=== PATIENT | female | born 1995 | race Caucasian/White ===

== ENCOUNTER → 2017-08-29 10:22 | Outpatient (CLI) | payer OTHER, SELFPAY ==
[2017-08-30 08:46] LABS: Progesterone Level 11.99 ng/mL (See Comment)
== END ==
PROVIDERS: Visit Provider Obstetrics & Gynecology
DX: N97.0 Female infertility associated with anovulation (principal)
CPT/HCPCS: 36415; 82670; 84144; 84403

== ENCOUNTER → 2017-10-10 11:00 | Outpatient (CLI) | payer OTHER, SELFPAY ==
[2017-10-10 15:15] LABS: Estradiol 65.6 pg/mL
[2017-10-11 09:52] LABS: Progesterone Level 4.11 ng/mL (See Comment)
== END ==
PROVIDERS: Visit Provider Obstetrics & Gynecology
DX: N92.6 Irregular menstruation, unspecified (principal)
CPT/HCPCS: 36415; 82670; 84144

== ENCOUNTER → 2018-02-05 15:27 | Outpatient (CLI) | payer OTHER, SELFPAY ==
[2018-02-07 11:38] LABS: HPV Reflexed? NOT INDICATED
== END ==
PROVIDERS: Visit Provider Obstetrics & Gynecology
DX: Z12.4 Encounter for screening for malignant neoplasm of cervix (principal)
CPT/HCPCS: 88175; G0145

== ENCOUNTER → 2018-03-01 08:58 | Outpatient (CLI) | payer OTHER, SELFPAY ==
[2018-03-01 10:08] LABS: hCG Titer Quant., Serum < 1 mIU/mL (<9 non-preg)
== END ==
PROVIDERS: Family Provider Physician Assistant; PCP Physician Assistant; Visit Provider Obstetrics & Gynecology
DX: N97.0 Female infertility associated with anovulation (principal)
CPT/HCPCS: 36415; 84702

== ENCOUNTER → 2018-07-22 07:04 | Outpatient (CLI) | payer OTHER, SELFPAY ==
[2018-07-22 08:10] LABS: Hematocrit 42.1 % (37-47); Hemoglobin 14.3 g/dl (12.0-15.0); Mean Corpuscular Hgb 29.4 pg (27.0-32.0); Mean Corpuscular Volume 86.6 fL (81-99); Mean Platelet Vol. 10.7 fl (6.2-12.0); Platelet Count 288 K/mm3 (150-450); RBC Distribution Width CV 12.6 % (11.6-14.6); RBC Distribution Width SD 39.5 fl (35.1-43.9); Red Blood Count 4.86 M/mm3 (4.2-5.4); Scan Indicated on CBC? Y/N NO; White Blood Count 6.5 K/mm3 (4.4-11.0)
[2018-07-22 08:31] LABS: Glucose 75GTT - Fasting 80 mg/dL (70-99)
[2018-07-22 08:42] LABS: AST(SGOT) 20 U/L (15-37); Alanine Aminotransfer ALT/SGPT 36 U/L (13-56); Albumin, Serum 3.8 g/dL (3.2-5.0); Alkaline Phosphatase 68 U/L (45-117); Anion Gap 8 (5-15); BUN 15 mg/dL (7-18); Chloride 107 mmol/L (98-107); Creatinine, Serum 0.79 mg/dL (0.55-1.02); EST Glomerular Filtration Rate 95 mL/min (>60); Est Glom Filt Rate - Afr Amer 114 mL/min (>60); GGTP 20 U/L (5-55); Globulin 3.9 g/dL (2.2-4.2); Glucose 80 mg/dL (74-106); Potassium 3.9 mmol/L (3.5-5.1); Protein, Total 7.7 g/dL (6.4-8.2); Sodium Level 140 mmol/L (136-145)
[2018-07-22 08:45] LABS: Hemoglobin A1c 5.3 % (4.2-6.3); Vitamin B12 606 pg/mL (211-911)
[2018-07-22 08:46] LABS: Insulin 75GTT - Fasting 17.5 mU/L (2.6-37.6)
[2018-07-22 08:47] LABS: Glucose 75GTT - 30 minutes 113 mg/dL (100-160)
[2018-07-22 09:45] LABS: Insulin 75GTT - 30 MIN 330.6 mU/L (Not Estab.)
[2018-07-22 09:59] LABS: Glucose 75GTT - 60 minutes 66 mg/dL (100-160)
[2018-07-22 10:01] LABS: Glucose 75GTT - 120 minutes 80 mg/dL (70-140)
[2018-07-22 10:05] LABS: Insulin 75GTT - 60 min 75.8 mU/L (Not Estab)
--- OUTSIDE RECORDS SUMMARY | 2018-09-23 07:11 | XMS RPT_ITS ---
:1995 Author Organization OHIP Care Team Providers Name Role Phone Traci Moore Attending Unavailable Traci Moore Referring Unavailable KHUSHBOO SCALES Primary Care Unavailable Tena Hooker Attending Unavailable Tena Hooker Attending Unavailable Tena Hooker Attending Unavailable Tena Hooker Attending Unavailable Tena Hooker Referring Unavailable KHUSHBOO SCALES Primary Care Unavailable PROBLEMS PROBLEMS DATE TYPE CONDITION / CODE ATTENDING STATUS SOURCE 03/01/2018 Unknown N97.0 - Female Tena Hooker [facility] anovulation / Repository N97.0(ICD-10) 02/05/2018 Unknown Z12.4 - Encounter Tena Hooker [facility] for screening for [facility] neoplasm of Repository cervix / Z12.4(ICD-10) PROCEDURES PROCEDURES No Procedure Records FoundRESULTS RESULTS CBC-COMPLETE BLOOD CNT Collected: 07/22/2018 Status: F Source: [place] NO DIFF 7:22 AM [facility] REPOSITORY TYPE CODE TESTS RESULT OUT OF RANGE REFERENCE UNITS LAB L100.1000 4.4-11.0 K/mm3 Normal WBC 6.5 LAB L100.1200 4.2-5.4 M/mm3 Normal RBC 4.86 LAB L100.1300 12.0-15.0 g/dl Normal HGB 14.3 LAB L100.1400 37-47 % Normal HCT 42.1 LAB L100.1500 81-99 fL Normal MCV 86.6 LAB L100.1600 27.0-32.0 pg Normal MCH 29.4 LAB L100.1700 32-36 g/gl Normal MCHC 34.0 LAB L100.1810 11.6-14.6 % Normal RDW CV 12.6 LAB L100.1820 35.1-43.9 fl Normal RDW SD 39.5 LAB L100.1900 150-450 K/mm3 Normal PLT 288 LAB L100.2000 6.2-12.0 fl Normal MPV 10.7 Performed By: #### L100.0500 #### [facility] [place], [address] 2 HR GLUCOSE TOLERANCE Collected: 07/22/2018 Status: F Source: [place] - 75 GM 7:22 AM [facility] REPOSITORY Order Comment: Is Patient Fasting? Y TYPE CODE TESTS RESULT OUT OF RANGE REFERENCE UNITS LAB L501.0703 70-99 mg/dL Normal GLU 75GTT 80 - F Result Comment: GLUCOSE TOLERANCE TEST Reference Interval Non- Adults Fasting 70 - 99 30 minutes 100 - 160 60 minutes 100 - 160 120 minutes 70 - 140 LAB L501.0705 100-160 mg/dL Normal GLU 75GTT - 30 113 Result Comment: GLUCOSE TOLERANCE TEST Reference Interval Non- Adults Fasting 70 - 99 30 minutes 100 - 160 60 minutes 100 - 160 120 minutes 70 - 140 LAB L501.0710 100-160 mg/dL Low GLU 75GTT - 60 66 Result Comment: GLUCOSE TOLERANCE TEST Reference Interval Non- Adults Fasting 70 - 99 30 minutes 100 - 160 60 minutes 100 - 160 120 minutes 70 - 140 LAB L501.0715 70-140 mg/dL Normal GLU 75GTT - 120 80 Result Comment: GLUCOSE TOLERANCE TEST Reference Interval Non- Adults Fasting 70 - 99 30 minutes 100 - 160 60 minutes 100 - 160 120 minutes 70 - 140 Performed By: #### L500.5100, L500.4050, L501.5100 #### [facility] [address] [place], [address] COMPREHENSIVE METABOLIC Collected: 07/22/2018 Status: F Source: [facility] 7:22 AM [facility] REPOSITORY Order Comment: Is Patient Fasting? Y TYPE CODE TESTS RESULT OUT OF RANGE REFERENCE UNITS LAB L501.0100 74-106 mg/dL Normal GLU 80 Result Comment: Please note revised GLUCOSE reference range effective 2017. LAB L501.1000 7-18 mg/dL Normal BUN 15 LAB L501.1100 0.55-1.02 mg/dL Normal CREAT,SERUM 0.79 Result Comment: The validity of the calculated GFR AND GFRAA in patients over 70 years has not been determined. Clinical correlation is essential. LAB L501.1110 >60 mL/min Normal EST GFR 95 Result Comment: Non- GFR Calc LAB L501.1115 >60 mL/min Normal EST GFR - AA 114 Result Comment: GFR Calc LAB L501.1300 10-20 RATIO Normal BUN/CRE 19.0 LAB L501.1500 6.4-8.2 g/dL T Normal PROT 7.7 LAB L501.1800 3.2-5.0 g/dL Normal ALB 3.8 LAB L501.1950 2.2-4.2 g/dL Normal GLOB 3.9 LAB L501.2000 0.9-2.4 RATIO Normal A/G 1.0 LAB L501.2200 8.5-10.1 mg/dL CA Normal 9.0 LAB L501.4100 15-37 U/L Normal AST 20 LAB L501.4305 45-117 U/L Normal ALK P 68 LAB L501.4405 13-56 U/L Normal ALT 36 LAB L501.4600 0.20-1.00 mg/dL T Normal BILI 0.30 LAB L501.5300 136-145 mmol/L NA Normal 140 LAB L501.5600 3.5-5.1 mmol/L K Normal 3.9 LAB L501.5900 98-107 mmol/L CL Normal 107 LAB L501.6100 21.0-32.0 mmol/L Normal CO2 25.0 LAB L501.6200 5-15 Normal GAP 8 Performed By: #### L500.5100, L500.4050, L501.5100 #### [facility] [address] [place], [address] GGTP Collected: 07/22/2018 Status: F Source: [place] 7:22 [facility] REPOSITORY Order Comment: Is Patient Fasting? Y TYPE CODE TESTS RESULT OUT OF RANGE REFERENCE UNITS LAB L501.5100 5-55 U/L Normal GGTP 20 Performed By: #### L500.5100, L500.4050, L501.5100 #### [facility] [address] [place], [address] HEMOGLOBIN A1C Collected: 07/22/2018 Status: F Source: [place] 7:22 AM [facility] REPOSITORY TYPE CODE TESTS RESULT OUT OF RANGE REFERENCE UNITS LAB L501.9985 4.2-6.3 % Normal HGB A1C 5.3 Performed By: #### L501.9985 #### [facility] [address] [place], [address] VITAMIN B12 Collected: 07/22/2018 Status: F Source: [place] 7:22 AM [facility] REPOSITORY TYPE CODE TESTS RESULT OUT OF RANGE REFERENCE UNITS LAB L503.0105 211-911 pg/mL Normal Vitamin B12 606 Performed By: #### L503.0105, L503.8055 #### [facility] [address] [place], [address] 2 HR INSULIN - 75 GM Collected: 07/22/2018 Status: F Source: [place] 7:22 AM [facility] REPOSITORY TYPE CODE TESTS RESULT OUT OF RANGE REFERENCE UNITS LAB L503.8060 2.6-37.6 mU/L Normal INSUL 17.5 75GTT - F LAB L503.8065 Not Estab. mU/L Normal INSU 330.6 75GTT - 30 LAB L503.8070 Not Estab mU/L Normal INSU 75.8 75GTT - 60 LAB L503.8075 Not Estab. mU/L Normal INSU 31.0 75GTT-120 Result Comment: 75 GRAM GLUCOLA INSULIN TEST Reference Interval Non- Adults Fasting 2.6 - 37.6 30 min Not Estab 60 min Not Estab 120 min Not Estab Performed By: #### L503.0105, L503.8055 #### [facility] [address] [place], [address] Observed: 03/02/2018 Status: F Source: [place] URINE CULTURE 9:49 PM [facility] REPOSITORY Sp. Request/Comment: - Specimen received in preservative Culture Result - 50,000 - <100,000 CFU/ml Normal urogenital rommel Performed By: #### URCUL #### [facility] [address] [place], [place] [address] PROGRESS Observed: 03/02/2018 Status: COMPLETED Source: [place] 10:15 AM [facility] REPOSITORY HNO ID: [id number] Author: Kirsty (Marcin) Older Service: (none) Author Type: Nurse Practitioner Type: Progress Notes Filed: 03/02/2018 10:31 AM Note Text: CC: Patient presents with: UTI Ear Infection HPI: Kaci Shirley is a 22 year old female who presents to the office with complaint of respiratory symptoms since . Symptoms are staying the same. Associated symptoms includes dizziness, nasal congestion, rhinorrhea, facial pain/pressure, sore throat, bilateral ear pressure, muffled hearing and intermittent bilateral ear pain. Denies fever, wheezing and dyspnea. Treatments tried include OTC cold medicine with minor relief of symptoms. Seasonal/environmental allergies: Yes Possible UTI, symptoms started last night. Symptoms include urinary urgency, increased frequency of urination and dysuria. The patient denies back pain, fever, nausea and vomiting. She has tried increasing her fluids to help to alleviate her symptoms. Denies known but trying to get and taking vitamins. Missed her last period, home tests were negative. Had serum drawn yesterday but does not have those results back yet. The ROS is otherwise negative. The patient's pmh, medications, allergies, and past visits are reviewed. PHYSICAL EXAM: BP 118/86 Pulse 92 Temp 36.7 ?C (98.1 ?F) (Left Tympanic) Resp 16 Wt 99.6 kg (219 lb 9.6 oz) LMP 01/28/2018 (Exact Date) SpO2 98% General appearance: healthy, alert, cooperative, pleasant, in no acute distress Head: Normocephalic Eyes: PERRLA, EOM's intact, conjunctiva pink and moist, no icterus, sclera white, non-injected Ears: Right ear: External ear/canal- Normal, TM - clear with good landmarks. Left ear: External ear/canal- Normal, TM - clear with good landmarks Nose: clear, no sinus tenderness. Oropharynx:moist without lesions, No erythema, exudates or tonsillar hypertrophy. Neck:supple and no adenopathy Heart: Negative. RRR without obvious murmur, gallop, or rubs. No ectopy. Lungs: clear to auscultation, without rales or wheeze, good air exchange Abdomen: soft, nondistended, with normal bowel sounds, mild tenderness RLQ abdomen without guarding or rebound, no hepatosplenomegaly or masses, no CVA tenderness ASSESSMENT/PLAN: 1. Dysuria - ICD9: 788.1, ICD10: R30.0 (primary diagnosis) acute - UA positive for hematuria - Send urine for culture - Begin treatment with Keflex 500 mg for 5 days. Pyridium as needed for dysuria - Patient education for prevention given - Follow-up if symptoms persist or worsen - UA DIP B/O - URINE CULTURE 2. Eustachian tube dysfunction, bilateral - ICD9: 381.81, ICD10: H69.83 Likely cause of dizziness and ear symptoms, no evidence of infection Can try OTC Flonase Follow-up as needed if symptoms persist or worsen 3. Vertigo - ICD9: 780.4, ICD10: R42 As above Prescription instructions reviewed with patient as applicable. Potential red flag symptoms discussed with the patient. Reviewed appropriate action plan to take if red flag symptoms occur. Patient agreeable to treatment plan. Kirsty Aquino APRN.CNP CNOV Observed: 03/02/2018 Status: COMPLETED Source: [place] 10:00 AM [facility] REPOSITORY Office Visit (WSTR) KACI SHIRLEY ([id number]) 1995 F Date Time Provider Department 03/02/18 10:00 AM KIRSTY AQUINO (MARCIN) WS During your visit today, we recorded the following information about you: Temperature Pulse Respiration Blood pressure 98.1 degrees 92/minute 16/minute 118/86 Weight Last Period 99.6 kg 01/28/18 Kirsty Aquino APRN.CNP 03/02/2018 10:31 AM Signed CC: Patient presents with: UTI Ear Infection HPI: Kaci Shirley is a 22 year old female who presents to the office with complaint of respiratory symptoms since . Symptoms are staying the same. Associated symptoms includes dizziness, nasal congestion, rhinorrhea, facial pain/pressure, sore throat, bilateral ear pressure, muffled hearing and intermittent bilateral ear pain. Denies fever, wheezing and dyspnea. Treatments tried include OTC cold medicine with minor relief of symptoms. Seasonal/environmental allergies: Yes Possible UTI, symptoms started last night. Symptoms include urinary urgency, increased frequency of urination and dysuria. The patient denies back pain, fever, nausea and vomiting. She has tried increasing her fluids to help to alleviate her symptoms. Denies known but trying to get and taking vitamins. Missed her last period, home tests were negative. Had serum drawn yesterday but does not have those results back yet. The ROS is otherwise negative. The patient's pmh, medications, allergies, and past visits are reviewed. PHYSICAL EXAM: BP 118/86 Pulse 92 Temp 36.7 ?C (98.1 ?F) (Left Tympanic) Resp 16 Wt 99.6 kg (219 lb 9.6 oz) LMP 01/28/2018 (Exact Date) SpO2 98% General appearance: healthy, alert, cooperative, pleasant, in no acute distress Head: Normocephalic Eyes: PERRLA, EOM's intact, conjunctiva pink and moist, no icterus, sclera white, non-injected Ears: Right ear: External ear/canal- Normal, TM - clear with good landmarks. Left ear: External ear/canal- Normal, TM - clear with good landmarks Nose: clear, no sinus tenderness. Oropharynx:moist without lesions, No erythema, exudates or tonsillar hypertrophy. Neck:supple and no adenopathy Heart: Negative. RRR without obvious murmur, gallop, or rubs. No ectopy. Lungs: clear to auscultation, without rales or wheeze, good air exchange Abdomen: soft, nondistended, with normal bowel sounds, mild tenderness RLQ abdomen without guarding or rebound, no hepatosplenomegaly or masses, no CVA tenderness ASSESSMENT/PLAN: 1. Dysuria - ICD9: 788.1, ICD10: R30.0 (primary diagnosis) acute - UA positive for hematuria - Send urine for culture - Begin treatment with Keflex 500 mg for 5 days. Pyridium as needed for dysuria - Patient education for prevention given - Follow-up if symptoms persist or worsen - UA DIP B/O - URINE CULTURE 2. Eustachian tube dysfunction, bilateral - ICD9: 381.81, ICD10: H69.83 Likely cause of dizziness and ear symptoms, no evidence of infection Can try OTC Flonase Follow-up as needed if symptoms persist or worsen 3. Vertigo - ICD9: 780.4, ICD10: R42 As above Prescription instructions reviewed with patient as applicable. Potential red flag symptoms discussed with the patient. Reviewed appropriate action plan to take if red flag symptoms occur. Patient agreeable to treatment plan. Kirsty Aquino APRN.TIRE CENTER MANAGER Referring Provider: SELF [200] Allergies As of Date: 03/02/2018 Noted Allergy Reaction AMOXICILLIN 03/02/2018 11 - Vomiting Date Reviewed: 03/02/2018 Reviewed by: Faina Peñaloza Ma - Fully Assessed Reason for Visit: UTI [116] Ear Infection [816] Primary Visit Diagnosis:Dysuria [R30.0] Other Visit Diagnoses:Eustachian tube dysfunction, bilateral [H69.83] Vertigo [R42] Order(s):UA DIP B/O [1282508] Order #: [id number] URINE CULTURE [SQURCUL] Order #: [id number] cephALEXin (KEFLEX) 500 mg capsuleTake 1 capsule by mouth twice daily for 5 days.Disp: 10 capsuleRfl: 0 phenazopyridine (PYRIDIUM) 200 mg tabletTake 1 tablet by mouth three times daily as needed.Disp: 6 tabletRfl: 0 Prescriptions as of 03/02/2018 Sig: -1 ORAL Take by mouth. CEPHALEXIN 500 MG CAPSULE Take 1 capsule by mouth twice* PHENAZOPYRIDINE 200 MG TABLET Take 1 tablet by mouth three * Problem List As Of Date: 03/02/2018 (None) Prescriptions ordered this encounter Disp Refills Start End CEPHALEXIN 500 MG CAPSULE 10 c* 0 03/02/2018 03/07/2018 Cmt: OKAY WITH PCN ALLERGY OF VOMITING Route: ORAL Sig: Take 1 capsule by mouth twice daily for 5 days. PHENAZOPYRIDINE 200 MG TABLET 6 ta* 0 03/02/2018 Route: ORAL Sig: Take 1 tablet by mouth three times daily as needed. Encounter Status:Closed by KIRSTY AQUINO CNP on 03/02/18 HCG TITER QUANT., Collected: 03/01/2018 Status: F Source: [place] SERUM 9:05 AM [facility] REPOSITORY TYPE CODE TESTS RESULT OUT OF RANGE REFERENCE UNITS LAB L700.8000 <9 non-preg mIU/mL Normal HCG < 1 QUANT. Performed By: #### L700.8000 #### [facility] [address] [place] [address]. 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 of containers..01 ThinPrep Vial TYPE CODE TESTS RESULT OUT OF RANGE REFERENCE UNITS LAB L7400.0800 . Normal DIAGN Comment Result Comment: NEGATIVE FOR INTRAEPITHELIAL LESION AND MALIGNANCY. LAB L7400.0900 . Normal ADEQ Comment Result Comment: Satisfactory for evaluation. No endocervical component is identified. LAB L7400.1400 . Normal PERFORM Comment Result Comment: Shital Truong, Acid Loader (ASCP) LAB L7400.2575 . Normal TEST METHOD Comment Result Comment: This liquid based ThinPrep(R) pap test was screened with the use of an image guided system. LAB L7400.2600 . Normal . COMM LAB L7400.2700 . Normal PAPSMR Comment Result Comment: The Pap smear is a screening test designed to aid in the detection of premalignant and malignant conditions of the uterine cervix. It is not a diagnostic procedure and should not be used as the sole means of detecting cervical cancer. Both false-positive and false-negative reports do occur. LAB L7400.2800 . Normal HPV RFLX Comment Result Comment: The HPV DNA reflex criteria were not met with this specimen result therefore, no HPV testing was performed. Performed at: - [facility] [id number] Casing Cleaner: Renetta Kee MD, Phone: [phone] Performed By: #### L7400.0350 #### [facility] (refer to report for specific site) refer to report for address and phone number ESTRADIOL Collected: 10/10/2017 Status: F Source: [place] 2:03 PM [facility] REPOSITORY TYPE CODE TESTS RESULT OUT OF RANGE REFERENCE UNITS LAB L3300.1750 pg/mL Normal ESTRADIOL 65.6 Result Comment: NORMAL REFERENCE RANGES FEMALE FOLLICULAR 21.4 - 164.8 pg/mL MID-CYCLE PEAK 49.9 - 367.2 pg/mL LUTEAL 40.2 - 259.0 pg/mL POST-MENOPAUSAL ON MHT <11.0 - 462.1 pg/mL NOT ON MHT <11.0 - 58.3 pg/mL MALE <11.0 - 52.5 pg/mL NOTE: [facility] HAS CONFIRMED THE DRUG FULVETRANT (FASLODEX) MAY CAUSE FALSELY ELEVATED ESTRADIOL RESULTS WHEN USING THIS TEST METHOD. IF PATIENT IS TAKING FULVESTRANT AN ALTERNATIVE METHOD SHOULD BE USED TO DETERMINE ESTRADIOL CONCENTRATION. Performed By: #### L3300.1750 #### [facility] [place], [place], [address] PROGESTERONE LEVEL Collected: 10/10/2017 Status: F Source: [place] 2:03 PM [facility] REPOSITORY TYPE CODE TESTS RESULT OUT OF REFERENCE UNITS RANGE LAB L509.4001 See Comment ng/mL Progesterone Normal 4.11 Result Comment: Progesterone Reference Table: UNITS Female: Follicular 0.15 - 1.40 ng/mL Luteal 3.34 - 25.56 ng/mL Mid-luteal 4.44 - 28.03 ng/mL Postmenopausal 0.0 - 0.73 ng/mL : 1st Trimester 11.22 - 90.00 ng/mL 2nd Trimester 25.55 - 89.40 ng/mL 3rd Trimester 48.40 -422.50 ng/mL Performed By: #### L509.4001 #### [facility] [address] [place], [place], [address] ESTRADIOL Collected: 08/29/2017 Status: F Source: [place] 10:27 AM [facility] REPOSITORY TYPE CODE TESTS RESULT OUT OF RANGE REFERENCE UNITS LAB L3300.1750 pg/mL Normal ESTRADIOL 51.0 Result Comment: NORMAL REFERENCE RANGES FEMALE FOLLICULAR 21.4 - 164.8 pg/mL MID-CYCLE PEAK 49.9 - 367.2 pg/mL LUTEAL 40.2 - 259.0 pg/mL POST-MENOPAUSAL ON MHT <11.0 - 462.1 pg/mL NOT ON MHT <11.0 - 58.3 pg/mL MALE <11.0 - 52.5 pg/mL NOTE: [facility] HAS CONFIRMED THE DRUG FULVETRANT (FASLODEX) MAY CAUSE FALSELY ELEVATED ESTRADIOL RESULTS WHEN USING THIS TEST METHOD. IF PATIENT IS TAKING FULVESTRANT AN ALTERNATIVE METHOD SHOULD BE USED TO DETERMINE ESTRADIOL CONCENTRATION. Performed By: #### L3300.1750 #### [facility] [address] [place], [address] TESTOSTERONE, SERUM TOTAL Collected: 08/29/2017 Status: F Source: [place] 10:27 AM [facility] REPOSITORY TYPE CODE TESTS RESULT OUT OF REFERENCE UNITS RANGE LAB L509.3000 ng/dL Testosterone Normal 42.56 Result Comment: NORMAL REFERENCE RANGES MALE AGE <50 123.06 - 813.86 ng/dL MALE AGE >50 89.98 - 780.10 ng/dL FEMALE PREMENOPAUSE AGE 21 - 60 9.01 - 47.94 ng/dL FEMALE POSTMENOPAUSE AGE 45 - 89 <7.00 - 45.62 ng/dL REFERENCE RANGE AND METHODOLOGY CHANGED 06/19/2017 Performed By: #### L509.3000, L509.4001 #### [facility] [address] [place], [address] PROGESTERONE LEVEL Collected: 08/29/2017 Status: F Source: [place] 10:27 AM [facility] REPOSITORY TYPE CODE TESTS RESULT OUT OF REFERENCE UNITS RANGE LAB L509.4001 See Comment ng/mL Progesterone Normal 11.99 Result Comment: Progesterone Reference Table: UNITS Female: Follicular 0.15 - 1.40 ng/mL Luteal 3.34 - 25.56 ng/mL Mid-luteal 4.44 - 28.03 ng/mL Postmenopausal 0.0 - 0.73 ng/mL : 1st Trimester 11.22 - 90.00 ng/mL 2nd Trimester 25.55 - 89.40 ng/mL 3rd Trimester 48.40 -422.50 ng/mL Performed By: #### L509.3000, L509.4001 #### [facility] [address] [place], [address] ALLERGIES ALLERGIES No Allergies Records FoundENCOUNTERS ENCOUNTERS ADMIT/DISCHARGE ACCOUNT ADMITTING ENCOUNTER LOCATION SOURCE NUMBER CLASS 07/22/2018 [id number] [facility] ing:LAB Repository 03/02/2018/03/05/20 [id number] Ambulatory [address] Repository 03/01/2018 [id number] [facility] ing:LAB.FUTUR Repository E 02/05/2018 [id number] [facility] ing:LABSPEC Repository 10/10/2017 [id number] [facility] ing:LAB.FUTUR Repository E 08/29/2017 [id number] [facility] ing:WOBLAB Repository PAYERS PAYERS ENCOUNTER GUARANTOR PAYER SUBSCRIBER SOURCE 07/22/2018 KACI Quintero Primary KACI [id number] RAMANA Insurance:AETNAPolicy CHUPPDOB: [address] Number: [id number] [address]Mmz: (330) [id number] Repository [phone] (HP) Date:[id number] [id number] [place] [address]IL: 07/22/2018 Secondary NOT GIVENUNK [place] Insurance:SELF PAY [facility] Number: Effective Repository Date:2018-07-21 03/01/2018 KACI P Primary KACI P [facility] [id number] TR Insurance:AETNAPolicy CHUPPDOB: [address] [place] Number: [id number] [address]Vqk: (330) [id number] Repository [phone] (HP) Date:7156-39-49RY [address] [place] [address]UW: 03/01/2018 Secondary NOT GIVENUNK [facility] Insurance:SELF PAY [facility] Number: Effective Repository Date:2018-02-28 02/05/2018 Kaci [id number] Primary Kaci ChuppDOB: [place] [address] Insurance:AETNAPolicy [id number] [address] Number: [facility] [address]Wbw: (330) [id number] Repository [phone] (HP) Date:1628-78-04VT [address] [place] [address]QY: 02/05/2018 Secondary NOT GIVENUNK [facility] Insurance:SELF PAY [facility] Number: Effective Repository Date:2018-02-05 10/10/2017 Kaci [id number] Primary Kaci ChuppDOB: [address] Insurance:AETNAPolicy [id number] [address] Number: [facility] [id number]: (330) [id number] Repository [phone] (HP) Date:2038-16-26[address] [place] [address]WF: 10/10/2017 Secondary NOT GIVENUNK [facility] Insurance:SELF PAY [facility] Hospital Number: Effective Repository Date:2017-10-10 08/29/2017 Kaci [id number] Primary Kaci GenaoB: [place] [facility] [address] Insurance:AETEmily [id number] Number: [facility] [address]Mix: ([phone]) [id number] Repository [phone] () Date:2741-47-69HO [address] [place] MCGOWAN [address]DC: 08/29/2017 Secondary NOT GIVENUNK [place] Insurance:SELF PAY [facility] Number: Effective Repository Date:2017-08-29
== END ==
PROVIDERS: Family Provider Physician Assistant; PCP Physician Assistant; Referring Provider Obstetrics & Gynecology; Visit Provider Obstetrics & Gynecology
DX: Z13.1 Encounter for screening for diabetes mellitus (principal); N97.0 Female infertility associated with anovulation
CPT/HCPCS: 36415; 80053; 82607; 82951; 82952; 82977; 83036; 83525; 83921; 85027

== ENCOUNTER → 2018-07-30 09:23 | Outpatient (CLI) | payer OTHER, SELFPAY ==
[2018-07-30 11:09] LABS: Estradiol 40.5 pg/mL; Follicle Stimulating Hormone 5.2 mIU/mL; Free T3 2.8 pg/mL (2.18-3.98); Prolactin 8.2 ng/mL; T4 Free Direct 0.84 ng/dL (0.76-1.46); Thyroid Stim Hormone (TSH) 1.99 uIU/mL (0.358-3.74)
[2018-07-30 11:20] LABS: Progesterone Level 0.51 ng/mL (See Comment)
[2018-07-31 04:08] LABS: DHEA Sulfate 364.8 ug/dL (110.0-431.7)
[2018-07-31 10:12] LABS: Sex Hormone-binding Globulin 68.7 nmol/L (24.6-122.0)
[2018-08-03 14:46] LABS: 17-Hydroxyprogesterone 86 ng/dL (.)
== END ==
PROVIDERS: Visit Provider Obstetrics & Gynecology
DX: N97.0 Female infertility associated with anovulation (principal); N91.2 Amenorrhea, unspecified; E28.8 Other ovarian dysfunction
CPT/HCPCS: 36415; 82306; 82533; 82627; 82670; 83001; 83498; 84144; 84146; 84270; 84403; 84439; 84443; 84481; 82626

== ENCOUNTER → 2018-10-01 08:39 | Outpatient (CLI) | payer OTHER, SELFPAY ==
[2018-10-01 11:01] LABS: Progesterone Level 2.68 ng/mL (See Comment)
== END ==
PROVIDERS: Visit Provider Obstetrics & Gynecology
DX: N97.0 Female infertility associated with anovulation (principal)
CPT/HCPCS: 36415; 84144

== ENCOUNTER → 2018-11-06 09:11 | Outpatient (CLI) | payer OTHER, SELFPAY ==
[2018-11-06 11:04] LABS: Progesterone Level 14.34 ng/mL (See Comment)
== END ==
PROVIDERS: PCP Obstetrics & Gynecology; Visit Provider Obstetrics & Gynecology
DX: N97.9 Female infertility, unspecified (principal)
CPT/HCPCS: 36415; 84144

== ENCOUNTER → 2018-12-08 10:38 | Outpatient (CLI) | payer OTHER, SELFPAY ==
[2018-12-08 14:11] LABS: Progesterone Level 5.86 ng/mL (See Comment)
== END ==
PROVIDERS: PCP Obstetrics & Gynecology; Visit Provider Obstetrics & Gynecology
DX: N97.9 Female infertility, unspecified (principal)
CPT/HCPCS: 36415; 84144

== ENCOUNTER → 2019-08-21 08:46 | Outpatient (CLI) | payer BC, SELFPAY ==
[2019-08-21 10:09] LABS: Anion Gap 6 (5-15); BUN 14 mg/dL (7-18); BUN/Creat Ratio 17.9 RATIO (10-20); Calcium,Total 8.9 mg/dL (8.5-10.1); Chloride 111 mmol/L (98-107); Creatinine, Serum 0.78 mg/dL (0.55-1.02); EST Glomerular Filtration Rate 94 mL/min (>60); Est Glom Filt Rate - Afr Amer 114 mL/min (>60); Glucose 71 mg/dL (74-106); Phosphorus 2.2 mg/dL (2.5-4.9); Potassium 3.9 mmol/L (3.5-5.1); Sodium Level 142 mmol/L (136-145)
== END ==
PROVIDERS: PCP Obstetrics & Gynecology; Referring Provider Obstetrics & Gynecology Reproductive Endocrinology; Visit Provider Obstetrics & Gynecology Reproductive Endocrinology
DX: E16.8 Other specified disorders of pancreatic internal secretion (principal)
CPT/HCPCS: 36415; 80048; 84100

== ENCOUNTER 2019-09-08 15:40 | Emergency (ER) | payer BC, SELFPAY ==
[2019-09-08 15:43] VITALS: BP 132/89; PULSE 93; RESP 15; TEMP 36.8; O2SAT 96; BMI 31.5
--- NOTE | 2019-09-08 16:11 | CT_ITS ---
STUDY: CT ABDOMEN AND PELVIS WITHOUT CONTRAST REASON FOR EXAM: Female, 24 years old. Right lower quadrant abdominal pain RADIATION DOSAGE (If Supplied By Facility): CTDIvol = ( 20.25 ) mGy, DLP = ( 1077.57 ) mGycm TECHNIQUE: Transaxial images were obtained from the dome of the diaphragm to the symphysis pubis without oral contrast, and without intravenous contrast. Sagittal and coronal images were reconstructed. Individualized dose optimization techniques were used for this CT. COMPARISON: None. FINDINGS: The visualized lung bases are unremarkable. The visualized portions of the heart are within normal limits. Normal liver. Normal gallbladder and extrahepatic biliary system. Normal spleen. Normal pancreas. Normal bilateral adrenal glands. Normal right kidney. Normal left kidney. Normal visualized stomach. Normal small intestine. Normal colon. The appendix is visualized and appears normal. Normal abdominal aorta. Normal inferior vena cava. Normal retroperitoneum. Normal urinary bladder. Normal abdominal wall. Normal osseous structures. CT/Abdomen/Pelvis without Cont IMPRESSION: Normal abdomen, no acute findings. Normal appendix. Electronically Signed: Natalie Tobar, at 16:55 EDT Tel , Service support ,
--- NOTE | 2019-09-08 16:12 | ED.DCSUM_ITS ---
- ER Visit Summary Date of Service: 09/08/19 Chief Complaint: [Abdominal pain] History of Present Illness: The patient is a 24 F [ presents the emergency department with right nominal pain that started around 2:30 PM. Initially the pain was mild and she felt like she needed to use the restroom and have a bowel movement and then the pain became more severe on the right side. She denies any nausea or vomiting. She denies fever. She denies urinary symptoms. She is never had pain like this before. She rates the pain a 10 out of 10. Patient states that she started sweating because of the amount of pain she was having. Patient's last menstrual period was August 19. She is never been . Patient does have history of PCOS. Patient has had no prior surgical history.] Physical Examination: [HEENT-PERRLA, EOMI. Cranial nerves II through XII grossly intact. TMs clear. Mucous membranes moist. No adenopathy. Cardiovascular-regular rate and rhythm without murmur or ectopy Lungs-clear to auscultation, chest wall stable without crepitus or subcu emphysema Abdomen-normoactive bowel sounds, soft. Patient is tenderness palpation over the right lower quadrant with some guarding. There is no rebound, rigidity, or peritoneal signs. Extremities-intact ?4, normal range of motion, normal pulses, atraumatic] Test Results: CBC with differential showing a 7.2, hemoglobin 12.8, hematocrit 39, placed to 84. Chemistries unremarkable. Urinalysis was normal. hCG was negative. CT scan of the abdomen pelvis without contrast showed nothing acute. Pelvic ultrasound obtained was normal. [] Emergency Department Course and Treatment: [Patient on arrival was medicated morphine, Toradol, and Zofran for good pain relief with that. Patient's pain did return and she was given 1 more dose of morphine. On repeat exam she is feeling improved.] Treatment Plan: [This point etiology of patient's pain is unclear. Patient will be referred to her [facility] for follow-up as well as general surgery on-call. Patient does not want to be admitted for pain control although I did give her this is an option. Patient will be given a prescription for [place] for pain] Disposition: [Discharged home in stable condition] Impression: [Abdominal pain-etiology uncertain] This note was generated with [employer] software. It may contain incorrect words, spelling, and punctuation that were not noted in review of the chart prior to signing ED Disposition - Plan for ED Patient: Referrals: Ericka Gresham PA [Primary Care Provider] -
[2019-09-08] MEDS: 0.9% Normal Saline 1,000 ML 125 ML IV (16:16)
[2019-09-08] MEDS: Ondansetron 4 MG/2 ML Vial IV (16:16)
[2019-09-08] MEDS: Morphine 4 MG/ML Syringe IV ×2 (16:17→18:57)
[2019-09-08] MEDS: Ketorolac 30 MG/ML Syringe IV (16:17)
[2019-09-08 16:26] LABS: Absolute Lymphocyte Count 2.37 X10^3/uL (0.83-4.51); Absolute Neutrophil Count 4.1 X10^3/uL (2.0-7.7); Basophil# 0.02 X10^3/uL; Basophil% 0.3 % (0-1); Eosinophil# 0.14 X10^3/uL; Eosinophils% 1.9 % (0-5); Hematocrit 38.7 % (37-47); Hemoglobin 12.8 g/dL (12.0-15.0); Lymphocyte # 2.37 X10^3/ul (4.0); Mean Corp Hgb Conc 33.1 g/dL (32-36); Mean Corpuscular Hgb 28.5 pg (27.0-32.0); Mean Corpuscular Volume 86.2 fL (81-99); Mean Platelet Vol. 10.1 fl (6.2-12.0); Monocyte# 0.49 X10^3/uL; Monocyte% 6.8 % (0-10); NRBC Flagged by Analyzer 0 % (0-5); Neutrophil # 4.14 X10^3/uL (2.7-7.7); Neutrophil % 57.7 % (47-70); Platelet Count 284 K/mm3 (150-450); RBC Distribution Width CV 12.5 % (11.6-14.6); RBC Distribution Width SD 39.4 fl (35.1-43.9); Red Blood Count 4.49 M/mm3 (4.2-5.4); White Blood Count 7.2 K/mm3 (4.4-11.0)
[2019-09-08 16:32] LABS: Internal QC Validated? YES +Cl - CLEAR BKGD; Pregnancy, Serum, hCG Quali. NEGATIVE Negative
[2019-09-08 16:34] LABS: Anion Gap 6 (5-15); BUN 17 mg/dL (7-18); BUN/Creat Ratio 20.1 RATIO (10-20); Calcium,Total 9.3 mg/dL (8.5-10.1); Chloride 108 mmol/L (98-107); Creatinine, Serum 0.84 mg/dL (0.55-1.02); EST Glomerular Filtration Rate 87 mL/min (>60); Est Glom Filt Rate - Afr Amer 105 mL/min (>60); Estimated Creatinine Clearance 109.75 ml/min; Glucose 74 mg/dL (74-106); Potassium 3.7 mmol/L (3.5-5.1); Sodium Level 140 mmol/L (136-145)
--- NOTE | 2019-09-08 16:58 | US_ITS ---
PROCEDURE: ULTRASOUND OF THE FEMALE PELVIS - COMPLETE REASON FOR EXAM: Female, 24 years old. RLQ PAIN-X 3 HOURS SEVERE TECHNIQUE: Transabdominal and Transvaginal TECHNICAL QUALITY: Adequate. COMPARISON: CT of abdomen and pelvis dated September 08, 2019 FINDINGS: The uterus is anteverted and is in a midline position. The uterus measures 8.3 x 4.1 x 3.2 cm. There is no demonstrated myometrial mass. The endometrium measures 7 mm in thickness, and is hyperechoic. There is no demonstrated endometrial mass. Normal uterine cervix. The right ovary is visualized. The right ovary measures 3.7 x 3.5 x 2.4 cm. There is no right ovarian cyst or ovarian mass. There is no visualized right adnexal mass or complex lesion. The left ovary is visualized. The left ovary measures 3.2 x 2.4 x 2.2 cm. There is no left ovarian cyst or ovarian mass. There is no visualized left adnexal mass or complex lesion. Normal color vascular flow and Doppler signal is demonstrated in both ovaries. There is no fluid in the cul-de-sac. US/Transvaginal Non- IMPRESSION: No demonstrated acute or significant abnormality. Electronically Signed: Cristobal Merritt MD at 19:05 EDT , Service support ,
[2019-09-08 17:31] LABS: Mucous, Urine 0 SEEN /hpf (<or=2+); Red Blood Cells-Urine 0 SEEN /hpf (0-5); White Blood Cells 0 SEEN /hpf (0-5)
[2019-09-08 17:33] LABS: Color, Urine Straw (Yellow); Glucose, Dipstick Normal (Normal); Ketone-Dipstick Negative (Negative); Leukocyte Esterase-Dipstick Negative /ul (Negative); Nitrite-Dipstick Negative (Negative); Occult Blood-Urine Negative /ul (Negative); Protein-Dipstick Negative (Negative); Urine Bilirubin Dipstick Negative (Negative); Urine Clarity Sl. Cloudy (Clear); Urine Urobilinogen Normal (Normal)
[2019-09-08 18:21] LABS: Bacteria 1+ /hpf (None Seen); Squamous Epithelial Cells - UA 0-5 SEEN /hpf (5-10)
[2019-09-08 18:24] VITALS: BP 121/82; PULSE 86; RESP 16; O2SAT 97
--- NOTE | 2019-09-08 19:45 | DCINST.ED_ITS ---
ED Disposition - Plan for ED Patient: Instructions: ABDOMINAL PAIN, Unknown Cause, (Female) Prescriptions: Hydrocodone Bitart/Apap 5-325 [[place] 5MG-325MG] 1 tablet PO Q4H PRN PRN 2 Days #14 tablet PRN Reason: Pain Transmission Status: Sent to [facility] Referrals: Ericka Gresham PA [Primary Care Provider] - Traci Moore MD [STAFF PHYSICIAN] - 3-5 Days Randy Mansfield MD [STAFF PHYSICIAN] - 3-5 Days
== END 2019-09-08 19:58 | disposition home or self-care (01) ==
LOC: ED 16:34
PROVIDERS: Emergency Provider Emergency Medicine; PCP Physician Assistant
DX: R10.9 Unspecified abdominal pain (principal); E28.2 Polycystic ovarian syndrome
CPT/HCPCS: 74176; 76830; 80048; 81001; 84703; 85025; 93976; 96361; 96374; 96375; 96376; 99285; J7030; A4216; J2405

== ENCOUNTER → 2020-03-11 07:51 | Outpatient (CLI) | payer BC, SELFPAY ==
--- NOTE | 2020-03-11 07:53 | CT_ITS ---
STUDY: CT BRAIN AND SINUSES WITHOUT CONTRAST REASON FOR EXAM: Female, 24 years old. RECURRENT RT EAR INFECTIONS RADIATION DOSAGE (If Supplied By Facility): CTDIvol = ( 33.06 ) mGy, DLP = ( 862.77 ) mGycm TECHNIQUE: Transaxial CT imaging of the brain was performed without administration of contrast. Individualized dose optimization techniques were used for this CT. COMPARISON: No relevant priors. FINDINGS: CT BRAIN Normal soft tissue structures. Normal calvarium. Normal size ventricles and extra-axial spaces for the patient''s age. Normal white matter tracts of the cerebral hemispheres. Normal basal ganglia and thalami. Normal brainstem. Normal cerebellum. There is no intracranial hemorrhage. There are no findings of an acute ischemic infarction. CT SINUSES Post Surgical Changes: None. Frontal Sinus and Recess: Minimal mucosal thickening along the anterior aspect of the frontal sinuses bilaterally. Ethmoidal Sinuses: Partial opacification of the ethmoid sinuses bilaterally. Maxillary Sinuses: Partial opacification of the right maxillary sinus. Partial opacification of the inferior aspect of the left maxillary sinus. Ostiomeatal Complex: Clear. Sphenoid Sinus: Normal aeration without mucosal inflammatory disease. Sphenoethmoidal Recess: Clear. Nasal Turbinate (Right): Middle Turbinate (Right): Julisa bullosa of the right middle turbinate. Middle Turbinate (Left): Normal. Inferior Turbinate (Right): Normal. Inferior Turbinate (Left): Normal. Nasal Septum: Midline. Nasal Airway: Clear. Cribiform Plate / Anterior Cranial Fossa: Normal. Orbits: Normal. CT/Sinus/Facial Bone IMPRESSION: Partial opacification of the maxillary sinuses worse on the right side. Partial opacification of the ethmoid sinuses bilaterally. Electronically Signed: Cb King, at 10:54 EDT , Service support ,
== END ==
PROVIDERS: PCP Physician Assistant; Referring Provider Otolaryngology; Visit Provider Otolaryngology
DX: J32.9 Chronic sinusitis, unspecified (principal)
CPT/HCPCS: 70486

== ENCOUNTER 2020-05-19 08:21 | Day surgery (SDC) | payer BC, SELFPAY ==
[2020-05-12 11:09] LABS: Hematocrit 43.5 % (37-47); Hemoglobin 14.3 g/dL (12.0-15.0); Mean Corp Hgb Conc 32.9 g/dL (32-36); Mean Corpuscular Hgb 28.5 pg (27.0-32.0); Mean Corpuscular Volume 86.7 fL (81-99); Mean Platelet Vol. 10.5 fl (6.2-12.0); Platelet Count 339 K/mm3 (150-450); RBC Distribution Width CV 12.5 % (11.6-14.6); RBC Distribution Width SD 39.4 fl (35.1-43.9); Red Blood Count 5.02 M/mm3 (4.2-5.4); White Blood Count 6.1 K/mm3 (4.4-11.0)
[2020-05-12 11:15] LABS: Prothrombin Time (Protime)PT. 12.7 SECONDS (11.7-14.9)
[2020-05-12 11:16] LABS: Partial Thromboplast Time 31.2 Seconds (24.1-36.2)
[2020-05-19] VITALS (11 sets, daily range): BP systolic 98–132; BP diastolic 64–86; PULSE 82–109; RESP 16–18; TEMP 36.2–36.4; O2SAT 92–100; BMI 30.2
--- NOTE | 2020-05-19 07:38 | HP.PCM_ITS ---
- Problem List (1) Dysmenorrhea Status: Acute (2) PCOS (polycystic ovarian syndrome) Status: Acute (3) Abdominal pain Status: Acute (4) Infertility Status: Acute History and Physical Date of Admission: 05/19/20 Surgical History and Physical Date: 05/12/2020 Name: KACI TREJO Age: 24 Date of : 1995 Kaci Trejo, a 24 year old female 0 0 0 0 0, presents for Diagnostic laparoscopy, surgical treatment of endometriosis as indicated, ovarian wedge resection on May 19, 2020 at 11:45. -- Known hx PCOS, dysmenorrhea and infertility with recurrent lower abdominal pain with associated colitis concerning for endometriosis. Plan for diagnostic laparoscopy, surgical treatment of endometriosis as indicated, possible ovarian wedge resection versus ovarian drilling. MEDICATIONS HISTORY: Current medications prescribed by our practice are: 1. metformin ER 750 mg tablet,extended release 24 hr, 1 PO BID ALLERGIES: Amoxicillin, Severe gi distress, Dermabond, Facial edema, Amoxicillin, Gastritis, Amoxicillin and Hives and/or rash Infections - Chicken pox Illnesses - none Accidents - no injuries of consequence Hospitalizations - see surgery Review of Systems: GENERAL - Denies fever, or chills SKIN - Denies skin changes EYES - Denies visual changes EARS - Denies difficulty hearing NOSE - Denies nasal congestion or bleeding MOUTH - Denies sore throat or difficulty swallowing NECK - Denies pain or swelling RESPIRATORY - Denies shortness of breath or wheezing CARDIOVASCULAR - Denies palpitations or chest pain GASTROINTESTINAL - Denies nausea, vomiting, diarrhea, constipation GENITOURINARY - Denies dysuria, frequency of urination, incontinence of urine MUSCULOSKELETAL - Denies joint or muscle pain NEUROLOGICAL - Denies localized numbness or weakness PSYCHIATRIC - Denies depression or anxiety ENDOCRINE - Denies heat or cold intolerance, weight loss or gain HEMATO-IMMUNOLOGIC - Denies excesive bleeding with cuts SOCIAL HISTORY: Alcohol Use - denies drinking Smoking - denies smoking Diet - no special diet Lifestyle - Exercise - active Seat Belt Use - always 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 Paternal Grandmother: Heart Disease. Paternal Grandfather: DM II and Hypertension. MENSTRUAL HISTORY: LMP Known?- DefiniteAmount/Duration - 7 to 10 days, Regularity - Irregular, Frequency - monthly days, Prior Menses - 03/01/2012, LMP - 04/29/20, Age Onset Menarche - 11 PAST PREGNANCIES: Total Pregnancies - 0; Full Term Pregnancies - 0; Premature - 0; Abortions, Induced - 0; Abortions, Spontaneous - 0; Ectopics - 0; Multiple Births - 0; Living Children - 0 SURGICAL HISTORY: 1. Ear tubes, x7: age 15 mos-12 yrs ; - 2. Broken ankle ; - PHYSICAL EXAM BP- 130/72 Sitting, Left arm, large cuff Weight- 234.81827 lbs Height- 68.25 inch BMI:35.39 CONSTITUTIONAL - NAD, well nourished, and well developed SKIN - No rash, lesions, or ulcers HEENT - normocephalic, atraumatic, sclerae anicteric LUNGS - CTA x2 without wheezes, crackles or rales CARDIAC - Regular rate and rhythm without rubs, murmurs, or gallops ABDOMEN - Without hepatosplenomegaly, distention, masses, rebound, or guarding; normal bowel sounds; no hernias EXTREMITIES - No edema or calf tenderness NEUROLOGICAL - normal gait, normal balance, normal motor PSYCHIATRIC - A and O to time, place, person, mood and affect External Genitial Vagina - non-tender without lesions Urethra/Urethral Meatus - non-tender Bladder - non-tender Vagina - vaginal rebollar are pink and moist without loss of rugae and no evidence of atropy Cervix - without cervical motion tenderness and has normal size and features without evident lesions Uterus - 5-6 cm in size, mobile and nontender Adnexa - clear without massess or tenderness Pap - 2020 NILM ASSESSMENT/PLAN: 1. Body Mass Index (bmi) 34.0-34.9, Adult, Disorder Of Pancreatic Internal Secretion, Unspecified, Dysmenorrhea (painful Menses), Other Ovarian Dysfunction and Polycystic Ovarian Syndrome hx dysmenorrhea and PCOS Plan for diagnostic laparoscopy, surgical treatment of endometriosis as indicated Discussed ovarian wedge resection versus ovarian drilling with review of r/b given PCOS Procedural r/b/i/a reviewed, discussed that I do not treat advanced stage endometriosis, pt given option of referral to expert pelvic laparoscopist and declines, understands will plan referral post op if advanced endometriosis Preop instructions and postoperative recovery reviewed
[2020-05-19 08:44] LABS: Internal QC Validated? YES +Cl - CLEAR BKGD
[2020-05-19 08:45] LABS: Pregnancy, Urine Negative Negative
[2020-05-19] MEDS: Lactated Ringers 1,000 ML 100 ML IV ×3 (09:12→16:24)
--- NOTE | 2020-05-19 09:55 | MISC_PTH ---
PATIENT: KACI SHIRLEY [place] [facility] [place][id number] AGE/SX: 24/F ROOM: RE05/19/[address]: Dr. Traci Castellon MD : 1995 BED: DIS: 05/19/2020 SPEC #: [id number] RECD: 05/19/20 13:50 STATUS: JAIDA REAlejandra #: [id number] FERNANDO: 05/19/20 09:[address]: Traci Antoine DEPT: SURGICAL PATHOLOGY RECD BY: Magnolia Taylor ENTERED: 05/20/20 08:33 SP [place] [facility] [place]: SCHUYLER Diez Tissues: A - Perineum, NOS B - Perineum, NOS Procedures: Surgery Specimen Level IV HEADER OPERATION: Diagnostic laparoscopy, treatment of endometriosis PRE-OP DIAGNOSIS: Dysmenorrhea; polycystic ovarian syndrome; abdominal pain; infertility TISSUE SUBMITTED: A - Left ovarian fossa peritoneum to rule out endometriosis, B - Left adnexal peritoneum to rule out endometriosis MICROSCOPIC DIAGNOSIS A. Left ovarian fossa peritoneum, biopsy: Fibrosis and minimal chronic inflammation. No evidence of endometriosis. B. Left adnexal peritoneum, biopsy: Fibrosis and minimal chronic inflammation. No evidence of endometriosis. AM:miranda 05/23/20 MICROSCOPIC DESCRIPTION Slides are reviewed. GROSS DESCRIPTION A - Received in fixative is one container labeled with the patient's name and designated left ovarian fossa peritoneum. The specimen consists of a single irregular fragment of hernandez tissue measuring 1.5 x 1 x 0.1 cm. The specimen is totally submitted in one cassette. B - Received in fixative is one container labeled with the patient's name and designated left adnexal peritoneum. The specimen consists of one irregular fragment of light hernandez soft tissue that measures 0.3 x 0.2 x 0.1 cm. The specimen is totally submitted in one cassette. / AM:miranda 05/20/20 TC:3 CPT: 73254 x2
[2020-05-19] MEDS: Bupivacaine Mpf 0.5% 30 ML VIAL (10:37)
--- NOTE | 2020-05-19 12:22 | PCM.OPRPT ---
Problem List (1) Dysmenorrhea Status: Acute (2) PCOS (polycystic ovarian syndrome) Status: Acute (3) Abdominal pain Status: Acute (4) Infertility Status: Acute Report of Operation Date of Procedure: 05/19/20 Pre-Operative Diagnosis: 1. Dysmenorrhea. 2. Polycystic ovarian syndrome. 3. Infertility Post-Operative Diagnosis: 1. Dysmenorrhea. 2. Polycystic ovarian syndrome. 3. Infertility Surgery/Procedure Performed:: Diagnostic laparoscopy. Peritoneal biopsies. Lysis of adhesions. Ovarian drilling Description of Surgical Findings:: Pelvic vascular congestion Questionable endometriotic lesion at right ovarian fossa and right adnexal peritoneum with white flecks Right polycystic enlarged ovary chief technician x ray: Mattie Echeverria Type of Anesthesia:: General, Local Anesthesiologist: Paresh Orlando Specimen's removed: 1. r. ovarian fossa peritoneum. 2. r. adnexal peritoneum Estimated Blood Loss (mL): 10 Fluids Replaced: 1300ml Description of Procedure: Patient was brought to the operating room and placed in the dorsal supine position. She was induced under general anesthesia and intubated. She was repositioned into dorsal lithotomy and examination under anesthesia performed. The perineum was prepped, straight catheterization of the bladder performed and the patient draped in sterile fashion. A weighted speculum was placed vaginally and the cervix grasped with a single tooth tenaculum at the anterior cervical lip. The uterus was sounded and a ZAMI uterine manipulator was placed and secured. The speculum and tenaculum were removed. The patient was placed into low lithotomy. Attention was turned to the abdomen. An inferior umbilical incision was made with the scalpel. A Veress needle was placed with successful hang drop test and no aspirate with abdominal entry pressures < 5mmHg. The abdomen was insufflated to 15mmHg. The Veress was removed and a 5mm port placed under laparoscopic guidance confirming entry into the abdominal cavity. Patient was placed into Trendelenburg and a suprapubic incision was made and a 5mm port placed at the site. The abdomen and pelvis were inspected showing pelvic vascular congestion diffusely, however no clear evidence of endometriosis. There was a small questionable endometriotic lesion at right ovarian fossa and right adnexal peritoneum with white flecks noted. Bilateral TAP blocks were placed using 0.5% sensorcaine under laparoscopic guidance and incisions were made at each of these sites in the right and left lower quadrants respectively approximately two fingerbreadths superior and medial to the ASIS's. 5mm ports were placed at these site. The area of possible right ovarian fossa endometriosis was demarcated at the peritoneum with wide margin using the monopolar L hook. The peritoneum was stripped using blunt and sharp dissection to excise the lesion with visualization of the ureter transperitoneally before, during and after the excision. The right adnexal lesion was similar demarcated with electrocoagulation and excised from the broad ligament peritoneum. There was good hemostasis and the ureter clear from the excisional site. I drilled the right ovary 8 times using the L-hook with electrocoagulation. Similarly, I drilled the left ovary 6 times. The procedure was complete. The abdomen was desufflated, ports removed. The skin was closed using 4-0 monocryl by the TELEPHONE SALES AGENT under my supervision. Steristrips and opsite were placed over the incisions. The patient was placed into high lithotomy and the uterine manipulator was removed and tenaculum sites at the cervix were notably hemostatic. The patient was placed into dorsal supine position, awakened, extubated and transferred to the recovery room without complication. Sponge, needle counts were correct x 2. - Complications None - Admit VTE Documentation VTE Present on Admission: No VTE Mechan Device Prophylaxis: SCD's VTE Pharm Prophylaxis ordered?: No
--- NOTE | 2020-05-19 12:34 | PCM.DC ---
- Discharge Diagnoses Current Active Problems: Current Active and Chronic Problems Dysmenorrhea (Acute) PCOS (polycystic ovarian syndrome) (Acute) Abdominal pain (Acute) Infertility (Acute) You will use the following diet at home:: No restrictions Your food should be the consistency of: Regular Discharge Activity: Return to Normal Activity, May not drive while taking narcotic pain medications., May Shower, - - No tub bath, tampons, douching or intercourse May resume sexual activity in: 4 weeks, - Lifting Restrictions: 10 lb Call your doctor if you observe: Fever of 101 or Higher, Inability to urinate, Inability to have a bowel movement, Using more than one pad per hour, Shortness of breath, Chest pain, Calf discomfort, Uncontrolled pain Allergies/Adverse Reactions: Allergies amoxicillin Allergy (Verified 05/19/20 08:40) Hives dermabond Allergy (Uncoded 05/19/20 08:40) Swelling Medications to take at Discharge Metformin HCl [Glucophage] 500 mg PO BID 09/08/19 Ascorbic Acid [Vitamin C] 500 mg PO DAILY 05/11/20 Vits [Prenatabs FA] 1 tab PO DAILY 05/11/20 Ibuprofen 600 mg PO TID PRN #30 tab 05/19/20 Oxycodone [Oxyir] 5 mg PO Q6H PRN PRN 5 Days #20 tab 05/19/20 The following prescriptions were given: Ibuprofen 600 mg PO TID PRN #30 tab PRN Reason: Pain Score 1-10 Transmission Status: Pending to [facility] Oxycodone [Oxyir] 5 mg PO Q6H PRN PRN 5 Days #20 tab PRN Reason: severe pain Transmission Status: Received by [facility] Primary Care Physician: Ericka Gresham PA [Primary Care Provider] - Test Results: Test results from this visit will be discussed in further detail at your follow-up appointment, if applicable. Please Follow Up With: Traci Antoine MD When: 2-4 weeks
[2020-05-19] MEDS: HYDROcodone Bitartrate/Apap 5/325 Tablet PO (14:43)
[2020-05-19 16:15] LABS: Bedside Glucose 161 mg/dL (70-110)
--- NOTE | 2020-05-19 16:15 | SUR.PHASEII ---
1600 pt sat on side of bed for 2 minutes. no dizziness or light headedness. lips pink. pt voiced she was ready to walk to bathroom. when out of room and almost to bathroom pt became weak. pt was sat in a chair. and then to bed. blood sugar 161. vs wnl. 119/81. pulse 100, spo2 96%. abdominal dressings dry and intact. meme pad with minimal red drainage. pt reported she is hungry. spouse obtained food from [employer].
--- NOTE | 2020-05-19 17:31 | SUR.PHASEII ---
1700 pt ambulated to the br. voided. returned to bed. assisted with getting dressed. pt sleepy.
== END 2020-05-19 17:33 | disposition home or self-care (01) ==
LOC: SDC 08:21 → AC 08:22
PROVIDERS: Anesthesiology; PCP Physician Assistant; Referring Provider Obstetrics & Gynecology; Visit Provider Obstetrics & Gynecology
PROC: (CPT 49320; principal; 2020-05-19 09:40)
DX: N94.6 Dysmenorrhea, unspecified (principal); E28.2 Polycystic ovarian syndrome; Z79.84 Long term (current) use of oral hypoglycemic drugs; Z82.49 Family history of ischemic heart disease and other diseases of the circulatory system; Z88.0 Allergy status to penicillin
CPT/HCPCS: 49321; 58999; 36415; 81025; 82962; 85027; 85610; 85730; 86850; 86900; 86901; 87426; 88305; C9803; J7120; J2405

== ENCOUNTER → 2020-06-30 12:03 | Outpatient (CLI) | payer BC, SELFPAY ==
[2020-05-19 08:42] VITALS: BMI 30.2
[2020-06-30 13:19] LABS: Estradiol 36.4 pg/mL; Follicle Stimulating Hormone 4.2 mIU/mL; Luteinizing Hormone 6.7 mIU/mL; Thyroid Stim Hormone (TSH) 1.58 uIU/mL (0.358-3.74)
[2020-06-30 13:38] LABS: Progesterone Level 0.65 ng/mL (See Comment); hCG Titer Quant., Serum < 1 mIU/mL (1-3)
== END ==
PROVIDERS: PCP Physician Assistant; Visit Provider Obstetrics & Gynecology Reproductive Endocrinology
DX: E28.9 Ovarian dysfunction, unspecified (principal)
CPT/HCPCS: 36415; 82670; 83001; 83002; 84144; 84443; 84702

== ENCOUNTER → 2020-07-05 10:24 | Outpatient (CLI) | payer BC, SELFPAY ==
[2020-05-19 08:42] VITALS: BMI 30.2
== END ==
PROVIDERS: PCP Physician Assistant; Referring Provider Obstetrics & Gynecology Reproductive Endocrinology; Visit Provider Obstetrics & Gynecology Reproductive Endocrinology
DX: Z11.59 Encounter for screening for other viral diseases (principal)
CPT/HCPCS: 87635; C9803; U0005; U0003

== ENCOUNTER → 2020-07-06 08:57 | Outpatient (CLI) | payer BC, SELFPAY ==
[2020-05-19 08:42] VITALS: BMI 30.2
[2020-07-06 10:26] LABS: Estradiol 88.8 pg/mL; Luteinizing Hormone 3.7 mIU/mL
[2020-07-06 10:30] LABS: Progesterone Level 0.65 ng/mL (See Comment)
== END ==
PROVIDERS: PCP Physician Assistant; Visit Provider Obstetrics & Gynecology Reproductive Endocrinology
DX: E28.9 Ovarian dysfunction, unspecified (principal)
CPT/HCPCS: 36415; 82670; 83002; 84144

== ENCOUNTER → 2020-07-08 09:22 | Outpatient (CLI) | payer BC, SELFPAY ==
[2020-05-19 08:42] VITALS: BMI 30.2
== END ==
PROVIDERS: PCP Physician Assistant; Referring Provider Obstetrics & Gynecology Reproductive Endocrinology; Visit Provider Obstetrics & Gynecology Reproductive Endocrinology
DX: Z11.59 Encounter for screening for other viral diseases (principal)
CPT/HCPCS: 87635; C9803; U0005; U0003

== ENCOUNTER → 2020-07-08 09:43 | Outpatient (CLI) | payer BC, SELFPAY ==
[2020-05-19 08:42] VITALS: BMI 30.2
[2020-07-08 10:59] LABS: Estradiol 453.4 pg/mL; Luteinizing Hormone 3.7 mIU/mL
[2020-07-08 11:00] LABS: Progesterone Level 1.02 ng/mL (See Comment)
== END ==
PROVIDERS: PCP Physician Assistant; Visit Provider Obstetrics & Gynecology Reproductive Endocrinology
DX: E28.9 Ovarian dysfunction, unspecified (principal)
CPT/HCPCS: 36415; 82670; 83002; 84144

== ENCOUNTER → 2020-07-28 10:56 | Outpatient (CLI) | payer BC, SELFPAY ==
[2020-05-19 08:42] VITALS: BMI 30.2
[2020-07-28 11:45] LABS: Progesterone Level 0.88 ng/mL (See Comment)
[2020-07-28 11:49] LABS: hCG Titer Quant., Serum < 1 mIU/mL (1-3)
[2020-07-28 15:44] LABS: Estradiol 56.5 pg/mL; Follicle Stimulating Hormone 3.9 mIU/mL; Thyroid Stim Hormone (TSH) 1.94 uIU/mL (0.358-3.74)
== END ==
PROVIDERS: PCP Physician Assistant; Visit Provider Obstetrics & Gynecology Reproductive Endocrinology
DX: E28.9 Ovarian dysfunction, unspecified (principal)
CPT/HCPCS: 36415; 82670; 83001; 83002; 84144; 84443; 84702

== ENCOUNTER → 2020-08-05 09:24 | Outpatient (CLI) | payer BC, SELFPAY ==
[2020-05-19 08:42] VITALS: BMI 30.2
[2020-08-05 11:16] LABS: Estradiol 124.1 pg/mL
[2020-08-05 11:21] LABS: Progesterone Level < 0.21 ng/mL (See Comment)
== END ==
PROVIDERS: PCP Physician Assistant; Visit Provider Obstetrics & Gynecology Reproductive Endocrinology
DX: E28.9 Ovarian dysfunction, unspecified (principal)
CPT/HCPCS: 36415; 82670; 83002; 84144

== ENCOUNTER → 2020-08-17 10:31 | Outpatient (CLI) | payer BC, SELFPAY ==
[2020-05-19 08:42] VITALS: BMI 30.2
[2020-08-17 11:15] LABS: Estradiol 206.1 pg/mL
[2020-08-17 11:19] LABS: Progesterone Level 25.54 ng/mL (See Comment)
== END ==
PROVIDERS: PCP Physician Assistant; Visit Provider Obstetrics & Gynecology Reproductive Endocrinology
DX: E28.9 Ovarian dysfunction, unspecified (principal)
CPT/HCPCS: 36415; 82670; 84144

== ENCOUNTER → 2020-08-22 08:56 | Outpatient (CLI) | payer BC, SELFPAY ==
[2020-05-19 08:42] VITALS: BMI 30.2
[2020-08-22 10:07] LABS: Progesterone Level 23.23 ng/mL (See Comment)
[2020-08-22 10:09] LABS: hCG Titer Quant., Serum < 1 mIU/mL (1-3)
== END ==
PROVIDERS: PCP Physician Assistant; Visit Provider Obstetrics & Gynecology Reproductive Endocrinology
DX: Z32.00 Encounter for pregnancy test, result unknown (principal)
CPT/HCPCS: 36415; 84144; 84702

== ENCOUNTER → 2020-08-29 08:51 | Outpatient (CLI) | payer BC, SELFPAY ==
[2020-05-19 08:42] VITALS: BMI 30.2
[2020-08-29 09:50] LABS: hCG Titer Quant., Serum < 1 mIU/mL (1-3)
[2020-08-29 10:00] LABS: Estradiol 49.3 pg/mL; Follicle Stimulating Hormone 5.5 mIU/mL; Luteinizing Hormone 8.5 mIU/mL; Thyroid Stim Hormone (TSH) 2.15 uIU/mL (0.358-3.74)
[2020-08-29 10:02] LABS: Progesterone Level 0.24 ng/mL (See Comment)
== END ==
PROVIDERS: PCP Physician Assistant; Visit Provider Obstetrics & Gynecology Reproductive Endocrinology
DX: E28.9 Ovarian dysfunction, unspecified (principal)
CPT/HCPCS: 36415; 82670; 83001; 83002; 84144; 84443; 84702

== ENCOUNTER → 2020-09-05 08:53 | Outpatient (CLI) | payer BC, SELFPAY ==
[2020-05-19 08:42] VITALS: BMI 30.2
[2020-09-05 09:49] LABS: Estradiol 244.1 pg/mL; Luteinizing Hormone 11.9 mIU/mL
[2020-09-05 10:29] LABS: Progesterone Level < 0.21 ng/mL (See Comment)
== END ==
PROVIDERS: PCP Physician Assistant; Visit Provider Obstetrics & Gynecology Reproductive Endocrinology
DX: E28.9 Ovarian dysfunction, unspecified (principal)
CPT/HCPCS: 36415; 82670; 83002; 84144

== ENCOUNTER → 2020-09-19 10:06 | Outpatient (CLI) | payer BC, SELFPAY ==
[2020-05-19 08:42] VITALS: BMI 30.2
[2020-09-19 10:39] LABS: Estradiol 237.3 pg/mL
[2020-09-19 10:42] LABS: Progesterone Level 30.85 ng/mL (See Comment)
== END ==
PROVIDERS: PCP Physician Assistant; Visit Provider Obstetrics & Gynecology Reproductive Endocrinology
DX: E28.9 Ovarian dysfunction, unspecified (principal)
CPT/HCPCS: 36415; 82670; 84144

== ENCOUNTER → 2020-09-23 09:29 | Outpatient (CLI) | payer BC, SELFPAY ==
[2020-05-19 08:42] VITALS: BMI 30.2
[2020-09-23 10:08] LABS: hCG Titer Quant., Serum 13 mIU/mL (1-3)
[2020-09-23 10:17] LABS: Progesterone Level 25.69 ng/mL (See Comment)
== END ==
PROVIDERS: PCP Physician Assistant; Visit Provider Obstetrics & Gynecology Reproductive Endocrinology
DX: Z32.00 Encounter for pregnancy test, result unknown (principal)
CPT/HCPCS: 36415; 84144; 84702

== ENCOUNTER → 2020-09-26 08:54 | Outpatient (CLI) | payer BC, SELFPAY ==
[2020-05-19 08:42] VITALS: BMI 30.2
[2020-09-26 09:31] LABS: Estradiol 260.9 pg/mL; Thyroid Stim Hormone (TSH) 2.86 uIU/mL (0.358-3.74)
[2020-09-26 09:36] LABS: hCG Titer Quant., Serum 24 mIU/mL (1-3)
[2020-09-26 09:38] LABS: Progesterone Level 36.37 ng/mL (See Comment)
== END ==
PROVIDERS: PCP Physician Assistant; Visit Provider Obstetrics & Gynecology Reproductive Endocrinology
DX: Z32.01 Encounter for pregnancy test, result positive (principal)
CPT/HCPCS: 36415; 82670; 84144; 84443; 84702

== ENCOUNTER → 2020-09-28 09:36 | Outpatient (CLI) | payer BC, SELFPAY ==
[2020-05-19 08:42] VITALS: BMI 30.2
[2020-09-28 10:48] LABS: Estradiol 317.8 pg/mL
[2020-09-28 10:51] LABS: Progesterone Level 28.74 ng/mL (See Comment)
[2020-09-28 10:58] LABS: hCG Titer Quant., Serum 60 mIU/mL (1-3)
== END ==
PROVIDERS: PCP Physician Assistant; Visit Provider Obstetrics & Gynecology Reproductive Endocrinology
DX: O02.81 Inappropriate change in quantitative human chorionic gonadotropin (hCG) in early pregnancy (principal); Z3A.00 Weeks of gestation of pregnancy not specified
CPT/HCPCS: 36415; 82670; 84144; 84702

== ENCOUNTER → 2020-09-30 08:54 | Outpatient (CLI) | payer BC, SELFPAY ==
[2020-05-19 08:42] VITALS: BMI 30.2
[2020-09-30 09:36] LABS: Estradiol 255.9 pg/mL
[2020-09-30 09:37] LABS: Progesterone Level 33.56 ng/mL (See Comment)
[2020-09-30 09:50] LABS: hCG Titer Quant., Serum 94 mIU/mL (1-3)
== END ==
PROVIDERS: PCP Physician Assistant; Visit Provider Obstetrics & Gynecology Reproductive Endocrinology
DX: O09.00 Supervision of pregnancy with history of infertility, unspecified trimester (principal); Z3A.00 Weeks of gestation of pregnancy not specified
CPT/HCPCS: 36415; 82670; 84144; 84702

== ENCOUNTER → 2020-10-03 08:53 | Outpatient (CLI) | payer BC, SELFPAY ==
[2020-05-19 08:42] VITALS: BMI 30.2
[2020-10-03 09:58] LABS: hCG Titer Quant., Serum 222 mIU/mL (1-3)
[2020-10-03 10:06] LABS: Estradiol 348.9 pg/mL
[2020-10-03 10:11] LABS: Progesterone Level 28.05 ng/mL (See Comment)
== END ==
PROVIDERS: PCP Physician Assistant; Visit Provider Obstetrics & Gynecology Reproductive Endocrinology
DX: O09.00 Supervision of pregnancy with history of infertility, unspecified trimester (principal); Z3A.00 Weeks of gestation of pregnancy not specified
CPT/HCPCS: 36415; 82670; 84144; 84702

== ENCOUNTER → 2020-10-10 09:41 | Outpatient (CLI) | payer BC, SELFPAY ==
[2020-05-19 08:42] VITALS: BMI 30.2
[2020-10-10 10:49] LABS: Estradiol 422.1 pg/mL
[2020-10-10 10:54] LABS: Progesterone Level 31.84 ng/mL (See Comment)
[2020-10-10 11:12] LABS: hCG Titer Quant., Serum 1311 mIU/mL (1-3)
== END ==
PROVIDERS: PCP Physician Assistant; Visit Provider Obstetrics & Gynecology Reproductive Endocrinology
DX: O09.00 Supervision of pregnancy with history of infertility, unspecified trimester (principal); Z3A.00 Weeks of gestation of pregnancy not specified
CPT/HCPCS: 36415; 82670; 84144; 84702

== ENCOUNTER → 2020-10-17 11:10 | Outpatient (CLI) | payer BC, SELFPAY ==
[2020-05-19 08:42] VITALS: BMI 30.2
[2020-10-17 13:14] LABS: Estradiol 392.5 pg/mL
[2020-10-17 13:17] LABS: Progesterone Level 26.26 ng/mL (See Comment)
[2020-10-17 13:34] LABS: hCG Titer Quant., Serum 4739 mIU/mL (1-3)
== END ==
PROVIDERS: PCP Physician Assistant; Visit Provider Obstetrics & Gynecology Reproductive Endocrinology
DX: O09.00 Supervision of pregnancy with history of infertility, unspecified trimester (principal); Z3A.00 Weeks of gestation of pregnancy not specified
CPT/HCPCS: 36415; 82670; 84144; 84702

== ENCOUNTER → 2020-10-21 09:00 | Outpatient (CLI) | payer BC, SELFPAY ==
[2020-05-19 08:42] VITALS: BMI 30.2
[2020-10-21 10:19] LABS: Progesterone Level 31.04 ng/mL (See Comment)
[2020-10-21 10:32] LABS: hCG Titer Quant., Serum 7246 mIU/mL (1-3)
== END ==
PROVIDERS: PCP Physician Assistant; Visit Provider Obstetrics & Gynecology Reproductive Endocrinology
DX: O09.00 Supervision of pregnancy with history of infertility, unspecified trimester (principal); Z3A.00 Weeks of gestation of pregnancy not specified
CPT/HCPCS: 36415; 82670; 84144; 84702

== ENCOUNTER 2020-10-28 05:31 | Day surgery (SDC) | payer BC, SELFPAY ==
[2020-05-19 08:42] VITALS: BMI 30.2
[2020-10-28] VITALS (16 sets, daily range): BP systolic 76–121; BP diastolic 50–108; PULSE 36–95; RESP 12–16; TEMP 36.1–36.6; O2SAT 93–100
--- NOTE | 2020-10-28 | POC_PTH ---
PATIENT: KACI SHIRLEY [place]: [facility] [place] U[place][id number] AGE/SX: 25/F ROOM: RE10/28/[address]: Dr. Martínez Worrell MD : 1995 BED: DIS: 10/28/2020 SPEC #: [id number] RECD: 10/28/20 09:41 STATUS: JAIDA REAlejandra #: [id number] FERNANDO: 10/28/20 00:[address]: Martínez Worrell DEPT: SURGICAL PATHOLOGY RECD BY: Brendan Perez ENTERED: 10/28/20 09:41 SP TYPE: [facility] OTHR DR: SCHUYLER Diez Tissues: Product of conception, NOS Procedures: Surgery Specimen Level IV HEADER OPERATION: Suction dilation and curettage PRE-OP DIAGNOSIS: Missed TISSUE SUBMITTED: Products of conception (Anora) MICROSCOPIC DIAGNOSIS Products of conception: Fragments of decidua, weakly secretory endometrium and rare trophoblastic cells, consistent with products of conception. See comment. SJ:miranda 10/31/2020 COMMENT Well-formed chorionic villi are not seen. The entire specimen is submitted. Results of Anora studies will be reported separately as an addendum. Case has been reviewed in consultation with Dr. Almeida who concurs with the above diagnosis. IDC:AM MICROSCOPIC DESCRIPTION Slides are reviewed. GROSS DESCRIPTION Received fresh for Anora studies labeled with the patient's name is a specimen designated POC. The specimen consists of multiple irregular fragments of pink-red soft tissue that in aggregate measure 5 x 3 x 0.2 cm. A portion of tissue is submitted for Anora studies. The rest of the specimen is submitted in two cassettes. / ANJU:miranda 10/28/20 TC:5 CPT: 99607
[2020-10-28 06:18] LABS: Hematocrit 38.7 % (37-47); Hemoglobin 12.5 g/dL (12.0-15.0); Mean Corp Hgb Conc 32.3 g/dL (32-36); Mean Corpuscular Hgb 29.3 pg (27.0-32.0); Mean Corpuscular Volume 90.8 fL (81-99); Mean Platelet Vol. 9.7 fl (6.2-12.0); Platelet Count 340 K/mm3 (150-450); RBC Distribution Width CV 12.3 % (11.6-14.6); RBC Distribution Width SD 40.6 fl (35.1-43.9); Red Blood Count 4.26 M/mm3 (4.2-5.4)
[2020-10-28] MEDS: Lactated Ringers 1,000 ML 120 ML IV (06:24)
--- NOTE | 2020-10-28 07:15 | HP.PCM.OB_ITS ---
HPI - General HPI Narrative KACI SHIRLEY, is a 25 F G1, P0 at 5 weeks and 5 days with missed . Patient with light spotting in the past few days and cramping. Otherwise asymptomatic. Patient denies headache, chest pain, shortness of breath, nausea vomiting, right upper quadrant pain. Obstetric history: G1 current, status post 2 embryo IVF transfer on 09/13/2020 Past medical history: Infertility, PCOS Past surgical history: ET tubes x7, ankle surgery, diagnostic laparoscopy peritoneal biopsies ovarian drilling Allergies: Amoxicillin, Dermabond Social history: Denies a history of smoking, alcohol use, drug use Family history: Denies a history of DVT or PE Review of systems: Besides above pertinent positives a full review of systems was performed found to be negative Physical exam: General: Normal-appearing no acute distress HEENT: Normocephalic atraumatic no cervical of adenopathy Cardiac/respiratory: Nonlabored breathing, no use of accessory muscles Abdomen: Soft, nontender, obese Extremities: No peripheral edema normal peripheral pulses Psych: Normal affect normal demeanor nonpressured speech [facility] Medical History (Updated 10/28/20 @ 07:[address] Martínez Worrell MD) Heartburn Hypothyroidism PCOS (polycystic ovarian syndrome) Wears contact lenses Wears glasses Home Medications metformin 500 mg PO BID 09/08/19 [History Last Taken Unknown] levothyroxine 25 mcg PO DAILY 10/27/20 [History Last Taken 10/28/20 04:30 25 mcg] prednisone 5 mg PO 10/27/20 [History Last Taken Unknown] Allergy/AdvReac Type Severity Reaction Status Date / Time amoxicillin Allergy Hives Verified 10/27/20 10:15 dermabond Allergy Swelling Uncoded 10/27/20 10:15 Surgical History (Updated 10/27/20 @ 10:29 by Leslye Garza) History of abdominal surgery Hx of colonoscopy Hx of pelvic surgery Social History Smoking Status: Never smoker Vital Signs Vital Signs Vital Signs: 10/28/20 06:11 Temperature 97.3 F L Temperature Source Temporal Pulse Rate 75 Respiratory Rate 14 Respiratory Pattern Normal Blood Pressure 118/78 Blood Pressure Mean 91 Blood Pressure Position Semi-Fowlers Blood Pressure Location Right Arm Pulse Ox 95 Oxygen Delivery Method Room Air Assessment & Plan Assessment/Plan (1) Missed : Status: Acute Code(s): O02.1 - Missed Plan: 25 yo G1, P0 5 weeks and 5 days with missed . Educated on treatment plans including expectant management versus medical management versus D&C. Risk benefits alternatives discussed and patient elects for suction dilation curettage. Desires genetic screening. Will repeat hCG today. 20 mg of IV doxycycline.
[2020-10-28 08:05] LABS: hCG Titer Quant., Serum 1538 mIU/mL (1-3)
--- NOTE | 2020-10-28 08:25 | PCM.DC ---
Discharge Instructions Outpatient Procedure Reason For Visit: SUCTION D&C Diet Discharge Diet: No restrictions Activity Discharge Activity: Return to Normal Activity, May Drive and May Shower May resume sexual activity in: 4-6 weeks Weight Bearing Status: Weight bearing as tolerated Dressing / Incision Call your doctor if your incision/area has: Continuous Slow Oozing, Increased Pain/ Swelling and Foul Smelling Discharge Call your doctor if you observe: Fever of 101 or Higher, Shortness of breath and Chest pain Follow Up Care Please Follow Up With: Martínez Worrell MD When: 2 weeks Test Results: Test results from this visit will be discussed in further detail at your follow-up appointment, if applicable. Discharge Plan Admission Attending Provider: Martínez Worrell Primary Care Provider: Ericka Gresham Discharge Orders/Prescriptions Prescriptions: No Action metformin 500 MG tablet 500 mg PO BID RF: 0 prednisone 5 mg tablet 5 mg PO RF: 0 levothyroxine 25 mcg Tablet 25 mcg PO DAILY RF: 0 Referrals: Ericka Gresham PA [Primary Care Provider] - Disposition Discharge Orders: Discharge Patient (Routine); Ordered 10/28/20 Ordered By: Dr. Martínez Worrell
--- NOTE | 2020-10-28 08:31 | OP.PCM_ITS ---
Report of Operation Date of Procedure: 10/28/20 Pre-Operative Diagnosis: Missed Post-Operative Diagnosis: Missed Surgery/Procedure Performed:: Suction Dilation and Curettage Description of Surgical Findings:: Surgeon: Martínez Worrell MD Anesthesia: MAC EBL: 25cc UOP: not measured IVF: 750cc Complications: none Specimen: Products of conception Findings: Cervix closed. Minimal to moderate products of conception. Hemostatic postprocedure Consent: Patient diagnosed with Missed in need of suction dilation and curettage. Patient understands the risk of the procedure include but are not limited to visceral or vascular injury, blood loss and need for transfusion, reoperation. Patient states understanding and wishes to proceed. Patient educated on genetic testing of tissue, risk/benefits/alternatives. Pt elects for genetic screening, collected today. Procedure: Patient was brought back to the OR where MAC anesthesia was found to be adequate. 200mg IV Doxycycline given for infection prophylaxis. Patient was prepared and draped in a dorsal lithotomy position with yellowfin stir ups. A weighted speculum was placed in the posterior aspect of the vagina and cervical dilators were used to dilate the cervix. 7mm curved suction curettage used and above findings were noted. Tissue to be sent to pathology and for genetic testing. Good hemostasis was noted. All counts were correct x2. Patient was brought to recovery in a stable condition. television announcer: Chelsey
[2020-10-28] MEDS: Lactated Ringers 1,000 ML 100 ML IV (08:36)
[2020-10-28] MEDS: Ketorolac 30 MG/ML Syringe IV (08:39)
[2020-10-28 09:37] LABS: ANORA MAILED SPECIMEN
[2020-10-28] MEDS: Acetaminophen 500 MG Tablet 1000 MG PO (09:58)
[2020-11-01 09:51] LABS: Pathology Specimen OB SEE PATHOLOGY REPORT
== END 2020-10-28 10:40 ==
LOC: SDC 05:32 → AC 05:33
PROVIDERS: PCP Physician Assistant; Referring Provider Obstetrics & Gynecology; Visit Provider Obstetrics & Gynecology
PROC: (CPT 59820; principal; 2020-10-28 07:15)
DX: O02.1 Missed abortion (principal); E28.2 Polycystic ovarian syndrome; Z3A.01 Less than 8 weeks gestation of pregnancy; Z79.52 Long term (current) use of systemic steroids; Z79.84 Long term (current) use of oral hypoglycemic drugs; Z88.0 Allergy status to penicillin
CPT/HCPCS: 59820; 84702; 85027; 86850; 86900; 86901; 87426; 88305; J7120

== ENCOUNTER → 2020-11-08 08:49 | Outpatient (CLI) | payer BC, SELFPAY ==
[2020-11-08 09:51] LABS: hCG Titer Quant., Serum 12 mIU/mL (1-3)
[2020-11-13 07:50] LABS: Anti-Mullerian Hormone,Serum 14.3 ng/mL (.)
== END ==
PROVIDERS: PCP Physician Assistant; Visit Provider Obstetrics & Gynecology Reproductive Endocrinology
DX: O02.1 Missed abortion (principal)
CPT/HCPCS: 36415; 83516; 84702

== ENCOUNTER → 2020-11-15 08:49 | Outpatient (CLI) | payer BC, SELFPAY ==
[2020-11-15 10:05] LABS: hCG Titer Quant., Serum 2 mIU/mL (1-3)
== END ==
PROVIDERS: PCP Physician Assistant; Visit Provider Obstetrics & Gynecology Reproductive Endocrinology
DX: O02.81 Inappropriate change in quantitative human chorionic gonadotropin (hCG) in early pregnancy (principal); Z3A.00 Weeks of gestation of pregnancy not specified
CPT/HCPCS: 36415; 84702

== ENCOUNTER → 2021-01-04 11:39 | Outpatient (CLI) | payer BC, SELFPAY ==
--- NOTE | 2021-01-04 11:50 | RAD_ITS ---
STUDY: HYSTEROSALPINGOGRAM. REASON FOR EXAM: Female, 25 years old. INFERTILITY FLUOROSCOPY TIME (if supplied): ( 4 seconds ) minutes/seconds. 2 images were obtained. TECHNIQUE: A hysterosalpingogram was performed by the reconciliation manager. Imaging was provided. COMPARISON: None. FINDINGS: The uterus is unremarkable. The fallopian tubes are patent with free spill bilaterally. RAD/Salpingogram IMPRESSION: Normal hysterosalpingogram. Electronically Signed: Cb King MD at 12:56 EDT , Service support ,
== END ==
PROVIDERS: PCP Physician Assistant; Referring Provider Obstetrics & Gynecology; Visit Provider Obstetrics & Gynecology
DX: N97.9 Female infertility, unspecified (principal)
CPT/HCPCS: 58340; 74740; Q9967

== ENCOUNTER → 2021-02-02 09:51 | Outpatient (CLI) | payer BC, SELFPAY ==
[2021-02-02 10:28] LABS: Estradiol 44.2 pg/mL; Follicle Stimulating Hormone 5.4 mIU/mL; Luteinizing Hormone 17.9 mIU/mL; Thyroid Stim Hormone (TSH) 1.93 uIU/mL (0.358-3.74)
[2021-02-02 10:33] LABS: hCG Titer Quant., Serum < 1 mIU/mL (1-3)
[2021-02-02 10:35] LABS: Progesterone Level 0.54 ng/mL (See Comment)
== END ==
PROVIDERS: PCP Physician Assistant; Visit Provider Obstetrics & Gynecology Reproductive Endocrinology
DX: E28.9 Ovarian dysfunction, unspecified (principal)
CPT/HCPCS: 36415; 82670; 83001; 83002; 84144; 84443; 84702

== ENCOUNTER → 2021-02-10 11:14 | Outpatient (CLI) | payer BC, SELFPAY ==
[2021-02-10 13:39] LABS: Estradiol 243.4 pg/mL; Luteinizing Hormone 24.8 mIU/mL; Progesterone Level 0.31 ng/mL (See Comment)
== END ==
PROVIDERS: PCP Physician Assistant; Visit Provider Obstetrics & Gynecology Reproductive Endocrinology
DX: E28.9 Ovarian dysfunction, unspecified (principal)
CPT/HCPCS: 36415; 82670; 83002; 84144

== ENCOUNTER → 2021-02-22 09:29 | Outpatient (CLI) | payer BC, SELFPAY ==
[2021-02-22 10:33] LABS: Estradiol 236.5 pg/mL; Progesterone Level 36.25 ng/mL (See Comment)
== END ==
PROVIDERS: PCP Physician Assistant; Visit Provider Obstetrics & Gynecology Reproductive Endocrinology
DX: Z31.49 Encounter for other procreative investigation and testing (principal)
CPT/HCPCS: 36415; 82670; 84144

== ENCOUNTER → 2021-02-27 09:10 | Outpatient (CLI) | payer BC, SELFPAY ==
[2021-02-27 10:22] LABS: hCG Titer Quant., Serum < 1 mIU/mL (1-3)
[2021-02-27 10:26] LABS: Progesterone Level 41.26 ng/mL (See Comment)
== END ==
PROVIDERS: PCP Physician Assistant; Visit Provider Obstetrics & Gynecology Reproductive Endocrinology
DX: Z32.00 Encounter for pregnancy test, result unknown (principal)
CPT/HCPCS: 36415; 84144; 84702

== ENCOUNTER → 2021-04-04 08:50 | Outpatient (CLI) | payer BC, SELFPAY ==
[2021-04-04 09:41] LABS: Progesterone Level 0.32 ng/mL (See Comment); hCG Titer Quant., Serum < 1 mIU/mL (1-3)
[2021-04-04 09:46] LABS: Estradiol 49.7 pg/mL; Follicle Stimulating Hormone 4.3 mIU/mL; Luteinizing Hormone 6.8 mIU/mL; Thyroid Stim Hormone (TSH) 2.83 uIU/mL (0.358-3.74)
== END ==
PROVIDERS: PCP Physician Assistant; Visit Provider Obstetrics & Gynecology Reproductive Endocrinology
DX: Z31.83 Encounter for assisted reproductive fertility procedure cycle (principal)
CPT/HCPCS: 36415; 82670; 83001; 83002; 84144; 84443; 84702

== ENCOUNTER → 2021-04-11 11:33 | Outpatient (CLI) | payer BC, SELFPAY ==
[2021-04-11 12:50] LABS: Estradiol 716.4 pg/mL; Luteinizing Hormone 7.1 mIU/mL
[2021-04-11 13:25] LABS: Progesterone Level < 0.21 ng/mL (See Comment)
== END ==
PROVIDERS: PCP Physician Assistant; Referring Provider Obstetrics & Gynecology Reproductive Endocrinology; Visit Provider Obstetrics & Gynecology Reproductive Endocrinology
DX: Z31.83 Encounter for assisted reproductive fertility procedure cycle (principal)
CPT/HCPCS: 36415; 82670; 83002; 84144

== ENCOUNTER → 2021-04-24 09:57 | Outpatient (CLI) | payer BC, SELFPAY ==
[2021-04-24 10:53] LABS: Estradiol 416.3 pg/mL
[2021-04-24 10:57] LABS: Progesterone Level 55.01 ng/mL (See Comment)
== END ==
PROVIDERS: PCP Physician Assistant; Visit Provider Obstetrics & Gynecology Reproductive Endocrinology
DX: Z31.49 Encounter for other procreative investigation and testing (principal)
CPT/HCPCS: 36415; 82670; 84144

== ENCOUNTER → 2021-04-28 08:47 | Outpatient (CLI) | payer BC, SELFPAY ==
[2021-04-28 09:31] LABS: hCG Titer Quant., Serum 204 mIU/mL (1-3)
[2021-04-28 10:34] LABS: Progesterone Level 55.37 ng/mL (See Comment)
== END ==
PROVIDERS: PCP Physician Assistant; Visit Provider Obstetrics & Gynecology Reproductive Endocrinology
DX: Z32.00 Encounter for pregnancy test, result unknown (principal)
CPT/HCPCS: 36415; 84144; 84702

== ENCOUNTER → 2021-05-01 09:10 | Outpatient (CLI) | payer BC, SELFPAY ==
[2021-05-01 10:12] LABS: Progesterone Level 46.99 ng/mL (See Comment); hCG Titer Quant., Serum 888 mIU/mL (1-3)
[2021-05-01 10:19] LABS: Estradiol 744.8 pg/mL; Thyroid Stim Hormone (TSH) 3.07 uIU/mL (0.358-3.74)
== END ==
PROVIDERS: PCP Physician Assistant; Visit Provider Obstetrics & Gynecology Reproductive Endocrinology
DX: Z32.01 Encounter for pregnancy test, result positive (principal)
CPT/HCPCS: 36415; 82670; 84144; 84443; 84702

== ENCOUNTER → 2021-05-08 10:39 | Outpatient (CLI) | payer BC, SELFPAY ==
[2021-05-08 11:43] LABS: Estradiol 545.8 pg/mL
[2021-05-08 11:44] LABS: Progesterone Level 55.82 ng/mL (See Comment)
[2021-05-08 11:58] LABS: hCG Titer Quant., Serum 8198 mIU/mL (1-3)
== END ==
PROVIDERS: PCP Physician Assistant; Visit Provider Obstetrics & Gynecology Reproductive Endocrinology
DX: O09.00 Supervision of pregnancy with history of infertility, unspecified trimester (principal); Z3A.00 Weeks of gestation of pregnancy not specified
CPT/HCPCS: 36415; 82670; 84144; 84702

== ENCOUNTER → 2021-05-15 09:38 | Outpatient (CLI) | payer BC, SELFPAY ==
[2021-05-15 10:26] LABS: Progesterone Level 41.98 ng/mL (See Comment)
[2021-05-15 10:30] LABS: Estradiol 673.2 pg/mL
[2021-05-15 10:44] LABS: hCG Titer Quant., Serum 38262 mIU/mL (1-3)
== END ==
PROVIDERS: PCP Physician Assistant; Visit Provider Obstetrics & Gynecology Reproductive Endocrinology
DX: O09.00 Supervision of pregnancy with history of infertility, unspecified trimester (principal); Z3A.00 Weeks of gestation of pregnancy not specified
CPT/HCPCS: 36415; 82670; 84144; 84702

== ENCOUNTER → 2021-05-29 16:09 | Outpatient (CLI) | payer BC, SELFPAY ==
[2021-05-29 16:48] LABS: Absolute Lymphocyte Count 2.33 X10^3/uL (0.83-4.51); Absolute Neutrophil Count 8.7 X10^3/uL (2.0-7.7); Basophil# 0.04 X10^3/uL; Basophil% 0.3 % (0-1); Eosinophil# 0.24 X10^3/uL; Hematocrit 38.5 % (37-47); Hemoglobin 13.4 g/dL (12.0-15.0); Lymphocyte # 2.33 X10^3/ul (0.83-4.51); Lymphocyte % 19.1 % (19-41); Mean Corp Hgb Conc 34.8 g/dL (32-36); Mean Corpuscular Hgb 29.8 pg (27.0-32.0); Mean Corpuscular Volume 85.6 fL (81-99); Mean Platelet Vol. 10.2 fl (6.2-12.0); Monocyte# 0.83 X10^3/uL; Monocyte% 6.8 % (0-10); NRBC Flagged by Analyzer 0 % (0-5); Neutrophil % 71.4 % (47-70); Platelet Count 404 K/mm3 (150-450); RBC Distribution Width CV 12.5 % (11.6-14.6); White Blood Count 12.2 K/mm3 (4.4-11.0)
[2021-05-29 17:21] LABS: T4 Free Direct 1.14 ng/dL (0.76-1.46); Thyroid Stim Hormone (TSH) 0.98 uIU/mL (0.358-3.74)
[2021-05-30 08:57] LABS: HIV - WCH Non-Reactive (Nonreactive); Hepatitis B Surface Antigen Non-Reactive (Nonreactive); Hepatitis C Antibody Non-Reactive (Nonreactive); Rubella IgG Reactive (Nonreactive); Syphilis Antibodies Non-reactive
[2021-06-01 05:07] LABS: Chlamydia By Nucleic Acid AMP Negative (Negative)
[2021-06-01 12:46] LABS: HPV Reflexed? NOT INDICATED
[2021-06-01 14:14] LABS: Gonococcus By Nucleic Acid AMP Negative (Negative)
== END ==
PROVIDERS: PCP Physician Assistant; Visit Provider Obstetrics & Gynecology
DX: O99.281 Endocrine, nutritional and metabolic diseases complicating pregnancy, first trimester (principal); Z3A.00 Weeks of gestation of pregnancy not specified; E03.9 Hypothyroidism, unspecified; Z12.4 Encounter for screening for malignant neoplasm of cervix; Z11.3 Encounter for screening for infections with a predominantly sexual mode of transmission
CPT/HCPCS: 36415; 84439; 84443; 85025; 86703; 86762; 86780; 86803; 87086; 87088; 87340; 87491; 87591; 88175; G0145

== ENCOUNTER 2021-09-25 10:03 | Outpatient (CLI) | payer BC, SELFPAY ==
[2021-09-25 12:58] LABS: Hematocrit 33.5 % (37-47); Hemoglobin 11.4 g/dL (12.0-15.0); Mean Corpuscular Hgb 29.3 pg (27.0-32.0); Mean Corpuscular Volume 86.1 fL (81-99); Mean Platelet Vol. 12.6 fl (6.2-12.0); Platelet Count 237 K/mm3 (150-450); RBC Distribution Width CV 13.5 % (11.6-14.6); RBC Distribution Width SD 42.2 fl (35.1-43.9); Red Blood Count 3.89 M/mm3 (4.2-5.4); White Blood Count 13.4 K/mm3 (4.4-11.0)
[2021-09-25 13:05] LABS: Glucose Challenge Gest 1H 50g 91 mg/dL (70-140)
== END 2021-09-25 23:59 | disposition home or self-care (01) ==
PROVIDERS: PCP Physician Assistant; Referring Provider Obstetrics & Gynecology; Visit Provider Obstetrics & Gynecology
DX: Z34.82 Encounter for supervision of other normal pregnancy, second trimester (principal)
CPT/HCPCS: 36415; 82950; 85027

== ENCOUNTER 2021-10-03 06:36 | Outpatient (CLI) | payer BC, SELFPAY ==
[2021-10-03 06:54] VITALS: TEMP 36.8
[2021-10-03 06:55] VITALS: BP 111/69; PULSE 106
[2021-10-03 07:31] VITALS: BMI 36.2
[2021-10-03] MEDS: Lactated Ringers 1,000 ML 999 ML IV (07:33)
[2021-10-03] MEDS: Ondansetron 4 MG/2 ML Vial IV (07:38)
[2021-10-03 07:57] LABS: Absolute Neutrophil Count 13.6 X10^3/uL (2.0-7.7); Basophil# 0.05 X10^3/uL; Basophil% 0.3 % (0-1); Eosinophil# 0.03 X10^3/uL; Eosinophils% 0.2 % (0-5); Hematocrit 37.6 % (37-47); Hemoglobin 12.8 g/dL (12.0-15.0); Lymphocyte % 3.9 % (19-41); Mean Corpuscular Hgb 29.6 pg (27.0-32.0); Mean Corpuscular Volume 86.8 fL (81-99); Mean Platelet Vol. 11.3 fl (6.2-12.0); Monocyte% 5.3 % (0-10); NRBC Flagged by Analyzer 0 % (0-5); Neutrophil # 13.61 X10^3/uL (2.7-7.7); Neutrophil % 89.4 % (47-70); POSITIVE DIFFERENTIAL YES; Platelet Count 273 K/mm3 (150-450); RBC Distribution Width CV 13.2 % (11.6-14.6); RBC Distribution Width SD 41.7 fl (35.1-43.9); Red Blood Count 4.33 M/mm3 (4.2-5.4); White Blood Count 15.2 K/mm3 (4.4-11.0)
[2021-10-03 07:59] LABS: Differential Indicated SCAN CRITERIA MET
[2021-10-03 08:01] VITALS: PULSE 99; O2SAT 99
[2021-10-03 08:43] LABS: ALB/GLOB Ratio 0.7 RATIO (0.9-2.4); AST(SGOT) 17 U/L (15-37); Alanine Aminotransfer ALT/SGPT 20 U/L (13-56); Albumin, Serum 2.8 g/dL (3.2-5.0); Alkaline Phosphatase 85 U/L (45-117); Anion Gap 8 (5-15); BUN 13 mg/dL (7-18); BUN/Creat Ratio 17.5 RATIO (10-20); Calcium,Total 8.4 mg/dL (8.5-10.1); Chloride 107 mmol/L (98-107); Creatinine, Serum 0.74 mg/dL (0.55-1.02); EST Glomerular Filtration Rate 99 mL/min (>60); Est Glom Filt Rate - Afr Amer 120 mL/min (>60); Estimated Creatinine Clearance 122.39 ml/min; Globulin 4.2 g/dL (2.2-4.2); Glucose 95 mg/dL (74-106); Potassium 3.7 mmol/L (3.5-5.1); Sodium Level 137 mmol/L (136-145)
[2021-10-03 10:35] LABS: Fetal Fibronectin Negative
--- NOTE | 2021-10-05 10:12 | PCM.PN.BLA ---
Progress Note Patient arrived with nausea, vomiting, abdominal cramping at approximately 26 weeks. Given IV fluid bolus, CBC and CMP completed, Zofran 4 mg IV x1 ordered by myself on admission to triage. The rest of the triage visit was completed by Dr. Nessa Castellon who discharged the patient.
== END 2021-10-03 23:59 | disposition home or self-care (01) ==
LOC: WPOUT 06:44 → WP 06:45
PROVIDERS: Obstetrics & Gynecology; PCP Physician Assistant; Referring Provider Student in an Organized Health Care Education/Training Program; Visit Provider Student in an Organized Health Care Education/Training Program
DX: O21.2 Late vomiting of pregnancy (principal); Z3A.26 26 weeks gestation of pregnancy
CPT/HCPCS: 96374; 96361; 59050; 80053; 82731; 85025; 99218; J7120; G0378; J2405

== ENCOUNTER → 2021-12-08 | Outpatient (CLI) | payer BC, SELFPAY | END | disposition home or self-care (01) | LOC: LABSPEC 11:58 | PROVIDERS: PCP Physician Assistant; Visit Provider Obstetrics & Gynecology | DX: Z36.85 Encounter for antenatal screening for Streptococcus B (principal) | CPT/HCPCS: 87081 ==

== ENCOUNTER 2021-12-28 07:00 | Inpatient (IN) | payer BC, SELFPAY ==
[2021-12-28] VITALS (46 sets, daily range): BP systolic 102–140; BP diastolic 58–96; PULSE 74–105; TEMP 36.1–36.8; O2SAT 83–100; BMI 38.2
[2021-12-28] MEDS: Lactated Ringers 1,000 ML 50 ML IV (07:45)
[2021-12-28 08:02] LABS: Absolute Lymphocyte Count 2.33 X10^3/uL (0.83-4.51); Absolute Neutrophil Count 7.5 X10^3/uL (2.0-7.7); Basophil# 0.06 X10^3/uL; Basophil% 0.5 % (0-1); Eosinophil# 0.35 X10^3/uL; Eosinophils% 3.2 % (0-5); Hematocrit 33.2 % (37-47); Hemoglobin 10.4 g/dL (12.0-15.0); Lymphocyte # 2.33 X10^3/ul (0.83-4.51); Lymphocyte % 21.2 % (19-41); Mean Corp Hgb Conc 31.3 g/dL (32-36); Mean Corpuscular Hgb 25.1 pg (27.0-32.0); Mean Corpuscular Volume 80.2 fL (81-99); Mean Platelet Vol. 12.2 fl (6.2-12.0); Monocyte# 0.69 X10^3/uL; Monocyte% 6.3 % (0-10); NRBC Flagged by Analyzer 0 % (0-5); Neutrophil # 7.45 X10^3/uL (2.7-7.7); Neutrophil % 67.6 % (47-70); Platelet Count 214 K/mm3 (150-450); RBC Distribution Width CV 13.8 % (11.6-14.6); RBC Distribution Width SD 39.8 fl (35.1-43.9); Red Blood Count 4.14 M/mm3 (4.2-5.4)
[2021-12-28] MEDS: miSOPROStol 25 MCG TABLET VAGINAL (08:34)
--- NOTE | 2021-12-28 08:55 | HP.PCM.OB_ITS ---
HPI - General General Date of Admission: 12/28/21 Date of Service: 12/28/21 Chief Complaint: induction of labor HPI Narrative KACI SHIRLEY, is a 26 F who presents at 39 wga (EMANI 01/04/22 by IVF dating) for induction of labor. She has no complaints and feels well today. [facility] Medical History (Updated 12/28/21 @ 09:[address] Traci Castellon MD) Dysmenorrhea Heartburn Hypothyroidism Infertility Infertility PCOS (polycystic ovarian syndrome) Wears contact lenses Wears glasses Home Medications famotidine 40 mg tablet 40 mg PO BID heartburn 12/28/21 [History Last Taken 12/28/21 05:45 40 mg] [id number] 1 mg tablet 1 tab PO DAILY 12/28/21 [History Last Taken 12/27/21 06:00 1 tab] Allergy/AdvReac Type Severity Reaction Status Date / Time amoxicillin Allergy Hives Verified 12/28/21 07:35 dermabond Allergy Swelling Uncoded 12/28/21 07:35 Surgical History History of abdominal surgery History of surgery Hx of colonoscopy Hx of pelvic surgery Social History Smoking Status: Never smoker History 2 Elective abortions Hx Para 0 Spontaneous abortions Hx # Term Pregnancies Ectopic pregnancies Hx # Pregnancies Multiple births # of living children Past Pregnancies Del. Date Name GA/Weeks Outcome Route Bth Weight Gen Labor Lgth Anesthesia Del Locatn Provider FOB Unknown 7 spontaneous [place] NST FHR Rate Baby A Baseline: 130 Variability:: Moderate Accelerations:: 15 x 15 Decelerations:: None NST Reactive:: Yes FHR Category:: Category I Uterine Activity:: /10 with irritability intermittently Vital Signs Vital Signs Vital Signs: 12/28/21 07:25 12/28/21 07:25 12/28/21 07:26 Temperature 97.0 F L Temperature Source Pulse Rate 95 Blood Pressure 139/96 H BP Systolic 139 BP Diastolic 96 Pulse Ox 12/28/21 07:26 12/28/21 07:49 12/28/21 07:49 Temperature Temperature Source Temporal Pulse Rate 102 H Blood Pressure 132/85 H BP Systolic 132 BP Diastolic 85 Pulse Ox 12/28/21 08:27 12/28/21 08:27 12/28/21 08:32 Temperature Temperature Source Pulse Rate 89 102 H Blood Pressure BP Systolic BP Diastolic Pulse Ox 98 12/28/21 08:32 12/28/21 08:48 12/28/21 08:48 Temperature Temperature Source Pulse Rate 94 Blood Pressure 127/75 H BP Systolic 127 BP Diastolic 75 Pulse Ox 98 12/28/21 08:48 12/28/21 08:48 Temperature 97.5 F L Temperature Source Temporal Pulse Rate Blood Pressure BP Systolic BP Diastolic Pulse Ox Weight Weight: 121 kg Body Mass Index (BMI) 38.2 Labs Labs Labs: Blood Type O POSITIVE Antibody Screen NEGATIVE Hct 33.2 % (37-47) L Hgb 10.4 g/dL (12.0-15.0) L Syphilis Total Ab Non-reactive Rubella IgG Antibody Reactive (Nonreactive) Hep Bs Antigen Non-Reactive (Nonreactive) Chlamydia DNA (JA) Negative (Negative) Neisseria gonorrhoeae DNA (JA) Negative (Negative) HIV 1&2 Antibody Non-Reactive (Nonreactive) Glucose 1 Hr 50 gm 91 mg/dL (70-140) Assessment & Plan (1) 39 weeks gestation of : PLAN: IOL indications, risks, benefits and alternatives reviewed. Misoprostol for ripening GBS neg
[2021-12-28] MEDS: LACTATED RINGERS 500 ML 999 ML IV ×2 (13:07→19:54)
--- NOTE | 2021-12-28 17:20 | PCM.PN.BLA ---
Progress Note c/o painful contractions with painfulness in the back Physical Exam Narrative GEN - AAO x 3, breathing heavily through contractions FHR 120, moderate variability, + accelerations, no decelerations TOCO 4/10 SVE 1/70/-4, moderate and midposition Assessment & Plan Assessment/Plan (1) 39 weeks gestation of : PLAN: Cat I FHR Discussed hills bulb, also offered therapeutic rest Pt opts for hills bulb - placed wiht 30 cc saline Pain management prn Continue nitrous oxide in the interim
[2021-12-28] MEDS: 0.9% Normal Saline Single 100 ML IV.SOLN. INTRA-UTER (17:21)
[2021-12-28] MEDS: Acetaminophen 500 MG Tablet PO (18:05)
[2021-12-28] MEDS: fentaNYL-bupivacaine (epidural) 100 ML BAG EPIDURAL (21:10)
[2021-12-28] MEDS: Lactated Ringers 1,000 ML 200 ML IV (22:04)
[2021-12-28] MEDS: Mag Hydrox/Al Hydrox/Simeth 30 ML UDC PO (22:05)
[2021-12-28] MEDS: Oxytocin 30 units/NS 500 ml 30 UNITS/500 ML IV.SOLN IV (22:10)
[2021-12-29] VITALS (49 sets, daily range): BP systolic 92–175; BP diastolic 58–124; PULSE 75–228; TEMP 36.2–37.3; O2SAT 81–100
[2021-12-29] MEDS: fentaNYL-bupivacaine (epidural) 100 ML BAG EPIDURAL ×5 (01:45→21:28)
[2021-12-29] MEDS: Lactated Ringers 1,000 ML 200 ML IV ×4 (01:46→17:10)
[2021-12-29] MEDS: Ondansetron 4 MG/2 ML Vial IV ×3 (07:35→19:35)
--- NOTE | 2021-12-29 08:58 | PCM.PN.BLA ---
Progress Note No complaints. Comfortable with epidural. Physical Exam Narrative GEN - NAD, AAO x 3 FHR 135, moderate variability, + accelerations, no decelerations TOCO 2/10 min SVE 4/70/-3, moderate and midposition Assessment & Plan Assessment/Plan (1) 39 weeks gestation of : PLAN: Plan Cat I FHR Amniotomy performed with clear fluid. IUPC, ISE placed Continue pitocin as tolerated by mother and fetus
[2021-12-29] MEDS: Mag Hydrox/Al Hydrox/Simeth 30 ML UDC PO (12:14)
[2021-12-29] MEDS: 0.9% Saline Lock 10 ML Syringe IV ×2 (17:15→19:36)
--- NOTE | 2021-12-29 18:32 | PCM.PN.OB ---
Subjective Subjective No complaints. Objective Data Objective Data Vital Signs: Vital Signs Temp Pulse BP Pulse Ox 98.3 F 98 133/85 H 98 12/29/21 16:44 12/29/21 18:20 12/29/21 18:20 12/29/21 18:20 Weight: 121 kg Body Mass Index (BMI) 38.2 Intake & Output: Intake and Output for Last 24 Hours 12/27/21 12/28/21 12/29/21 23:59 23:59 23:59 Intake Total 2715.83 / 2715.83 5390.96 / 5390.96 Output Total 700 / 700 3950 / 3950 Balance / 1440.96 / 1440.96 Lab / Micro Data Result Diagrams: 12/28/21 07:45 Micro: Microbiology 12/28/21 07:40 Nasal Secretion SARS-CoV-2 Antigen (Rapid) - Final Physical Exam Narrative GEN - NAD, AAO x 3 FHR 130, moderate variability, + accelerations, no decelerations TOCO 4/10 min SVE deferred, recent RN exam /-3 Assessment & Plan (1) 39 weeks gestation of : PLAN: Cat I FHR Continue pitocin as tolerated by mother and fetus
--- NOTE | 2021-12-29 20:33 | PCM.PN.OB ---
Subjective Subjective She is more uncomfortable with contractions. Epidural redosing provided some relief. Objective Data Objective Data Vital Signs: Vital Signs Temp Pulse BP Pulse Ox 99.1 F 90 122/66 H 81 12/29/21 19:37 12/29/21 20:02 12/29/21 20:02 12/29/21 20:03 Weight: 121 kg Body Mass Index (BMI) 38.2 Intake & Output: Intake and Output for Last 24 Hours 12/27/21 12/28/21 12/29/21 23:59 23:59 23:59 Intake Total 2715.83 / 2715.83 5404.56 / 5404.56 Output Total 700 / 700 3950 / 3950 Balance / 1454.56 / 1454.56 Lab / Micro Data Result Diagrams: 12/28/21 07:45 Micro: Microbiology 12/28/21 07:40 Nasal Secretion SARS-CoV-2 Antigen (Rapid) - Final Physical Exam Narrative GEN - NAD, AAO x 3 FHR 145, minimal variability, + accelerations, no decelerations TOCO 4/10 min SVE FD/100/+1 Assessment & Plan (1) 39 weeks gestation of : PLAN: Cat II FHR with acceleration Labor down for 30 minutes then start pushing Maternal and statuses reassuring
[2021-12-29] MEDS: Oxytocin 30 units/NS 500 ml 30 UNITS/500 ML IV.SOLN 334 UNITS IV (22:59)
[2021-12-29] MEDS: Methylergonovine 0.2 MG/ML Ampul IM (23:02)
[2021-12-29] MEDS: LACTATED RINGERS 500 ML 999 ML IV (23:41)
[2021-12-30] VITALS (44 sets, daily range): BP systolic 121–145; BP diastolic 58–89; PULSE 79–115; RESP 15–18; TEMP 36.1–37.4; O2SAT 93–100
[2021-12-30] MEDS: Ondansetron 4 MG/2 ML Vial IV (00:07)
--- NOTE | 2021-12-30 00:21 | EX.PCM.OBRPT ---
Assessment & Plan (1) (spontaneous vaginal delivery): (2) Laceration of cervix during delivery: PLAN: CBC pending Vaginal Delivery Maternal Presentation Maternal Presentation: Elective Induction Type of Induction: Pitocin, Al Bulb and Cytotec Operative Information Date of Procedure: 12/30/21 Pre-Operative Diagnosis: 1. 39 1/7 weeks gestation Post-Operative Diagnosis: 1. 39 1/7 weeks gestation Surgery / Procedure Performed: Spontaneous Vaginal Delivery Type of Anesthesia: Epidural Anesthesiologist: Paresh Orlando Drain: Al to straight drain Estimated Blood Loss: 1000 ml Time of Delivery: 22:27 Findings Description of Procedure: Patient was FD/+4 station. She pushed to deliver a female in OA. The infant was placed on the maternal abdomen and further attended by nursery personnel. The cord was doubly clamped and cut. Cord blood specimen was obtained. The placenta delivered spontaneously and appeared intact on inspection. There was initial uterine atony without hemorrhage and vigorous bimanual uterine massage was performed. Patient was given additional pitocin and IM Methergine. Clots were evacuated from the uterus with improvement of uterine tone and bleeding. Some bleeding persisted however and appeared to be from left sulcal vaginal laceration. The apex was sutured and the repair brought down to the perineum with 3-0 Vicryl Rapide however additional bleeding occurred. Uterine exam was again performed and cervical inspection demonstrated a cervical laceration at 6 o'clock. Assistance was called to assist with the repair. The apical cervix was friable, thus the laceration was repaired with 3-0 Vicryl distal to proximal with improved overall hemostasis however the suture sites seems to ooze. Compression was performed and tranexamic acid was administered. The vaginal repair was completed and the left labial laceration was also reapproximated. A right labial laceration was present however hemostatic thus reapproximation deferred. The vagina was subsequently packed for continued hemostasis. Total EBL 1000 mL. Sponge and needle counts were correct x 2. Presentation: Vertex Amniotic Fluid Description: Clear Placental Delivery Description: Spontaneous Placenta Disposition: [facility] Cord Vessel Description: 3 Vessels Cord Entanglement: None Infant A Gender: Female (1 minute): 8 (5 minute): 9 Delayed Cord Clamping: Yes Post Vaginal Delivery Medications Given After Delivery: IV Pitocin and IM Methergin Episiotomy Description: None Laceration: Vaginal Extension/lac, Cervical Extension/lac and 2nd degree Complication Complications: -
[2021-12-30 01:18] LABS: Hematocrit 32.6 % (37-47); Hemoglobin 10.5 g/dL (12.0-15.0); Mean Corp Hgb Conc 32.2 g/dL (32-36); Mean Corpuscular Hgb 25.6 pg (27.0-32.0); Mean Corpuscular Volume 79.5 fL (81-99); Mean Platelet Vol. 12.1 fl (6.2-12.0); Platelet Count 199 K/mm3 (150-450); RBC Distribution Width SD 39.9 fl (35.1-43.9); White Blood Count 21.1 K/mm3 (4.4-11.0)
[2021-12-30] MEDS: Ibuprofen 600 MG Tablet PO ×4 (02:04→23:20)
[2021-12-30] MEDS: Acetaminophen 500 MG Tablet 1000 MG PO ×3 (04:09→23:19)
--- NOTE | 2021-12-30 06:14 | NURSING ---
pt was using pacifier, this nurse educated pt. on nipple confusing and needing to try and wait 3-4 weeks until using a pacifier. Pt. verbalized understanding.
--- NOTE | 2021-12-30 07:19 | NURSING ---
Dr. Neymar Castellon at bedside to remove packing
--- NOTE | 2021-12-30 07:35 | PCM.PN.OB ---
Subjective Subjective Jelly is sore this morning and reports mild headache. Nausea and vomiting resolved. No vision changes or abdominal pain. Has some swelling. Infant latched well and she is nursing. Objective Data Objective Data Vital Signs: Vital Signs Temp Pulse Resp BP Pulse Ox O2 Del Method 97.1 F L 95 15 121/63 H 97 Room Air 12/30/21 04:05 12/30/21 04:16 12/30/21 04:05 12/30/21 04:16 12/30/21 04:05 12/30/21 04:05 Oxygen Delivery Method Room Air Weight: 121 kg Body Mass Index (BMI) 38.2 Intake & Output: Intake and Output for Last 24 Hours 12/28/21 12/29/21 12/30/21 23:59 23:59 23:59 Intake Total 2715.83 / 2715.83 6944.06 / 6944.06 610 / 610 Output Total 700 / 700 4350 / 4350 1500 / 1500 Balance / 2594.06 / 2594.06 -890 / -890 Lab / Micro Data Result Diagrams: 12/30/21 00:58 Labs: Laboratory Results - last 24 hr 12/29/21 23:45: WBC Cancelled, Corrected WBC Cancelled, RBC Cancelled, Hgb Cancelled, Hct Cancelled, MCV Cancelled, MCH Cancelled, MCHC Cancelled, RDW Std Deviation Cancelled, RDW Coeff of Regino Cancelled, Plt Count Cancelled, MPV Cancelled, Diff Path Review Cancelled 12/30/21 00:58: WBC 21.1 H, RBC 4.10 L, Hgb 10.5 L, Hct 32.6 L, MCV 79.5 L, MCH 25.6 L, MCHC 32.2, RDW Std Deviation 39.9, RDW Coeff of Regino 14.0, Plt Count 199, MPV 12.1 H Micro: Microbiology 12/28/21 07:40 Nasal Secretion SARS-CoV-2 Antigen (Rapid) - Final Physical Exam Const alert, oriented x3 and no apparent distress Resp normal respiratory effort, normal air movement and clear to auscultation bilaterally Cardio regular rate, regular rhythm, S1 normal heart sound and S2 normal heart sound GI normal to inspection, nondistended, normoactive bowel sounds, soft to palpation, non-tender and non-distended Narrative: Mild vulvar edema Manual OB Exam: other lochia scant Uterus Palpation: uterus fundus firm Extremity no calf tenderness Extremity Narrative: 1+ b/l LE edema Assessment & Plan (1) Laceration of cervix during delivery: COMMENT: sulcal tear and labial lacs PLAN: Vaginal packing removed this morning Al catheter removed Monitor bleeding (2) (spontaneous vaginal delivery): PLAN: Routine care O positive
[2021-12-30] MEDS: 0.9% Saline Lock 10 ML Syringe IV (16:16)
[2021-12-30] MEDS: Benzocaine/Lanolin/Aloe Vera 1 SPRAY EACH TOPICAL (16:17)
[2021-12-31] VITALS (8 sets, daily range): BP systolic 123–140; BP diastolic 72–95; PULSE 68–86; RESP 18; TEMP 36.4–36.7; O2SAT 81–97
[2021-12-31 06:43] LABS: Hematocrit 27.6 % (37-47); Hemoglobin 8.8 g/dL (12.0-15.0); Mean Corp Hgb Conc 31.9 g/dL (32-36); Mean Corpuscular Hgb 25.6 pg (27.0-32.0); Mean Corpuscular Volume 80.2 fL (81-99); Platelet Count 191 K/mm3 (150-450); RBC Distribution Width CV 14.1 % (11.6-14.6); RBC Distribution Width SD 40.5 fl (35.1-43.9); Red Blood Count 3.44 M/mm3 (4.2-5.4); White Blood Count 15.4 K/mm3 (4.4-11.0)
--- NOTE | 2021-12-31 08:23 | PCM.PN.OB ---
Subjective Subjective Jelly is sore. Reports vulvar swelling and some urinary leakage. No bowel movement yet. Nursing going well. Reports occasional gush of blood. Denies clots or heavy lochia. Objective Data Objective Data Vital Signs: Vital Signs Temp Pulse Resp BP Pulse Ox O2 Del Method 97.5 F L 70 18 131/86 H 96 Room Air 12/31/21 04:25 12/31/21 04:25 12/31/21 04:25 12/31/21 04:25 12/31/21 04:25 12/31/21 04:25 Oxygen Delivery Method Room Air Weight: 121 kg Body Mass Index (BMI) 38.2 Intake & Output: Intake and Output for Last 24 Hours 12/29/21 12/30/21 12/31/21 23:59 23:59 23:59 Intake Total 6944.06 / 6944.06 610 / 610 Output Total 4350 / 4350 1870 / 1870 Balance 2594.06 / 2594.06 -1260 / -1260 Lab / Micro Data Result Diagrams: 12/31/21 06:25 Labs: Laboratory Results - last 24 hr 12/31/21 06:25: WBC 15.4 H, RBC 3.44 L, Hgb 8.8 L, Hct 27.6 L, MCV 80.2 L, MCH 25.6 L, MCHC 31.9 L, RDW Std Deviation 40.5, RDW Coeff of Regino 14.1, Plt Count 191, MPV 12.0 Micro: Microbiology 12/28/21 07:40 Nasal Secretion SARS-CoV-2 Antigen (Rapid) - Final Physical Exam Const alert, oriented x3 and no apparent distress Resp normal respiratory effort, normal air movement and clear to auscultation bilaterally Cardio regular rate, regular rhythm, S1 normal heart sound and S2 normal heart sound GI soft to palpation, non-tender and non-distended Narrative: Mild vulvar edema, no hemorrhoids Manual OB Exam: other lochia scant Uterus Palpation: uterus fundus firm Extremity no calf tenderness Extremity Narrative: 1+ b/l LE edema Assessment & Plan (1) (spontaneous vaginal delivery): PLAN: Rh positive d/c home today (2) Laceration of cervix during delivery: COMMENT: sulcal tear and labial lacs also PLAN: Hgb 8.8 Fe supplementation
--- NOTE | 2021-12-31 08:41 | DCINST_ITS ---
Discharge Instructions Diet Discharge Diet: No restrictions Activity Discharge Activity: Return to Normal Activity and May Shower May resume sexual activity in: 6 weeks Lifting Restrictions: 10 lb Dressing / Incision Call your doctor if you observe: Fever of 101 or Higher, Inability to urinate, Inability to have a bowel movement, Using more than 1 pad per hour, Shortness of breath, Chest pain, Calf discomfort, Uncontrolled pain and - (Persistent or severe headache) Suture Line Care: Avoid Pulling/Pushing Follow Up Care Please Follow Up With: Martínez Worrell MD When: 3 weeks for telehealth check 6 weeks for visit Test Results: Test results from this visit will be discussed in further detail at your follow- up appointment, if applicable. Discharge Plan Admission Admit Date/Time: 12/28/21 07:00 Primary Reason for Your Visit: Vaginal delivery Attending Provider: Traci Antoine Primary Care Provider: Ericka Gresham Discharge Orders/Prescriptions Prescriptions: No Action famotidine 40 mg Tablet 40 mg PO BID 1 mg Tablet 1 tab PO DAILY Referrals / Follow Up: Ericka Gresham PA [Primary Care Provider] - Disposition Disposition (needs filled in before D/C Order can be placed): Home, Self Care
--- NOTE | 2021-12-31 08:42 | PCM.DC.SUM ---
Providers Date of Admission: 12/28/21 Date of Discharge: 12/31/21 Primary Care Physician: SCHUYLER Diez Reason For Visit: LABOR & DELIVERY Diagnosis Discharge Diagnosis (1) (spontaneous vaginal delivery): Status: Acute Code(s): O80 - Encounter for full-term uncomplicated delivery Plan: Rh positive d/c home today (2) Laceration of cervix during delivery: Status: Acute Code(s): O71.3 - Obstetric laceration of cervix Plan: Hgb 8.8 Fe supplementation Medications at Discharge Home Medications famotidine 40 mg tablet 40 mg PO BID heartburn 12/28/21 [id number] 1 mg tablet 1 tab PO DAILY 12/28/21 ibuprofen 600 mg tablet 600 mg PO Q8H PRN PRN Pain Score 1-3 #30 tabs 12/31/21 Hospital Course Operations None Procedures None Summary of Care Provided Hospital Course: 26yo admitted at 39 weeks gestation for scheduled induction of labor. She had a spontaneous vaginal delivery at 39 1/7 weeks gestation complicated by cervical laceration as well as left sulcal laceration. Her course was otherwise unremarkable and she was discharged to home on day #2. Weight / BMI Weight Weight: 121 kg Body Mass Index (BMI) 38.2 ABG / Lab / Microbiology Data Result Diagrams: 12/31/21 06:25 Laboratory: Laboratory Results - last 24 hr 12/31/21 06:25: WBC 15.4 H, RBC 3.44 L, Hgb 8.8 L, Hct 27.6 L, MCV 80.2 L, MCH 25.6 L, MCHC 31.9 L, RDW Std Deviation 40.5, RDW Coeff of Regino 14.1, Plt Count 191, MPV 12.0 Microbiology: Microbiology 12/28/21 07:40 Nasal Secretion SARS-CoV-2 Antigen (Rapid) - Final D/C Instructions Discharge Diet: No restrictions Discharge Activity: Return to Normal Activity and May Shower May resume sexual activity in: 6 weeks Call your doctor if you observe: Fever of 101 or Higher, Inability to urinate, Inability to have a bowel movement, Using more than 1 pad per hour, Shortness of breath, Chest pain, Calf discomfort, Uncontrolled pain and - (Persistent or severe headache) Suture Line Care: Avoid Pulling/Pushing Please Follow Up With: Martínez Worrell MD When: 3 weeks for telehealth check 6 weeks for visit Meaningful Use Info Meaningful Use Diagnoses (Choose all that apply): None applicable Discharge Plan Admission Admit Date/Time: 12/28/21 07:00 Primary Reason for Your Visit: Vaginal delivery Attending Provider: Traci Antoine Primary Care Provider: Ericka Gresham Discharge Orders/Prescriptions Prescriptions: New ibuprofen 600 mg Tablet 600 mg PO Q8H PRN PRN (Reason: Pain Score 1-3) Qty: 30 0RF Continued famotidine 40 mg Tablet 40 mg PO BID dznifzxh-nqd-Nq-FA 1 mg Tablet 1 tab PO DAILY Referrals / Follow Up: Ericka Gresham PA [Primary Care Provider] - Disposition Disposition (needs filled in before D/C Order can be placed): Home, Self Care
[2021-12-31] MEDS: Famotidine 20 MG Tablet PO (08:59)
--- NOTE | 2022-01-04 17:25 | NURSING ---
Really liked Faina Howard and Dee , mother doing well , some swelling but no other symptoms and did have BP checked today and was ok.
== END 2021-12-31 11:30 | disposition home or self-care (01) | DRG 768 ==
PROVIDERS: Admitting Provider Obstetrics & Gynecology; PCP Physician Assistant; Referring Provider Obstetrics & Gynecology; Visit Provider Obstetrics & Gynecology
DX: O71.3 Obstetric laceration of cervix (principal); Z37.0 Single live birth; O26.23 Pregnancy care for patient with recurrent pregnancy loss, third trimester; O70.0 First degree perineal laceration during delivery; Z3A.39 39 weeks gestation of pregnancy; O75.89 Other specified complications of labor and delivery
CPT/HCPCS: 59025; 59050; 76815; 85025; 85027; 86850; 86900; 86901; 87426; 99218; J7120; A4216; G0378; J2405

== ENCOUNTER → 2022-08-29 | Outpatient (CLI) | payer BC, SELFPAY ==
[2022-08-29 10:52] LABS: Hematocrit 42.6 % (37-47); Hemoglobin 14.8 g/dL (12.0-15.0); Mean Corp Hgb Conc 34.7 g/dL (32-36); Mean Corpuscular Hgb 29.4 pg (27.0-32.0); Mean Corpuscular Volume 84.5 fL (81-99); Mean Platelet Vol. 11.1 fl (6.2-12.0); Platelet Count 312 K/mm3 (150-450); RBC Distribution Width CV 13.4 % (11.6-14.6); RBC Distribution Width SD 41.6 fl (35.1-43.9); Red Blood Count 5.04 M/mm3 (4.2-5.4); White Blood Count 6.5 K/mm3 (4.4-11.0)
[2022-08-29 11:48] LABS: AST(SGOT) 20 U/L (15-37); Alanine Aminotransfer ALT/SGPT 29 U/L (13-56); Albumin, Serum 3.9 g/dL (3.2-5.0); Alkaline Phosphatase 77 U/L (45-117); Anion Gap 8 (5-15); BUN 14 mg/dL (7-18); BUN/Creat Ratio 18.2 RATIO (10-20); Calcium,Total 9.4 mg/dL (8.5-10.1); Chloride 109 mmol/L (98-107); Creatinine, Serum 0.77 mg/dL (0.55-1.02); EST Glomerular Filtration Rate 94 mL/min (>60); Est Glom Filt Rate - Afr Amer 114 mL/min (>60); Globulin 3.9 g/dL (2.2-4.2); Glucose 89 mg/dL (74-106); Prolactin 3.5 ng/mL; Protein, Total 7.8 g/dL (6.4-8.2); Sodium Level 139 mmol/L (136-145); Thyroid Stim Hormone (TSH) 2.61 uIU/mL (0.358-3.74)
[2022-08-29 11:52] LABS: HIV - WCH Non-Reactive (Nonreactive); Hepatitis B Surface Antigen Non-Reactive (Nonreactive); Hepatitis C Antibody Non-Reactive (Nonreactive); Rubella IgG Reactive (Nonreactive); Syphilis Antibodies Non-reactive; Vitamin D,25 Hydroxy 21.1 ng/mL
[2022-08-29 12:00] LABS: Hemoglobin A1c 5.2 % (3.8-5.6)
[2022-08-30 18:55] LABS: V-Zoster IgG (Immunity) 1343 index (Immune >165)
== END | disposition home or self-care (01) ==
LOC: WOBLAB 09:33
PROVIDERS: PCP Physician Assistant; Visit Provider Obstetrics & Gynecology Reproductive Endocrinology
DX: Z31.41 Encounter for fertility testing (principal)
CPT/HCPCS: 36415; 80053; 82306; 83036; 84146; 84403; 84443; 85027; 86703; 86762; 86780; 86787; 86803; 86850; 86900; 86901; 87340

== ENCOUNTER → 2022-09-14 | Outpatient (CLI) | payer BC, SELFPAY ==
--- NOTE | 2022-09-14 10:20 | US_ITS ---
INDICATION: INFERTILITY -- AMENORRHEA EXAMINATION: Ultrasound US Sonohysterography including color flow Doppler, when performed TECHNIQUE: After obtaining informed consent, routine transabdominal sonography was performed. Subsequently, a speculum was placed in the vaginal canal and a catheter inserted into the endometrial canal. Sterile saline was then injected into the endometrial canal under sonographic guidance. COMPARISON: None. FINDINGS: ---Routine Ultrasound Exam: The endometrium measures 11 mm. There is a hyperechoic likely polyp in the endometrium measuring 1.4 x 1.0 cm. There is also evidence of echogenic debris within the uterus measuring 0.8 x 0.8 cm. This may be an involuted fibroid. ---Sonohysterography: US/SIS-SALINE INF SONOHYSTEROGRAM IMPRESSION: Hyperechoic endometrium measuring 11 mm Endometrial polyp suspected measuring 1.4 x 1.0 cm. Complex echogenic debris within the uterus measuring 0.8 x 0.8 cm, involuting fibroid suspected Electronically Signed: Deshaun Marinelli MD at 12:15 EDT ,
== END | disposition home or self-care (01) ==
LOC: US 10:19
PROVIDERS: PCP Physician Assistant; Visit Provider Obstetrics & Gynecology
DX: N91.2 Amenorrhea, unspecified (principal)
CPT/HCPCS: 58340; 76831

== ENCOUNTER 2022-11-12 06:13 | Day surgery (SDC) | payer BC, SELFPAY ==
[2022-11-07 12:09] LABS: Hematocrit 40.1 % (37-47); Hemoglobin 13.5 g/dL (12.0-15.0); Mean Corp Hgb Conc 33.7 g/dL (32-36); Mean Corpuscular Hgb 28.8 pg (27.0-32.0); Mean Corpuscular Volume 85.7 fL (81-99); Mean Platelet Vol. 10.9 fl (6.2-12.0); Platelet Count 312 K/mm3 (150-450); RBC Distribution Width CV 13.2 % (11.6-14.6); RBC Distribution Width SD 41.1 fl (35.1-43.9); Red Blood Count 4.68 M/mm3 (4.2-5.4); White Blood Count 6.5 K/mm3 (4.4-11.0)
[2022-11-12] VITALS (11 sets, daily range): BP systolic 62–128; BP diastolic 38–90; PULSE 40–82; RESP 12–18; TEMP 36–36.6; O2SAT 88–98; BMI 36.2
--- NOTE | 2022-11-12 | EMB_PTH ---
PATIENT: KACI SHIRLEY LOC: [facility] [place] U#:[id number] AGE/SX: 27/F ROOM: RE11/12/[address]: Dr. Martínez Worrell MD : 1995 BED: DIS: 11/12/2022 SPEC #: [id number] RECD: 11/12/22 10:01 STATUS: JAIDA REAlejandra #: [id number] FERNANDO: 11/12/22 00:[address]: Martínez Worrell DEPT: SURGICAL PATHOLOGY RECD BY: Brendan Perez ENTERED: 11/12/22 11:09 SP TYPE: ENDOM BX/C GALO DR: SCHUYLER Diez Tissues: Endometrium, NOS Procedures: Surgery Specimen Level IV HEADER OPERATION: Hysteroscopy, D & C Symphion, polypectomy PRE-OP DIAGNOSIS: Uterine polyp TISSUE SUBMITTED: Endometrial curettings and uterine polyp MICROSCOPIC DIAGNOSIS Endometrial curettings and uterine polyp: Mildly disordered proliferative endometrium. A few fragments of myometrium. SJ:miranda 11/13/2022 MICROSCOPIC DESCRIPTION Slides are reviewed. GROSS DESCRIPTION Received in fixative is one container labeled with the patient's name and designated endometrial curettings and uterine polyp. The specimen consists of multiple irregular fragments of hernandez-pink soft tissue that in aggregate measure 2.0 x 2.0 x 0.3 cm. The specimen is totally submitted in one cassette. / ANJU:miranda 11/12/2022 TC:5 CPT: 98565
[2022-11-12 06:47] LABS: Internal QC Validated? YES +Cl - CLEAR BKGD
[2022-11-12 06:48] LABS: Pregnancy, Urine Negative Negative
[2022-11-12] MEDS: Lactated Ringers 1,000 ML 15 ML IV (06:53)
--- NOTE | 2022-11-12 07:23 | PCM.HP.BLA ---
History and Physical Date of Admission: 11/12/22 Chief complaint: Uterine polyp History present illness: 27-year-old arrives for scheduled hysteroscopy, dilation curettage, polypectomy. No medical changes since last seen. All questions answered and consent signed. Obstetric history: with a history of a vaginal delivery and 1 SAB Past medical history: None Medications: None Allergies: Amoxicillin, Dermabond Past surgical history: Tonsils and adenoids, appendectomy, ovarian drilling, egg retrieval, D&C Social history: Denies smoking, alcohol use, drug use Family history: Denies history DVT or PE Review of systems: Besides above pertinent positives a full review of systems was performed and found to be negative Physical exam: Vitals: Blood pressure 128/77 pulse 74 respiratory rate 18 temperature 97.2 ?F SPO2 97% on room air General: Normal-appearing no acute distress HEENT: Normocephalic/atraumatic no cervical lymphadenopathy Cardiac/respiratory: No use of accessory muscles, nonlabored breathing Abdomen: Soft, nontender, nondistended Extremities: No peripheral edema normal peripheral pulses Psych: Normal affect normal demeanor nonpressured speech Labs: Urine test negative Assessment and plan: 27-year-old arrives for hysteroscopy, dilation curettage, polypectomy. Patient understands the risk of the procedure include but are not limited to visceral or vascular injury, prolonged hospitalization, blood loss and need for transfusion, reoperation. Patient state understanding wish to proceed. All questions were answered and consent was signed.
[2022-11-12] MEDS: Lubricating Jelly 60 GM Tube 30 GM (07:52)
--- NOTE | 2022-11-12 08:10 | DCINST_ITS ---
Discharge Instructions Diet Discharge Diet: No restrictions Activity Discharge Activity: Return to Normal Activity, May Drive and May Shower May resume sexual activity in: 4-6 weeks Weight Bearing Status: Weight bearing as tolerated Dressing / Incision Call your doctor if your incision/area has: Continuous Slow Oozing and Foul Smelling Discharge Call your doctor if you observe: Fever of 101 or Higher, Shortness of breath and Chest pain Follow Up Care Please Follow Up With: Martínez Worrell MD When: 2 weeks postoperatively Test Results: Test results from this visit will be discussed in further detail at your follow- up appointment, if applicable. Discharge Plan Admission Attending Provider: Martínez Worrell Primary Care Provider: Ericka Gresham Discharge Orders/Prescriptions Prescriptions: No Action NK Referrals / Follow Up: Ericka Gresham PA [Primary Care Provider] - Disposition Disposition (needs filled in before D/C Order can be placed): Home, Self Care
--- NOTE | 2022-11-12 08:11 | PCM.OPRPT ---
Report of Operation Date of Procedure: 11/12/22 Pre-Operative Diagnosis: Uterine polyp Post-Operative Diagnosis: Uterine polyp Surgery/Procedure Performed:: Hysteroscopy, dilation curettage, uterine polypectomy via Symphion Description of Surgical Findings:: Surgeon: Martínez Worrell MD Anesthesia: MAC EBL: 3 cc Urine output: 150 cc IV fluids: 600 cc Symphion on fluid deficit: 450 cc Complications: None Specimen: Endometrial curettings, uterine polyp Findings: Uterus with fundal uterine polyp millimeters in size. Otherwise thickened lining of the uterus. Otherwise normal cavity Consent: Patient with uterine polyp elects for hysteroscopy, dilation curettage, polypectomy via Symphion on. Patient understands the risk of the procedure include but are not limited to visceral or vascular injury, prolonged hospitalization, blood loss and need for transfusion, reoperation. Patient state understanding wish to proceed. All questions were answered and consent was signed. Procedure: Patient was brought back to the OR where MAC anesthesia was found to be adequate. Patient was prepared and draped in a dorsolithotomy position with yellowfin stirrups. A weighted speculum is placed in the posterior aspect of the vagina and cervical dilators used to dilate the cervix. Hysteroscope was inserted and above findings were noted. Using Symphion device D&C and polypectomy were performed in all quadrants and all sent to pathology. Good hemostasis was noted. Above fluid deficit was noted. All counts were correct x2. Patient tolerated procedure well and was brought to recovery in stable condition.
--- NOTE | 2022-11-12 08:36 | SUR.PHASEI ---
AFTER DILAUDID GIVEN AT 0819, PT BECAME PALE AND DIAPHORETIC. BP AND SPO2 DECREASED. PT PUT IN [place], [address] QUINTANILLA CALLED, OK TO GIVE BOLUS OF LR 500 ML. PT BP INCREASING AND PT COLOR IS LOOKING BETTER. PAIN TOLERABLE.
[2022-11-12] MEDS: Ketorolac 30 MG/ML Syringe IV (08:41)
== END 2022-11-12 10:02 | disposition home or self-care (01) ==
LOC: SDC 06:14 → AC 06:22
PROVIDERS: Anesthesiology; PCP Physician Assistant; Visit Provider Obstetrics & Gynecology
PROC: 0UB98ZZ Excision of Uterus, Via Natural or Artificial Opening Endoscopic (ICD-10-PCS; CPT 58558; principal; 2022-11-12 07:15)
DX: N84.0 Polyp of corpus uteri (principal); E28.2 Polycystic ovarian syndrome; E03.9 Hypothyroidism, unspecified
CPT/HCPCS: 58558; 36415; 81025; 85027; 86850; 86900; 86901; 88305; J7120; J2405

== ENCOUNTER → 2022-12-31 | Outpatient (CLI) | payer BC, SELFPAY ==
[2022-12-31 10:10] LABS: Progesterone Level 0.37 ng/mL (See Comment); hCG Titer Quant., Serum < 1 mIU/mL (1-3)
[2022-12-31 10:15] LABS: Estradiol 38.4 pg/mL; Follicle Stimulating Hormone 4.4 mIU/mL; Luteinizing Hormone 9.2 mIU/mL; Thyroid Stim Hormone (TSH) 2.13 uIU/mL (0.358-3.74)
== END | disposition home or self-care (01) ==
LOC: WOBLAB 09:18
PROVIDERS: PCP Physician Assistant; Visit Provider Obstetrics & Gynecology Reproductive Endocrinology
DX: Z31.83 Encounter for assisted reproductive fertility procedure cycle (principal)
CPT/HCPCS: 36415; 82670; 83001; 83002; 84144; 84443; 84702

== ENCOUNTER → 2023-01-04 | Outpatient (CLI) | payer BC, SELFPAY ==
[2023-01-04 13:16] LABS: Estradiol 75.1 pg/mL; Luteinizing Hormone 11.5 mIU/mL
[2023-01-04 13:17] LABS: Progesterone Level 0.32 ng/mL (See Comment)
== END | disposition home or self-care (01) ==
LOC: WOBLAB 12:07
PROVIDERS: PCP Physician Assistant; Visit Provider Obstetrics & Gynecology Reproductive Endocrinology
DX: Z31.83 Encounter for assisted reproductive fertility procedure cycle (principal)
CPT/HCPCS: 36415; 82670; 83002; 84144

== ENCOUNTER → 2023-01-16 | Outpatient (CLI) | payer BC, SELFPAY ==
[2023-01-16 11:06] LABS: Estradiol 132.9 pg/mL
[2023-01-16 12:13] LABS: Progesterone Level 61.74 ng/mL (See Comment)
== END | disposition home or self-care (01) ==
LOC: WOBLAB 09:50
PROVIDERS: PCP Physician Assistant; Visit Provider Obstetrics & Gynecology Reproductive Endocrinology
DX: Z31.49 Encounter for other procreative investigation and testing (principal)
CPT/HCPCS: 36415; 82670; 84144

== ENCOUNTER → 2023-01-21 | Outpatient (CLI) | payer BC, SELFPAY ==
[2023-01-21 10:24] LABS: hCG Titer Quant., Serum 13 mIU/mL (1-3)
[2023-01-21 10:44] LABS: Progesterone Level 56.83 ng/mL (See Comment)
== END | disposition home or self-care (01) ==
LOC: WOBLAB 09:38
PROVIDERS: PCP Physician Assistant; Visit Provider Obstetrics & Gynecology Reproductive Endocrinology
DX: Z32.00 Encounter for pregnancy test, result unknown (principal)
CPT/HCPCS: 36415; 84144; 84702

== ENCOUNTER → 2023-01-23 | Outpatient (CLI) | payer BC, SELFPAY ==
[2023-01-23 10:23] LABS: hCG Titer Quant., Serum 10 mIU/mL (1-3)
[2023-01-23 10:47] LABS: Progesterone Level 82.09 ng/mL (See Comment)
[2023-01-23 16:18] LABS: Estradiol 160.9 pg/mL; Thyroid Stim Hormone (TSH) 3.11 uIU/mL (0.358-3.74)
== END | disposition home or self-care (01) ==
PROVIDERS: PCP Physician Assistant; Referring Provider Obstetrics & Gynecology Reproductive Endocrinology; Visit Provider Obstetrics & Gynecology Reproductive Endocrinology
DX: Z32.01 Encounter for pregnancy test, result positive (principal)
CPT/HCPCS: 36415; 82670; 84144; 84443; 84702

== ENCOUNTER → 2023-01-25 | Outpatient (CLI) | payer BC, SELFPAY ==
[2023-01-25 12:26] LABS: hCG Titer Quant., Serum 4 mIU/mL (1-3)
[2023-01-25 12:27] LABS: Estradiol 53.8 pg/mL; Progesterone Level 7.41 ng/mL (See Comment)
== END | disposition home or self-care (01) ==
LOC: WOBLAB 11:28
PROVIDERS: PCP Physician Assistant; Visit Provider Obstetrics & Gynecology Reproductive Endocrinology
DX: O02.81 Inappropriate change in quantitative human chorionic gonadotropin (hCG) in early pregnancy (principal)
CPT/HCPCS: 36415; 82670; 84144; 84702

== ENCOUNTER → 2023-01-30 | Outpatient (CLI) | payer BC, SELFPAY ==
[2023-01-30 11:26] LABS: Progesterone Level 0.98 ng/mL (See Comment); hCG Titer Quant., Serum < 1 mIU/mL (1-3)
[2023-01-30 11:33] LABS: Follicle Stimulating Hormone 4.5 mIU/mL; Luteinizing Hormone 7.7 mIU/mL; Thyroid Stim Hormone (TSH) 0.99 uIU/mL (0.358-3.74)
== END | disposition home or self-care (01) ==
LOC: WOBLAB 10:35
PROVIDERS: PCP Physician Assistant; Visit Provider Obstetrics & Gynecology Reproductive Endocrinology
DX: Z31.83 Encounter for assisted reproductive fertility procedure cycle (principal)
CPT/HCPCS: 36415; 82670; 83001; 83002; 84144; 84443; 84702

== ENCOUNTER → 2023-02-05 | Outpatient (CLI) | payer BC, SELFPAY ==
[2023-02-05 11:14] LABS: Progesterone Level 0.33 ng/mL (See Comment)
[2023-02-05 11:15] LABS: Estradiol 627.8 pg/mL
== END | disposition home or self-care (01) ==
LOC: WOBLAB 09:55
PROVIDERS: PCP Physician Assistant; Visit Provider Obstetrics & Gynecology Reproductive Endocrinology
DX: Z31.83 Encounter for assisted reproductive fertility procedure cycle (principal)
CPT/HCPCS: 36415; 82670; 83002; 84144

== ENCOUNTER → 2023-02-18 | Outpatient (CLI) | payer BC, SELFPAY ==
[2023-02-18 10:08] LABS: Progesterone Level 53.15 ng/mL (See Comment)
== END | disposition home or self-care (01) ==
LOC: WOBLAB 08:51
PROVIDERS: PCP Physician Assistant; Visit Provider Obstetrics & Gynecology Reproductive Endocrinology
DX: Z31.49 Encounter for other procreative investigation and testing (principal)
CPT/HCPCS: 36415; 82670; 84144

== ENCOUNTER → 2023-02-22 | Outpatient (CLI) | payer BC, SELFPAY ==
[2023-02-22 11:45] LABS: hCG Titer Quant., Serum 168 mIU/mL (1-3)
[2023-02-22 11:46] LABS: Progesterone Level 51.77 ng/mL (See Comment)
== END | disposition home or self-care (01) ==
LOC: WOBLAB 11:01
PROVIDERS: PCP Physician Assistant; Visit Provider Obstetrics & Gynecology Reproductive Endocrinology
DX: Z32.00 Encounter for pregnancy test, result unknown (principal)
CPT/HCPCS: 36415; 84144; 84702

== ENCOUNTER → 2023-02-25 | Outpatient (CLI) | payer BC, SELFPAY ==
[2023-02-25 12:01] LABS: Estradiol 801.4 pg/mL; Thyroid Stim Hormone (TSH) 2.49 uIU/mL (0.358-3.74)
[2023-02-25 12:34] LABS: hCG Titer Quant., Serum 635 mIU/mL (1-3)
[2023-02-25 12:49] LABS: Progesterone Level 42.51 ng/mL (See Comment)
== END | disposition home or self-care (01) ==
LOC: POLAB3 09:34
PROVIDERS: PCP Physician Assistant; Visit Provider Obstetrics & Gynecology Reproductive Endocrinology
DX: Z32.01 Encounter for pregnancy test, result positive (principal)
CPT/HCPCS: 36415; 82670; 84144; 84443; 84702

== ENCOUNTER 2023-03-09 21:40 | Emergency (ER) | payer BC, SELFPAY ==
[2023-03-09 21:40] VITALS: BP 142/101; PULSE 94; RESP 20; TEMP 36.6; O2SAT 99
[2023-03-09 21:53] VITALS: BMI 36.8
--- NOTE | 2023-03-09 22:35 | US_ITS ---
STUDY: FIRST TRIMESTER OBSTETRICAL ULTRASOUND REASON FOR EXAM: Female, 27 years old LEFT ab pain -- BLEEDING W/ -- IVF -- US 2 DAYS AGO AT [facility] SHOWING 6 WEEK TWINS, 1 W/ POSITIVE FHM PER PATIENT LMP: Unknown. TECHNIQUE: Transvaginal TECHNICAL QUALITY: Adequate. PRIOR ULTRASOUND: None. FINDINGS: There is a visualized twin . Baby A gestational sac may be a gestational sac measures 0.7 cm. This equates to a 5 week 3 day . There is a visualized pole measuring 0.28 cm equating to a 6 week 1 day . The yolk sac measures 0.44 cm. heart tones are 10 6 bpm. This would equate to an approximate estimated delivery date of 11/03/2023. Baby B gestational sac measures 1.7 cm equating to a 6 week 5 day . The pole measures 0.5 cm equating to a 6 week 3 day . Yolk sac measures 4 mm. heart tones are 1 33 bpm. This equates to an approximate delivery date of 10/29/2023. There is a larger gestational sac adjacent to a smaller gestational sac. At this time it is somewhat difficult to determine the gestation. There appears to be a thick wall between each gestation. Suggesting a diamniotic dichorionic . Adjacent to the smaller gestational sac there is a visualized focus of low attenuation measuring 2.8 mm which may represent a small subchronic hemorrhage. The placenta is non-visualized. The uterus measures 10.9 x 5.5 x 6.4 cm.. There is no demonstrated uterine fibroid. The cervix is closed. The right ovary measures 3.7 x 2.1 x 2.3 cm.. There is no right ovarian cyst. There is no visualized right adnexal mass or complex lesion. The left ovary measures 3.2 x 2.0 x 2.0 cm.. There is no left ovarian cyst. There is no visualized left adnexal mass or complex lesion. There is no fluid in the cul de sac. IMPRESSION: Twin live gestation one larger one smaller. Estimated age is as detailed above, between 5 days 6 weeks and 6 weeks 4 days. There may be a trace of subchorionic hemorrhage adjacent to the smaller gestation, baby A. The baby a has a lower cardiac activity 106/m compared to the baby B side, 1 33 bpm. Appropriate close interval follow-up is warranted. Electronically Signed: Darlene Reyes MD at 1:21 EDT , STUDY: FIRST TRIMESTER OBSTETRICAL ULTRASOUND (TWINS) REASON FOR EXAM: Female, 27 years old. LMP: LEFT ab pain -- BLEEDING W/ -- IVF -- US 2 DAYS AGO AT [facility] SHOWING 6 WEEK TWINS, 1 W/ POSITIVE FHM PER PATIENT TECHNIQUE: Transabdominal TECHNICAL QUALITY: Adequate. COMPARISON: None. FINDINGS: STUDY: FIRST TRIMESTER OBSTETRICAL ULTRASOUND REASON FOR EXAM: Female, 27 years old LEFT ab pain -- BLEEDING W/ -- IVF -- US 2 DAYS AGO AT [facility] SHOWING 6 WEEK TWINS, 1 W/ POSITIVE FHM PER PATIENT LMP: Unknown. TECHNIQUE: Transvaginal TECHNICAL QUALITY: Adequate. PRIOR ULTRASOUND: None. FINDINGS: There is a visualized twin . Baby A gestational sac may be a gestational sac measures 0.7 cm. This equates to a 5 week 3 day . There is a visualized pole measuring 0.28 cm equating to a 6 week 1 day . The yolk sac measures 0.44 cm. heart tones are 10 6 bpm. This would equate to an approximate estimated delivery date of 11/03/2023. Baby B gestational sac measures 1.7 cm equating to a 6 week 5 day . The pole measures 0.5 cm equating to a 6 week 3 day . Yolk sac measures 4 mm. heart tones are 1 33 bpm. This equates to an approximate delivery date of 10/29/2023. There is a larger gestational sac adjacent to a smaller gestational sac. At this time it is somewhat difficult to determine the gestation. There appears to be a thick wall between each gestation. Suggesting a diamniotic dichorionic . Adjacent to the smaller gestational sac there is a visualized focus of low attenuation measuring 2.8 mm which may represent a small subchronic hemorrhage. The placenta is non-visualized. The uterus measures 10.9 x 5.5 x 6.4 cm.. There is no demonstrated uterine fibroid. The cervix is closed. The right ovary measures 3.7 x 2.1 x 2.3 cm.. There is no right ovarian cyst. There is no visualized right adnexal mass or complex lesion. The left ovary measures 3.2 x 2.0 x 2.0 cm.. There is no left ovarian cyst. There is no visualized left adnexal mass or complex lesion. There is no fluid in the cul de sac. IMPRESSION: Twin live gestation one larger one smaller. Estimated age is as detailed above, between 5 days 6 weeks and 6 weeks 4 days. There may be a trace of subchorionic hemorrhage adjacent to the smaller gestation, baby A. The baby a has a lower cardiac activity 106/m compared to the baby B side, 1 33 bpm. Appropriate close interval follow-up is warranted. US/Transvaginal w/Preg US IMPRESSION: Normal intrauterine first trimester Electronically Signed: Darlene Reyes MD at 1:21 EDT ,
[2023-03-09] MEDS: Ondansetron 4 MG/2 ML Vial IV (22:54)
[2023-03-09] MEDS: 0.9% Normal Saline (1000mL) 1,000 ML 999 ML IV (22:54)
[2023-03-09] MEDS: Morphine 4 MG/ML Syringe IV (22:54)
[2023-03-09 22:55] VITALS: BP 134/82; PULSE 100; RESP 24; O2SAT 100
--- NOTE | 2023-03-09 23:02 | EDS_ITS ---
HPI HPI - Female History of Present Illness Chief Complaint: Vag Bld, Preg Narrative Narrative: 27-year-old female with acute onset left flank pain. Patient status post IVF which she states she received in [place]. She is to follow-up with Dr. Worrell, But states that she had to change her [facility] to [facility] because he is closing office and leaving. Patient states she had an ultrasound a couple days ago which showed 6 weeks gestation for twins. No ectopic was noted. Now she is having vaginal bleeding with her flank pain. Patient continues to do Lovenox daily, Pregnyl, progesterone daily. [facility] Medical History Dysmenorrhea Gastric reflux Heartburn Hypothyroidism Infertility Infertility Non-smoker PCOS (polycystic ovarian syndrome) Wears contact lenses Wears glasses Home Medications chorionic gonadotropin, human 10,000 unit IM powder for solution (Pregnyl) unit IM 03/09/23 [History Last Taken Unknown] enoxaparin 30 mg/0.3 mL subcutaneous syringe 30 mg subcut DAILY 03/09/23 [History Last Taken Unknown] estradiol 2 mg tablet 2 mg PO TID 03/09/23 [History Last Taken Unknown] metformin 750 mg tablet,extended release 24 hr 750 mg PO DAILY 03/09/23 [History Last Taken Unknown] naltrexone 4.5 mg capsule 4.5 mg PO DAILY 03/09/23 [History Last Taken Unknown] prednisone 5 mg tablet 5 mg PO DAILY 03/09/23 [History Last Taken Unknown] progesterone 50 mg/mL intramuscular oil mg IM 03/09/23 [History Last Taken Unknown] progesterone micronized 200 mg capsule 200 mg vaginal TID 03/09/23 [History Last Taken Unknown] Allergy/AdvReac Type Severity Reaction Status Date / Time adhesive Allergy Intermediate Swelling Verified 03/09/23 21:42 amoxicillin Allergy Hives Verified 03/09/23 21:42 Surgical History History of abdominal surgery History of myringotomy History of surgery Hx of colonoscopy Hx of dilation and curettage Hx of LASIK Hx of pelvic surgery Social History Smoking Status: Never smoker ROS ROS ED Constitutional Constitutional ED: Denies chills, fever(s) or sweats Eyes Eyes: Denies blurry vision or change in vision ENT ENT ED: Denies ear pain or sore throat Cardiovascular Cardiovascular: Denies chest pain, palpitations or racing heartbeat Respiratory/Chest Respiratory/Chest: Denies cough, dyspnea or sputum Gastrointestinal Gastrointestinal: Reports abdominal pain; Denies constipation, diarrhea, nausea or vomiting Genitourinary Genitourinary ED: Reports other Details: Vaginal bleeding ; Denies dysuria, hematuria or urinary frequency Musculoskeletal Musculoskeletal: Denies arthralgias, myalgias or neck pain Integumentary Denies abscess, Abrasions or rash Neurologic Neurologic: Denies headache(s), paresthesias or weakness Psychiatric Psychiatric: Denies anxiety, depression, suicidal ideation or suicidal thoughts Endocrine Endocrinology: Denies polydipsia or polyuria EXAM Physical Exam Const Vital Signs: 03/09/23 21:40 03/09/23 22:55 03/10/23 02:07 Temperature 98 F Temperature Source Temporal Pulse Rate 94 100 104 H Respiratory Rate 20 H 24 H 22 H Blood Pressure 142/101 H 134/82 H 133/88 H Blood Pressure Mean 114 99 Pulse Ox 99 100 97 Oxygen Delivery Method Room Air Room Air Positive well nourished General Appearance ED: NAD HEENT Reports moist mucous membranes Eyes PERRL Neck no lymphadenopathy Resp normal respiratory effort Auscultation: Negative for rales, rhonchi or wheezes Cardio regular rate and regular rhythm GI Palpation: tender LLQ Extremity normal to inspection Neuro oriented x3 and CN's II-XII intact bilaterally Sensorium / Orientation: alert Skin no rashes or lesions noted MDM MDM MDM Narrative Medical decision making narrative: Patient presenting with left flank pain. Apparently she is status post in vitro fertilization and she is on Lovenox, progesterone, Pregnyl. She states she had an outpatient ultrasound on the other day with [facility] when she established which shows twins at roughly 6 weeks. Given her flank pain I am concerned for ectopic . I ordered a CBC to assess white blood cell count, hemoglobin, platelets. Her white blood cell count is slightly elevated at 13.9. hCG is appropriate at 31,863. Blood type is a positive so she does not need RhoGAM. Transvaginal ultrasound shows a small chorionic hemorrhage but to live intrauterine pregnancies without evidence of ectopic. Patient's pain is well controlled on reevaluation. Discussed with OB who recommended her disco ntinuing the Lovenox given the vaginal bleeding in . They are to follow-up with [facility] OB next week for repeat evaluation. Patient will also have to get in contact with her fertility physicians in [place]. Impression: 1. Threatened miscarriage 2. Left flank pain 3. Subchorionic hemorrhage 4. First trimester Lab Data Labs: Laboratory Results - last 24 hr 03/09/23 03/09/23 22:50 22:55 WBC 13.9 H RBC 4.44 Hgb 12.9 Hct 38.4 MCV 86.5 MCH 29.1 MCHC 33.6 RDW Std Deviation 42.8 RDW Coeff of Regino 13.5 Plt Count 332 MPV 10.9 Immature Gran % (Auto) 0.600 Neut % (Auto) 60.1 Lymph % (Auto) 29.2 Guthrie % (Auto) 8.4 Eos % (Auto) 1.2 Baso % (Auto) 0.5 Absolute Neuts (auto) 8.3 H Absolute Lymphs (auto) 4.05 Nucleated RBC % 0 HCG, Quant 87187 H Urine Color Red Urine Clarity Sl Cloudy Urine pH 6.0 Ur Specific Sumner 1.010 Urine Protein 100 H Urine Glucose (UA) Normal Urine Ketones Negative Urine Occult Blood 250 H Urine Nitrite Positive H Urine Bilirubin Negative Urine Urobilinogen Normal Ur Leukocyte Esterase 100 H Urine RBC > 100 SEEN Urine WBC 0-5 SEEN Ur Squamous Epith Cells 0-5 SEEN Urine Bacteria 0 SEEN Urine Mucus 0 SEEN Blood Type O POSITIVE Radiography Diagnostic Testing: Clinical Impression(s) from Imaging Studies Obstetrics Ultrasound 03/09/23 22:35 IMPRESSION: Normal intrauterine first trimester Electronically Signed: Darlene Reyes MD at 1:21 EDT , Discharge Plan Triage Chief Complaint: Vag Bld, Preg ED Provider: Shaheed Flaherty Dx/Rx/DC Orders Instructions: ED Possible Miscarriage ... Prescriptions: No Action enoxaparin 30 mg/0.3 mL syringe 30 mg subcut DAILY Patient Comments: INJECT 1 PREFILLED SYRINGE SUBCUTANEOUSLY ONCE DAILY progesterone 50 mg/mL oil IM Patient Comments: INJECT 75 MG (1.5 ML) INTRAMUSCULARLY ONCE DAILY DIRECTED chorionic gonadotropin, human [Pregnyl] 10,000 unit recon soln IM Patient Comments: INJECT 10,000 UNITS SUBCUTANEOUSLY X 1 DOSE DIRECTED progesterone micronized 200 mg capsule 200 mg vaginal TID Patient Comments: INSERT ONE CAPSULE VAGINALLY THREE TIMES DAILY estradiol 2 mg tablet 2 mg PO TID naltrexone 4.5 mg capsule 4.5 mg PO DAILY prednisone 5 mg tablet 5 mg PO DAILY Patient Comments: TAKE 1 TABLET BY MOUTH ONCE DAILY DIRECTED metformin 750 mg tablet extended release 24 hr 750 mg PO DAILY Patient Comments: TAKE 1 TABLET BY MOUTH ONCE DAILY Primary Care Provider: Ericka Gresham Referrals: Arabella Soliz MD [Med Staff - Active Staff] - 1-2 Days if not improving Ericka Gresham PA [Primary Care Provider] - Disposition Disposition: Home, Self Care Discharge Date/Time: 03/10/23 02:18
[2023-03-09 23:11] LABS: Bacteria 0 SEEN /hpf (None Seen); Mucous, Urine 0 SEEN /hpf (<or=2+)
[2023-03-09 23:24] LABS: Absolute Lymphocyte Count 4.05 X10^3/uL (0.83-4.51); Absolute Neutrophil Count 8.3 X10^3/uL (2.0-7.7); Basophil# 0.07 X10^3/uL; Basophil% 0.5 % (0-1); Eosinophil# 0.16 X10^3/uL; Eosinophils% 1.2 % (0-5); Hematocrit 38.4 % (37-47); Hemoglobin 12.9 g/dL (12.0-15.0); Lymphocyte # 4.05 X10^3/ul (0.83-4.51); Lymphocyte % 29.2 % (19-41); Mean Corp Hgb Conc 33.6 g/dL (32-36); Mean Corpuscular Hgb 29.1 pg (27.0-32.0); Mean Corpuscular Volume 86.5 fL (81-99); Mean Platelet Vol. 10.9 fl (6.2-12.0); Monocyte# 1.16 X10^3/uL; Monocyte% 8.4 % (0-10); NRBC Flagged by Analyzer 0 % (0-5); Neutrophil # 8.33 X10^3/uL (2.7-7.7); Neutrophil % 60.1 % (47-70); Platelet Count 332 K/mm3 (150-450); RBC Distribution Width CV 13.5 % (11.6-14.6); RBC Distribution Width SD 42.8 fl (35.1-43.9); Red Blood Count 4.44 M/mm3 (4.2-5.4); White Blood Count 13.9 K/mm3 (4.4-11.0)
[2023-03-09 23:25] LABS: Glucose, Dipstick Normal (Normal); Ketone-Dipstick Negative (Negative); Leukocyte Esterase-Dipstick 100 /ul (Negative); Nitrite-Dipstick Positive (Negative); Occult Blood-Urine 250 /ul (Negative); Protein-Dipstick 100 mg/dl (Negative); Urine Bilirubin Dipstick Negative (Negative); Urine Urobilinogen Normal (Normal)
[2023-03-09 23:39] LABS: Color, Urine Red (Yellow); Urine Clarity Sl Cloudy (Clear)
[2023-03-09 23:40] LABS: Red Blood Cells-Urine > 100 SEEN /hpf (0-5); Squamous Epithelial Cells - UA 0-5 SEEN /hpf (5-10); White Blood Cells 0-5 SEEN /hpf (0-5)
[2023-03-10 02:07] VITALS: BP 133/88; PULSE 104; RESP 22; O2SAT 97
== END 2023-03-10 02:18 | disposition home or self-care (01) ==
PROVIDERS: Emergency Provider Student in an Organized Health Care Education/Training Program; PCP Physician Assistant; Visit Provider Student in an Organized Health Care Education/Training Program
DX: O20.0 Threatened abortion (principal); R10.9 Unspecified abdominal pain; Z3A.01 Less than 8 weeks gestation of pregnancy; O99.891 Other specified diseases and conditions complicating pregnancy; Z79.01 Long term (current) use of anticoagulants
CPT/HCPCS: 76817; 81001; 84702; 85025; 86900; 86901; 96361; 96374; 96375; 99283; J7030; A4216; J2405

== ENCOUNTER → 2023-03-15 | Outpatient (CLI) | payer BC, SELFPAY ==
[2023-03-15 11:26] LABS: Estradiol 485.6 pg/mL
[2023-03-15 11:27] LABS: Progesterone Level 53.83 ng/mL (See Comment)
== END | disposition home or self-care (01) ==
LOC: LAB 10:42
PROVIDERS: PCP Physician Assistant; Referring Provider Obstetrics & Gynecology Reproductive Endocrinology; Visit Provider Obstetrics & Gynecology Reproductive Endocrinology
DX: Z32.01 Encounter for pregnancy test, result positive (principal)
CPT/HCPCS: 36415; 82670; 84144; 84702

== ENCOUNTER 2023-10-25 07:25 | Inpatient (IN) | payer BC, SELFPAY ==
[2023-10-25] VITALS (50 sets, daily range): BP systolic 80–148; BP diastolic 49–107; PULSE 67–123; RESP 14–16; TEMP 36.2–37.1; O2SAT 94; BMI 42.0
[2023-10-25] MEDS: Lactated Ringers 1,000 ML 50 ML IV (07:35)
[2023-10-25 07:57] LABS: Absolute Lymphocyte Count 2.05 X10^3/uL (0.83-4.51); Absolute Neutrophil Count 8.6 X10^3/uL (2.0-7.7); Basophil# 0.05 X10^3/uL; Basophil% 0.4 % (0-1); Eosinophil# 0.06 X10^3/uL; Eosinophils% 0.5 % (0-5); Hematocrit 34.5 % (37-47); Lymphocyte # 2.05 X10^3/ul (0.83-4.51); Lymphocyte % 17.4 % (19-41); Mean Corp Hgb Conc 31.9 g/dL (32-36); Mean Corpuscular Hgb 25.2 pg (27.0-32.0); Mean Corpuscular Volume 79.1 fL (81-99); Mean Platelet Vol. 11.5 fl (6.2-12.0); Monocyte# 0.91 X10^3/uL; Monocyte% 7.7 % (0-10); NRBC Flagged by Analyzer 0 % (0-5); Neutrophil # 8.58 X10^3/uL (2.7-7.7); Neutrophil % 72.6 % (47-70); Platelet Count 247 K/mm3 (150-450); RBC Distribution Width CV 13.9 % (11.6-14.6); RBC Distribution Width SD 39.8 fl (35.1-43.9); Red Blood Count 4.36 M/mm3 (4.2-5.4); White Blood Count 11.8 K/mm3 (4.4-11.0)
[2023-10-25] MEDS: Oxytocin 15 Units/NS 250ml 15 UNITS/250 ML IV.SOLN 2 UNITS IV (08:07)
[2023-10-25 08:36] LABS: Syphilis Antibodies Non-reactive
[2023-10-25] MEDS: CHLORHEXIDINE GLUC 2% CLOTH 1 EACH TOWELETTE TOPICAL (09:00)
[2023-10-25] MEDS: LACTATED RINGERS 500 ML 999 ML IV ×3 (11:10→13:17)
[2023-10-25] MEDS: fentaNYL-bupivacaine (epidural) 100 ML BAG EPIDURAL (12:24)
[2023-10-25] MEDS: Lactated Ringers 1,000 ML 200 ML IV (17:01)
--- NOTE | 2023-10-25 17:48 | PCM.HP.OB ---
HPI - General General Date of Admission: 10/25/23 Date of Service: 10/25/23 Chief Complaint: induction of labor HPI Narrative KACI SHIRLEY, is a 28 F who presents for scheduled elective induction of labor. She is a at 39 week gestation. She offers no complaints. No FARR, vision changes, ctx, vb, lof. Good FM. PFSH PFSH Medical History (Updated 10/25/23 @ 17:[address] Stacia Sethi, DO) Dysmenorrhea Gastric reflux Heartburn Hypothyroidism Infertility Infertility Non-smoker PCOS (polycystic ovarian syndrome) hemorrhage Wears contact lenses Wears glasses Home Medications famotidine 10 mg tablet (Acid Controller) 10 mg PO DAILY heartburn 10/25/23 [History Last Taken 10/24/23 12:38 10 mg] Allergy/AdvReac Type Severity Reaction Status Date / Time adhesive Allergy Intermediate Swelling Verified 10/25/23 11:34 amoxicillin Allergy Hives Verified 10/25/23 11:34 Surgical History History of abdominal surgery History of myringotomy History of surgery Hx of colonoscopy Hx of dilation and curettage Hx of LASIK Hx of pelvic surgery Social History Smoking Status: Never smoker History 2 Elective abortions Hx Para 1 Spontaneous abortions Hx # Term Pregnancies Ectopic pregnancies Hx # Pregnancies Multiple births # of living children 1 Past Pregnancies Del. Date Name GA/Weeks Outcome Route Bth Weight Infant Gen Labor Lgth Anesthesia Del Locatn Provider FOB Unknown 7 spontaneous [place] NST FHR Rate Baby A Baseline: 140 Variability:: Moderate Accelerations:: 15 x 15 Decelerations:: None NST Reactive:: Yes FHR Category:: Category I Uterine Activity:: no ctx's on admission Vital Signs Vital Signs Vital Signs: 10/25/23 09:33 10/25/23 09:33 10/25/23 09:33 Temperature Temperature Source Temporal Pulse Rate 94 Respiratory Rate Blood Pressure 121/78 H BP Systolic 121 BP Diastolic 78 10/25/23 09:33 10/25/23 09:33 10/25/23 10:00 Temperature 97.3 F L Temperature Source Temporal Pulse Rate Respiratory Rate 16 Blood Pressure BP Systolic BP Diastolic 10/25/23 10:00 10/25/23 10:00 10/25/23 11:15 Temperature 97.1 F L Temperature Source Temporal Pulse Rate Respiratory Rate 16 Blood Pressure BP Systolic BP Diastolic 10/25/23 11:15 10/25/23 11:15 10/25/23 11:32 Temperature 97.5 F L Temperature Source Pulse Rate Respiratory Rate 16 Blood Pressure 131/79 H BP Systolic 131 BP Diastolic 79 10/25/23 11:32 10/25/23 11:41 10/25/23 11:41 Temperature Temperature Source Temporal Pulse Rate 97 Respiratory Rate 16 Blood Pressure BP Systolic BP Diastolic 10/25/23 11:41 10/25/23 12:04 10/25/23 12:04 Temperature 97.4 F L Temperature Source Pulse Rate 105 H Respiratory Rate Blood Pressure 141/89 H BP Systolic 141 BP Diastolic 89 10/25/23 12:11 10/25/23 12:11 10/25/23 12:14 Temperature 98.1 F Temperature Source Temporal Pulse Rate Respiratory Rate Blood Pressure 134/74 H BP Systolic 134 BP Diastolic 74 10/25/23 12:14 10/25/23 12:24 10/25/23 12:24 Temperature Temperature Source Pulse Rate 96 98 Respiratory Rate Blood Pressure 112/65 BP Systolic 112 BP Diastolic 65 10/25/23 12:29 10/25/23 12:29 10/25/23 12:34 Temperature Temperature Source Pulse Rate 88 Respiratory Rate Blood Pressure 113/62 114/67 BP Systolic 113 114 BP Diastolic 62 67 10/25/23 12:34 10/25/23 12:39 10/25/23 12:39 Temperature Temperature Source Pulse Rate 94 87 Respiratory Rate Blood Pressure 105/58 L BP Systolic 105 BP Diastolic 58 10/25/23 12:40 10/25/23 12:40 10/25/23 12:30 Temperature Temperature Source Pulse Rate 86 Respiratory Rate 16 Blood Pressure 113/64 BP Systolic 113 BP Diastolic 64 10/25/23 12:23 10/25/23 12:39 10/25/23 12:35 Temperature Temperature Source Pulse Rate Respiratory Rate 16 16 16 Blood Pressure BP Systolic BP Diastolic 10/25/23 12:45 10/25/23 12:45 10/25/23 12:51 Temperature Temperature Source Pulse Rate 76 Respiratory Rate Blood Pressure 93/49 L 80/50 L BP Systolic 93 80 BP Diastolic 49 50 10/25/23 12:51 10/25/23 12:54 10/25/23 12:54 Temperature Temperature Source Pulse Rate 67 82 Respiratory Rate Blood Pressure 92/52 L BP Systolic 92 BP Diastolic 52 10/25/23 12:45 10/25/23 12:57 10/25/23 12:50 Temperature Temperature Source Temporal Pulse Rate Respiratory Rate 16 16 Blood Pressure BP Systolic BP Diastolic 10/25/23 12:57 10/25/23 12:59 10/25/23 12:59 Temperature 97.6 F L Temperature Source Pulse Rate 81 Respiratory Rate Blood Pressure 90/55 L BP Systolic 90 BP Diastolic 55 10/25/23 13:05 10/25/23 13:05 10/25/23 13:10 Temperature Temperature Source Pulse Rate 84 Respiratory Rate Blood Pressure 92/55 L 86/50 L BP Systolic 92 86 BP Diastolic 55 50 10/25/23 13:10 10/25/23 13:25 10/25/23 13:25 Temperature Temperature Source Pulse Rate 76 74 Respiratory Rate Blood Pressure 95/55 L BP Systolic 95 BP Diastolic 55 10/25/23 13:40 10/25/23 13:40 10/25/23 13:49 Temperature Temperature Source Pulse Rate 88 Respiratory Rate Blood Pressure 106/63 112/78 BP Systolic 106 112 BP Diastolic 63 78 10/25/23 13:49 10/25/23 14:04 10/25/23 14:04 Temperature Temperature Source Pulse Rate 85 89 Respiratory Rate Blood Pressure 118/78 BP Systolic 118 BP Diastolic 78 10/25/23 14:19 10/25/23 14:19 10/25/23 14:27 Temperature Temperature Source Temporal Pulse Rate 91 Respiratory Rate Blood Pressure 115/76 BP Systolic 115 BP Diastolic 76 10/25/23 14:27 10/25/23 14:27 10/25/23 14:35 Temperature 97.7 F L Temperature Source Pulse Rate Respiratory Rate 16 Blood Pressure 122/67 H BP Systolic 122 BP Diastolic 67 10/25/23 14:35 10/25/23 14:49 10/25/23 14:49 Temperature Temperature Source Pulse Rate 101 H 100 Respiratory Rate Blood Pressure 123/74 H BP Systolic 123 BP Diastolic 74 10/25/23 15:05 10/25/23 15:05 10/25/23 15:11 Temperature Temperature Source Temporal Pulse Rate 95 Respiratory Rate Blood Pressure 113/57 L BP Systolic 113 BP Diastolic 57 10/25/23 15:11 10/25/23 15:11 10/25/23 15:19 Temperature 97.3 F L Temperature Source Pulse Rate Respiratory Rate 16 Blood Pressure 94/57 L BP Systolic 94 BP Diastolic 57 10/25/23 15:19 10/25/23 15:34 10/25/23 15:34 Temperature Temperature Source Pulse Rate 98 95 Respiratory Rate Blood Pressure 138/73 H BP Systolic 138 BP Diastolic 73 10/25/23 15:59 10/25/23 15:59 10/25/23 15:59 Temperature 97.9 F Temperature Source Temporal Pulse Rate Respiratory Rate 16 Blood Pressure BP Systolic BP Diastolic 10/25/23 16:35 10/25/23 16:35 10/25/23 17:05 Temperature Temperature Source Pulse Rate 91 Respiratory Rate Blood Pressure 131/77 H 139/79 H BP Systolic 131 139 BP Diastolic 77 79 10/25/23 17:05 10/25/23 17:06 10/25/23 17:06 Temperature Temperature Source Temporal Pulse Rate 100 Respiratory Rate 16 Blood Pressure BP Systolic BP Diastolic 10/25/23 17:06 10/25/23 17:36 10/25/23 17:36 Temperature 97.8 F Temperature Source Pulse Rate 123 H Respiratory Rate Blood Pressure 141/107 H BP Systolic 141 BP Diastolic 107 Weight Weight: 293 lb Body Mass Index (BMI) 42.0 Labs Labs Labs: Blood Type O POSITIVE Antibody Screen NEGATIVE Hct 34.5 % (37-47) L Hgb 11.0 g/dL (12.0-15.0) L Obstetrics Ultrasound Syphilis Total Ab Non-reactive VZV IgG Antibody 1343 index (Immune >165) Rubella IgG Antibody Reactive (Nonreactive) Hep Bs Antigen Non-Reactive (Nonreactive) Hepatitis C Antibody Non-Reactive (Nonreactive) Chlamydia DNA (JA) Negative (Negative) N.gonorrhoeae DNA (JA) Negative (Negative) HIV 1&2 Antibody Non-Reactive (Nonreactive) Glucose 1 Hr 50 gm 91 mg/dL (70-140) Rhogam given: No Assessment & Plan (1) Elective induction of labor planned: PLAN: Patient requests elective IOL. Intracervical hills unable to be placed on admission. Bedside TAUS performed confirming vertex presentation. GBS negative. Start Pitocin per protocol. Plans epidural for pain control. Pelvis adequate and EFW expected to be < 4500 g. (2) Obesity affecting : (3) conceived using assisted reproductive technology (ART): (4) History of hemorrhage: (5) 39 weeks gestation of :
[2023-10-25] MEDS: Oxytocin 10 UNITS/ML Vial IM (18:21)
[2023-10-25] MEDS: Oxytocin 15 Units/NS 250ml 15 UNITS/250 ML IV.SOLN 334 UNITS IV (18:45)
--- NOTE | 2023-10-25 19:00 | PCM.OPRPT ---
Problems Associated Problem List Diagnoses (1) Elective induction of labor planned: (2) (spontaneous vaginal delivery): (3) Obesity affecting : (4) conceived using assisted reproductive technology (ART): Report of Operation Date of Procedure: 10/25/23 Pre-Operative Diagnosis: 39 week gestation, single IUP, by ART, obesity, elective induction of labor Post-Operative Diagnosis: As above Surgery/Procedure Performed:: Description of Surgical Findings:: VFI in NICKY position. Apgars 8, 9. Normal appearing placenta with 3 VC Surgeon: Stacia Sethi charge authorizer: None Type of Anesthesia: Epidural Special Medications: None Specimen's removed: Placenta Drains: None Estimated Blood Loss (mL): 100 Fluids Replaced: N/A Description of Procedure: Patient complete and pushing. Head of delivered in right occiput anterior position. Anterior shoulder delivered with gentle downward traction followed by the posterior shoulder and body of the . A vigorous viable female infant was delivered without any excessive traction, force, or delay. The vigorous viable female was placed on maternal abdomen. The cord was clamped and cut after a 60 second delay by the father of the baby. Cord blood was obtained. The placenta delivered with fundal massage. The uterus was explored and a piece of placental tissue was noted at the lower uterine segment and this placental tissue was easily removed. The uterus was explored 1 additional time and noted to be clear, with no retained placenta or membranes. Fundus firm and bleeding hemostatic. No lacerations. Sponge count was correct. Vaginal sweep was performed. Grafts/Implants Used: None Complications None Admit VTE Documentation VTE Present on Admission: No
[2023-10-25] MEDS: Ibuprofen 600 MG Tablet PO (20:20)
[2023-10-26] MEDS: Ibuprofen 600 MG Tablet PO ×2 (08:29→15:59)
[2023-10-26 08:32] VITALS: BP 132/89; PULSE 82; RESP 18; TEMP 36.4; O2SAT 97
--- NOTE | 2023-10-26 11:14 | PCM.PN.OB ---
Subjective Subjective Denies complaints Objective Data Objective Data Vital Signs: Vital Signs Temp Pulse Resp BP Pulse Ox O2 Del Method 97.6 F L 82 18 132/89 H 97 Room Air 10/26/23 08:32 10/26/23 08:32 10/26/23 08:32 10/26/23 08:32 10/26/23 08:32 10/26/23 08:32 Oxygen Delivery Method Room Air Weight: 293 lb Body Mass Index (BMI) 42.0 Intake & Output: Intake and Output for Last 24 Hours 10/24/23 10/25/23 10/26/23 23:59 23:59 23:59 Intake Total 3240.00 / 3240.00 Output Total 1750 / 1750 Balance 1490.00 / 1490.00 Lab / Micro Data 10/25/23 07:35 Physical Exam Const alert, oriented x3 and no apparent distress HEENT normocephalic GI soft to palpation, non-tender and non-distended GI Narrative: fundus firm, mid & below umbilicus Extremity normal to inspection and no calf tenderness Assessment & Plan (1) (spontaneous vaginal delivery): COMMENT: PPD#1 PLAN: Plan Routine care
[2023-10-26 12:51] VITALS: BP 133/95; PULSE 84; RESP 18; TEMP 36.4
[2023-10-26 15:55] VITALS: BP 136/88; PULSE 82; RESP 18; TEMP 36.7
[2023-10-26 20:09] VITALS: BP 125/82; PULSE 83; RESP 16; TEMP 36.7; O2SAT 98
[2023-10-27 03:03] VITALS: BP 124/97; PULSE 71; RESP 16; TEMP 36.8; O2SAT 98
[2023-10-27 09:31] VITALS: BP 122/77; PULSE 91; RESP 14; O2SAT 96
--- NOTE | 2023-10-27 09:58 | PCM.PN.OB ---
Subjective Subjective Denies complaints Objective Data Objective Data Vital Signs: Vital Signs Temp Pulse Resp BP Pulse Ox O2 Del Method 98.2 F 91 14 122/77 H 96 Room Air 10/27/23 03:03 10/27/23 09:31 10/27/23 09:31 10/27/23 09:31 10/27/23 09:31 10/27/23 09:31 Oxygen Delivery Method Room Air Weight: 293 lb Body Mass Index (BMI) 42.0 Intake & Output: Intake and Output for Last 24 Hours 10/25/23 10/26/23 10/27/23 23:59 23:59 23:59 Intake Total 3240.00 / 3240.00 Output Total 1750 / 1750 Balance 1490.00 / 1490.00 Lab / Micro Data 10/25/23 07:35 Physical Exam Const alert, oriented x3 and no apparent distress HEENT normocephalic GI soft to palpation, non-tender and non-distended GI Narrative: fundus firm, mid & below umbilicus Extremity normal to inspection and no calf tenderness Assessment & Plan (1) (spontaneous vaginal delivery): COMMENT: PPD#2 PLAN: Plan D/c home
--- NOTE | 2023-10-27 09:59 | PCM.DC.SUM ---
Providers Date of Admission: 10/25/23 Primary Care Physician: SCHUYLER Diez Reason For Visit: VAGINAL DELIVERY Diagnosis Discharge Diagnosis (1) (spontaneous vaginal delivery): Status: Acute Code(s): O80 - Encounter for full-term uncomplicated delivery Plan D/c home Medications at Discharge Home Medications famotidine 10 mg tablet (Acid Controller) 10 mg PO DAILY heartburn 10/25/23 Hospital Course Operations None Summary of Care Provided Minutes Spent on Discharge: 15 Physical Exam Const alert, oriented x3 and no apparent distress HEENT normocephalic GI soft to palpation, non-tender and non-distended GI Narrative: fundus firm, mid & below umbilicus Extremity normal to inspection and no calf tenderness Weight / BMI Weight Weight: 293 lb Body Mass Index (BMI) 42.0 ABG / Lab / Microbiology Data 10/25/23 07:35 D/C Instructions Discharge Diet: No restrictions Discharge Activity: May Shower May resume sexual activity in: 6 weeks Weight Bearing Status: Weight bearing as tolerated Call your doctor if you observe: Fever of 101 or Higher, Coldness, Increased Pain, Change in Color, Inability to urinate, Inability to have a bowel movement, Using more than 1 pad per hour, Shortness of breath, Dizziness, Fainting spells, Chest pain, Increased palpitations (irregular heartbeat), Calf discomfort and Uncontrolled pain Please Follow Up With: Stacia Sethi DO When: Follow up in 2 and 6 weeks for visits. Meaningful Use Info Meaningful Use Meaningful Use Diagnoses (Choose all that apply): None applicable Ischemic Stroke Statin Dosing Therapy Reference: STATIN DOSE THERAPY REFERENCE: * Patients > 75 years receive moderate or high dose statin therapy. * Patients 75 years or YOUNGER should receive HIGH intensity statin dose unless contraindicated. You will be required to document reason for non-treatment if statin daily dose does not meet guidelines. HIGH DOSE STATIN THERAPY DAILY Atorvastatin > than or = to 40 mg Rosuvastatin > than or = to 20 mg Amlodipine + Atorvastatin > than or = to 2.5/40 mg Ezetimibe + Simvastatin 10/80 mg Simvastatin 80mg Discharge Plan Admission Admit Date/Time: 10/25/23 07:25 Primary Reason for Your Visit: Vaginal delivery Attending Provider: Stacia Sethi Primary Care Provider: Ericka Gresham Discharge Orders/Prescriptions Prescriptions: No Action famotidine [Acid Controller] 10 mg tablet 10 mg PO DAILY Rx Instructions: taken 1-2 tablets daily Referrals / Follow Up: Ericka Gresham PA [Primary Care Provider] - Disposition Disposition (needs filled in before D/C Order can be placed): Home, Self Care
== END 2023-10-27 10:40 | disposition home or self-care (01) | DRG 807 ==
PROVIDERS: Obstetrics & Gynecology; Admitting Provider Obstetrics & Gynecology; PCP Physician Assistant; Referring Provider Obstetrics & Gynecology; Visit Provider Obstetrics & Gynecology
DX: O80 Encounter for full-term uncomplicated delivery (principal); Z37.0 Single live birth; Z3A.39 39 weeks gestation of pregnancy; Z87.59 Personal history of other complications of pregnancy, childbirth and the puerperium
CPT/HCPCS: 59025; 59050; 85025; 86780; 86850; 86900; 86901; 99221; J7120; G0378

== ENCOUNTER → 2024-08-05 | Outpatient (CLI) | payer BC, SELFPAY ==
[2024-08-05 10:17] LABS: Hemoglobin 14.3 g/dL (12.0-15.0); Mean Corpuscular Hgb 28.4 pg (27.0-32.0); Mean Corpuscular Volume 83.5 fL (81-99); Mean Platelet Vol. 9.9 fl (6.2-12.0); Platelet Count 326 K/mm3 (150-450); RBC Distribution Width CV 13.2 % (11.6-14.6); RBC Distribution Width SD 40.4 fl (35.1-43.9); Red Blood Count 5.03 M/mm3 (4.2-5.4); White Blood Count 6.4 K/mm3 (4.4-11.0)
[2024-08-05 10:56] LABS: Hemoglobin A1c 4.8 % (3.8-5.6)
[2024-08-05 10:57] LABS: ALB/GLOB Ratio 0.9 RATIO (0.9-2.4); AST(SGOT) 24 U/L (15-37); Alanine Aminotransfer ALT/SGPT 26 U/L (13-56); Albumin, Serum 3.7 g/dL (3.2-5.0); Alkaline Phosphatase 73 U/L (45-117); Anion Gap 7 (5-15); BUN 17 mg/dL (7-18); Calcium,Total 9.3 mg/dL (8.5-10.1); Chloride 108 mmol/L (98-107); Creatinine, Serum 0.77 mg/dL (0.55-1.02); EST Glomerular Filtration Rate 93 mL/min (>60); Est Glom Filt Rate - Afr Amer 112 mL/min (>60); Glucose 89 mg/dL (74-106); Protein, Total 7.7 g/dL (6.4-8.2); Sodium Level 138 mmol/L (136-145)
[2024-08-05 11:36] LABS: HIV - WCH Non-Reactive (Nonreactive); Hepatitis B Surface Antigen Non-Reactive (Nonreactive); Hepatitis C Antibody Non-Reactive (Nonreactive); Rubella IgG Reactive (Nonreactive); Syphilis Antibodies Non-reactive; T3 Total - Triiodothyronine 0.99 ng/mL (0.6-1.81); Vitamin D,25 Hydroxy 14.4 ng/mL
[2024-08-06 14:12] LABS: T4 Free Direct 0.82 ng/dL (0.76-1.46)
[2024-08-10 17:07] LABS: Anti-Mullerian Hormone,Serum 17.2 ng/mL (.); PROLACTIN 4.2 ng/mL (4.8-33.4); V-Zoster IgG (Immunity) Reactive (Non Reactive)
== END | disposition home or self-care (01) ==
LOC: LAB 09:36
PROVIDERS: PCP Physician Assistant; Referring Provider Obstetrics & Gynecology Reproductive Endocrinology; Visit Provider Obstetrics & Gynecology Reproductive Endocrinology
DX: Z31.41 Encounter for fertility testing (principal)
CPT/HCPCS: 36415; 80053; 82306; 83036; 83516; 84146; 84403; 84436; 84439; 84443; 84480; 85027; 86703; 86762; 86780; 86787; 86803; 87340

== ENCOUNTER → 2024-10-27 | Outpatient (CLI) | payer BC, SELFPAY ==
[2024-10-27 12:06] LABS: hCG Titer Quant., Serum < 1 mIU/mL (<9 non-preg)
[2024-10-27 12:09] LABS: Estradiol 55.6 pg/mL; Follicle Stimulating Hormone 5.4 mIU/mL; Luteinizing Hormone 19.4 mIU/mL
[2024-10-28 04:07] LABS: PROGESTERONE 0.2 ng/mL (.)
== END | disposition home or self-care (01) ==
LOC: LAB 10:38
PROVIDERS: PCP Physician Assistant; Referring Provider Obstetrics & Gynecology Reproductive Endocrinology; Visit Provider Obstetrics & Gynecology Reproductive Endocrinology
DX: Z31.83 Encounter for assisted reproductive fertility procedure cycle (principal)
CPT/HCPCS: 36415; 82670; 83001; 83002; 84144; 84443; 84702

== ENCOUNTER → 2024-11-20 | Outpatient (CLI) | payer BC, SELFPAY ==
[2024-11-20 11:24] LABS: hCG Titer Quant., Serum 14 mIU/mL (<9 non-preg)
[2024-11-22 08:08] LABS: PROGESTERONE 22.8 ng/mL (.)
== END | disposition home or self-care (01) ==
LOC: LAB 09:45
PROVIDERS: PCP Physician Assistant; Referring Provider Obstetrics & Gynecology Reproductive Endocrinology; Visit Provider Obstetrics & Gynecology Reproductive Endocrinology
DX: Z32.00 Encounter for pregnancy test, result unknown (principal)
CPT/HCPCS: 36415; 84144; 84702

== ENCOUNTER → 2024-11-24 | Outpatient (CLI) | payer BC, SELFPAY ==
[2024-11-24 11:50] LABS: hCG Titer Quant., Serum 40 mIU/mL (<9 non-preg)
[2024-11-25 04:07] LABS: PROGESTERONE 34.8 ng/mL (.)
== END | disposition home or self-care (01) ==
LOC: LAB 09:58
PROVIDERS: PCP Physician Assistant; Referring Provider Obstetrics & Gynecology Reproductive Endocrinology; Visit Provider Obstetrics & Gynecology Reproductive Endocrinology
DX: Z32.01 Encounter for pregnancy test, result positive (principal)
CPT/HCPCS: 36415; 82670; 84144; 84443; 84702

== ENCOUNTER → 2024-11-27 | Outpatient (CLI) | payer BC, SELFPAY ==
[2024-11-27 11:22] LABS: hCG Titer Quant., Serum 133 mIU/mL (<9 non-preg)
== END | disposition home or self-care (01) ==
LOC: LAB 10:00
PROVIDERS: PCP Physician Assistant; Referring Provider Obstetrics & Gynecology Reproductive Endocrinology; Visit Provider Obstetrics & Gynecology Reproductive Endocrinology
DX: Z32.01 Encounter for pregnancy test, result positive (principal)
CPT/HCPCS: 36415; 82670; 84144; 84702

== ENCOUNTER → 2024-11-30 | Outpatient (CLI) | payer BC, SELFPAY ==
[2024-11-30 12:07] LABS: hCG Titer Quant., Serum 290 mIU/mL (<9 non-preg)
[2024-12-01 05:07] LABS: PROGESTERONE 31.4 ng/mL (.)
== END | disposition home or self-care (01) ==
LOC: LAB 09:37
PROVIDERS: PCP Physician Assistant; Referring Provider Obstetrics & Gynecology Reproductive Endocrinology; Visit Provider Obstetrics & Gynecology Reproductive Endocrinology
DX: O09.00 Supervision of pregnancy with history of infertility, unspecified trimester (principal); Z3A.00 Weeks of gestation of pregnancy not specified
CPT/HCPCS: 36415; 82670; 84144; 84702

== ENCOUNTER → 2024-12-04 | Outpatient (CLI) | payer BC, SELFPAY ==
[2024-12-04 13:45] LABS: hCG Titer Quant., Serum 641 mIU/mL (<9 non-preg)
[2024-12-05 06:08] LABS: PROGESTERONE 37.4 ng/mL (.)
== END | disposition home or self-care (01) ==
LOC: LAB 10:10
PROVIDERS: PCP Physician Assistant; Referring Provider Obstetrics & Gynecology Reproductive Endocrinology; Visit Provider Obstetrics & Gynecology Reproductive Endocrinology
DX: O09.00 Supervision of pregnancy with history of infertility, unspecified trimester (principal); Z3A.00 Weeks of gestation of pregnancy not specified
CPT/HCPCS: 36415; 82670; 84144; 84702

== ENCOUNTER → 2024-12-28 | Outpatient (CLI) | payer BC, SELFPAY ==
[2024-12-28 13:29] LABS: hCG Titer Quant., Serum 68 mIU/mL (<9 non-preg)
== END | disposition home or self-care (01) ==
LOC: LAB 12:06
PROVIDERS: PCP Physician Assistant; Referring Provider Obstetrics & Gynecology Reproductive Endocrinology; Visit Provider Obstetrics & Gynecology Reproductive Endocrinology
DX: O02.1 Missed abortion (principal)
CPT/HCPCS: 36415; 84702

== ENCOUNTER → 2025-01-04 | Outpatient (CLI) | payer BC, SELFPAY ==
[2025-01-04 11:50] LABS: hCG Titer Quant., Serum 4 mIU/mL (<9 non-preg)
== END | disposition home or self-care (01) ==
PROVIDERS: PCP Physician Assistant; Referring Provider Obstetrics & Gynecology Reproductive Endocrinology; Visit Provider Obstetrics & Gynecology Reproductive Endocrinology
DX: O02.1 Missed abortion (principal)
CPT/HCPCS: 36415; 84702

== ENCOUNTER → 2025-03-29 | Outpatient (CLI) | payer BC, SELFPAY ==
--- OUTSIDE RECORDS SUMMARY | 2025-03-19 09:11 | XMS RPT_ITS ---
Author Name Auto Generated Organization [facility] Care Team Providers Care Personal Service Workers Name Role Phone FABIOLA GENAO MD Attending Unavailable SCALES PA, KHUSHBOO Primary Care Unavailable FABIOLA GENAO MD Attending Unavailable SCALES PA, KHUSHBOO Primary Care Unavailable FABIOLA GENAO MD Attending Unavailable YORDY PA, KHUSHBOO Primary Care Unavailable FABIOLA GENAO MD Attending Unavailable YORDY PA, KHUSHBOO Primary Care Unavailable FABIOLA GENAO MD Attending Unavailable YORDY PA, KHUSHBOO Primary Care Unavailable FABIOLA GENAO MD Attending Unavailable YORDY PA, KHUSHBOO Primary Care Unavailable FABIOLA GENAO MD Attending Unavailable YORDY PA, KHUSHBOO Primary Care Unavailable FABIOLA GENAO MD Attending Unavailable SCALES PA, KHUSHBOO Primary Care Unavailable TAMMI SETHI Attending Unavailable PROBLEMS DATE TYPE CONDITION / CODE ATTENDING STATUS [facility] 12/04/2024 Active Supervision of p regnancy with history of infertility, first trimester (HCC) / O09.01(ICD-10) NA Active [facility] PROCEDURES No Procedure Records Found RESULTS PROG Collected: 03/19/2025 9:18 AM Status: F Source: [facility] TYPE CODE TESTS RESULT OUT OF RANGE REFERENCE UNITS LAB PROG(LOINC) Progesterone Level 0.2 ng/mL Result Comment: Adult Female Progesterone Reference Ranges: Follicular phase <0.21 - 1.40 ng/mL Luteal phase 3.34 - 25.56 ng/mL Mid-Luteal phase 4.44 - 28.03 ng/mL Postmenopausal <0.21 - 0.73 ng/ml Female: First trimester 11.22 - 90.00 ng/ml Second trimester 25.55 - 89.40 ng/ml Third trimester 48.40 - 422.50 ng/ml Performed By: #### PROG #### [place] [address] E2 Collected: 03/17/2025 8:38 AM Status: F [facility] TYPE CODE TESTS RESULT OUT OF RANGE REFERENCE UNITS LAB E2(LOINC) Estradiol Level 565.04 pg/mL Result Comment: Adult Female E2 Reference Ranges: Follicular phase 19.5 - 144.2 pg/mL Midcycle 63.9 - 356.7 pg/mL Luteal phase 55.8 - 214.2 pg/mL Post menopausal 0 - 33.2 pg/mL Performed By: #### E2, LH, P KVNG #### [place] [address] LH Collected: 8:38 AM Status: F Source: Surve[employer]al TYPE CODE TESTS RESULT OUT OF RANGE REFERENCE UNITS LAB LH(LOINC) LH 5.2 mIU/mL Result Comment: Note - New Reference Range in effect 20Adult Female LH Reference Ranges: Follicular phase 1.9 - 12.5 mIU/mL Midcycle phase 8.7 - 76.3 mIU/mL Luteal phase 0.5 - 16.9 mIU/mL Post menopausal 5.0 - 55.2 mIU/mL Performed By: #### E2, LH, P KVNG #### [address] [address] PROG Collected: 03/17/2025 8:38 AM Status: F Source: Myrl TYPE CODE TESTS RESULT OUT OF RANGE REFERENCE UNITS LAB PROG(LOINC) Progesterone Level 0.2 ng/mL Result Comment: Adult Female Progesterone Reference Ranges: Follicular phase <0.21 - 1.40 ng/mL Luteal phase 3.34 - 25.56 ng/mL Mid-Luteal phase 4.44 - 28.03 ng/mL Postmenopausal <0.21 - 0.73 ng/ml Female: First trimester 11.22 - 90.00 ng/ml Second trimester 25.55 - 89.40 ng/ml Third trimester 48.40 - 422.50 ng/ml Performed By: #### E2, LH, P KVNG #### [place] [address] E2 Collected: 03/15/2025 8:44 AM Status: F Source: Myrl TYPE CODE TESTS RESULT OUT OF RANGE REFERENCE UNITS LAB E2(LOINC) Estradiol Level 401.39 pg/mL Result Comment: Adult Female E2 Reference Ranges: Follicular phase 19.5 - 144.2 pg/mL Midcycle 63.9 - 356.7 pg/mL Luteal phase 55.8 - 214.2 pg/mL Post menopausal 0 - 33.2 pg/mL Performed By: #### LH, PROG, E2 #### [address] [address] LH Collected: 8:44 AM Status: F Source: Myrl TYPE CODE TESTS RESULT OUT OF RANGE REFERENCE UNITS LAB LH(LOINC) LH 4.0 mIU/mL Result Comment: Note - New Reference Range in effect 20 Adult Female LH Reference Ranges: Follicular phase 1.9 - 12.5 mIU/mL Midcycle phase 8.7 - 76.3 mIU/mL Luteal phase 0.5 - 16.9 mIU/mL Post menopausal 5.0 - 55.2 mIU/mL Performed By: #### LH, PROG, E2 #### [place] [id number] PROG Collected: 03/15/2025 8:44 AM Status: F Source: SurveypalN TYPE CODE TESTS RESULT OUT OF RANGE REFERENCE UNITS LAB PROG(LOINC) Progesterone Level 0.2 ng/mL Result Comment: Adult Female Progesterone Reference Ranges: Follicular phase <0.21 - 1.40 ng/mL Luteal phase 3.34 - 25.56 ng/mL Mid-Luteal phase 4.44 - 28.03 ng/mL Postmenopausal <0.21 - 0.73 ng/ml Female: First trimester 11.22 - 90.00 ng/ml Second trimester 25.55 - 89.40 ng/ml Third trimester 48.40 - 422.50 ng/ml Performed By: #### LH, PROG, E2 #### [address] [address] E2 Collected: 03/12/2025 8:24 AM Status: F Source: SurveypalN TYPE CODE TESTS RESULT OUT OF RANGE REFERENCE UNITS LAB E2(LOINC) Estradiol Level 203.78 pg/mL Result Comment: Adult Female E2 Reference Ranges: Follicular phase 19.5 - 144.2 pg/mL Midcycle 63.9 - 356.7 pg/mL Luteal phase 55.8 - 214.2 pg/mL Post menopausal 0 - 33.2 pg/mL Performed By: #### LH, PROG, E2 #### [address] [address] LH Collected: 8:24 AM Status: F Source: SurveypalN TYPE CODE TESTS RESULT OUT OF RANGE REFERENCE UNITS LAB LH(LOINC) LH 4.6 mIU/mL Result Comment: Note - New Reference Range in effect 20Adult Female LH Reference Ranges: Follicular phase 1.9 - 12.5 mIU/mL Midcycle phase 8.7 - 76.3 mIU/mL Luteal phase 0.5 - 16.9 mIU/mL Post menopausal 5.0 - 55.2 mIU/mL Performed By: #### LH, PROG, E2 #### [address] [address] PROG Collected: 03/12/2025 8:24 AM Status: F Source: [employer] TYPE CODE TESTS RESULT OUT OF RANGE REFERENCE UNITS LAB PROG(LOINC) Progesterone Level 0.3 ng/mL Result Comment: Adult Female Progesterone Reference Ranges: Follicular phase <0.21 - 1.40 ng/mL Luteal phase 3.34 - 25.56 ng/mL Mid-Luteal phase 4.44 - 28.03 ng/mL Postmenopausal <0.21 - 0.73 ng/ml Female: First trimester 11.22 - 90.00 ng/ml Second trimester 25.55 - 89.40 ng/ml Third trimester 48.40 - 422.50 ng/ml Performed By: #### LH, PROG, E2 #### [place] [address] TSH Collected: 8:49 AM Status: F Source: [facility] TYPE CODE TESTS RESULT OUT OF RANGE REFERENCE UNITS LAB TSH(LOINC) TSH 2.880 0.550-4.780 mIU/mL Performed By: #### FT4, FSH, LH, PROG, FT3, TSH, E2 #### [place] [address] #### HCG #### [facility] [address] [place], [place] [address] FT4 Collected: 8:49 AM Status: F Source: Surveypal TYPE CODE TESTS RESULT OUT OF RANGE REFERENCE UNITS LAB FT4(LOINC) Free T4 1.14 0.89-1.76 ng/dL Result Comment: Note - New Reference Range in effect 20 Performed By: #### FT4, FSH, LH, PROG, FT3, TSH, E2 #### [place] [address] #### HCG #### [facility] [address] [place], [place] [address] E2 Collected: 03/05/2025 8:49 AM Status: F Source: [employer] TYPE CODE TESTS RESULT OUT OF RANGE REFERENCE UNITS LAB E2(LOINC) Estradiol Level 34.29 pg/mL Result Comment: Adult Female E2 Reference Ranges: Follicular phase 19.5 - 144.2 pg/mL Midcycle 63.9 - 356.7 pg/mL Luteal phase 55.8 - 214.2 pg/mL Post menopausal 0 - 33.2 pg/mL Performed By: #### FT4, FSH, LH, PROG, FT3, TSH, E2 #### [place] [address] #### HCG #### [facility] [address] [place], [place] [address] LH Collected: 8:49 AM Status: F Source: [facility] TYPE CODE TESTS RESULT OUT OF RANGE REFERENCE UNITS LAB LH(LOINC) LH 6.7 mIU/mL Result Comment: Note - New Reference Range in effect 20Adult Female LH Reference Ranges: Follicular phase 1.9 - 12.5 mIU/mL Midcycle phase 8.7 - 76.3 mIU/mL Luteal phase 0.5 - 16.9 mIU/mL Post menopausal 5.0 - 55.2 mIU/mL Performed By: #### FT4, FSH, LH, PROG, FT3, TSH, E2 #### [place] [address] #### HCG #### [facility] [address] [place], [place] [address] PROG Collected: 03/05/2025 8:49 AM Status: F [facility] CODE TESTS RESULT OUT OF RANGE REFERENCE UNITS LAB PROG(LOINC) Progesterone Level 0.4 ng/mL Result Comment: Adult Female Progesterone Reference Ranges: Follicular phase <0.21 - 1.40 ng/mL Luteal phase 3.34 - 25.56 ng/mL Mid-Luteal phase 4.44 - 28.03 ng/mL Postmenopausal <0.21 - 0.73 ng/ml Female: First trimester 11.22 - 90.00 ng/ml Second trimester 25.55 - 89.40 ng/ml Third trimester 48.40 - 422.50 ng/ml Performed By: #### FT4, FSH, LH, PROG, FT3, TSH, E2 #### [place] [address] #### HCG #### [facility] [address] [place], [place] [address] FSH Collected: 8:49 AM Status: F Source: [facility] TYPE CODE TESTS RESULT OUT OF RANGE REFERENCE UNITS LAB FSH(LOINC) FSH 3.1 mIU/mL Result Comment: Adult Female FSH Reference Ranges (05/24/99): Follicular phase 2.5 - 10.2 mIU/mL Midcycle phase 3.4 - 33.4 mIU/mL Luteal phase 1.5 - 9.1 mIU/mL Post menopausal 23.0 -116.3 mIU/mL Adult Male: 1.4 - 18.1 mIU/mL Performed By: #### FT4, FSH, LH, PROG, FT3, TSH, E2 #### [place] [address] #### HCG #### [facility] [address] [place], [place] [address] FT3 Collected: 8:49 AM Status: F Source: [facility] TYPE CODE TESTS RESULT OUT OF RANGE REFERENCE UNITS LAB FT3(LOINC) Free T3 3.27 2.30-4.20 pg/mL Performed By: #### FT4, FSH, LH, PROG, FT3, TSH, E2 #### [place] [address] #### HCG #### [facility] [address] [place], [place] [address] HCG Collected: 03/05/2025 8:49 AM Status: F Source: [facility] TYPE CODE TESTS RESULT OUT OF RANGE REFERENCE UNITS LAB LMP(LOINC) Date of LMP na LAB HCGQ(LOINC) hCG, quantitative <1.0 mI U/mL Performed By: #### FT4, FSH, LH, PROG, FT3, TSH, E2 #### [place] [address] #### HCG #### [facility] [address] [place], [place] [address] HCG Collected: 12/17/2024 8:22 AM Status: F Source: [facility] TYPE CODE TESTS RESULT OUT OF RANGE REFERENCE UNITS LAB LMP(LOINC) Date of LMP UNKNOWN LAB HCGQ(LOINC) hCG, quantitative 5158.9 mI U/mL Performed By: #### PROG, E2 #### [place] [address] #### HCG #### [facility] [address] [place], [place] [address] E2 Collected: 12/17/2024 8:22 AM Status: F Source: [facility] TYPE CODE TESTS RESULT OUT OF RANGE REFERENCE UNITS LAB E2(LOINC) Estradiol Level 269.53 pg/mL Result Comment: Adult Female E2 Reference Ranges: Follicular phase 19.5 - 144.2 pg/mL Midcycle 63.9 - 356.7 pg/mL Luteal phase 55.8 - 214.2 pg/mL Post menopausal 0 - 33.2 pg/mL Performed By: #### PROG, E2 #### [place] [address] #### HCG #### [facility] [address] [place], [place] [address] PROG Collected: 12/17/2024 8:22 AM Status: F Source: [facility] TYPE CODE TESTS RESULT OUT OF RANGE REFERENCE UNITS LAB PROG(LOINC) Progesterone Level 52.7 ng/mL Result Comment: Adult Female Progesterone Reference Ranges: Follicular phase <0.21 - 1.40 ng/mL Luteal phase 3.34 - 25.56 ng/mL Mid-Luteal phase 4.44 - 28.03 ng/mL Postmenopausal <0.21 - 0.73 ng/ml Female: First trimester 11.22 - 90.00 ng/ml Second trimester 25.55 - 89.40 ng/ml Third trimester 48.40 - 422.50 ng/ml Performed By: #### PROG, E2 #### [place] [address] #### HCG #### [facility] [address] [place], [place] [address] HCG Collected: 12/14/2024 10:40 AM Status: F Source: [facility] TYPE CODE TESTS RESULT OUT OF RANGE REFERENCE UNITS LAB LMP(LOINC) Date of LMP n/a LAB HCGQ(LOINC) hCG, quantitative 4074.5 mI U/mL Performed By: #### E2, PROG #### [place] [address] #### HCG #### [facility] [address] [place], [place] [address] E2 Collected: 10:40 AM Status: F Source: [facility] TYPE CODE TESTS RESULT OUT OF RANGE REFERENCE UNITS LAB E2(LOINC) Estradiol Level 225.96 pg/mL Result Comment: Adult Female E2 Reference Ranges: Follicular phase 19.5 - 144.2 pg/mL Midcycle 63.9 - 356.7 pg/mL Luteal phase 55.8 - 214.2 pg/mL Post menopausal 0 - 33.2 pg/mL Performed By: #### E2, PROG #### [place] [address] #### HCG #### [facility] [address] [place], [place] [address] PROG Collected: 12/14/2024 10:40 AM Status: F Source: [facility] TYPE CODE TESTS RESULT OUT OF RANGE REFERENCE UNITS LAB PROG(LOINC) Progesterone Level 44.3 ng/mL Result Comment: Adult Female Progesterone Reference Ranges: Follicular phase <0.21 - 1.40 ng/mL Luteal phase 3.34 - 25.56 ng/mL Mid-Luteal phase 4.44 - 28.03 ng/mL Postmenopausal <0.21 - 0.73 ng/ml Female: First trimester 11.22 - 90.00 ng/ml Second trimester 25.55 - 89.40 ng/ml Third trimester 48.40 - 422.50 ng/ml Performed By: #### E2, PROG #### [place] [address] #### HCG #### [facility] [address] [place], [place] [address] PROGRESS Observed: 12/04/2024 10:45 AM Status: COMPLETED [facility] [id number] Author: RADHA ZHENG MD Service: ? 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 Please see full report under the "Imaging" tab in [facility] for details. Radha Zheng MD CNPN Observed: 12/01/2024 12:00 AM Status: COMPLETED Source: [facility] Telephone (OBGYWM) KACI TREJO ([id number]) 1995 F Date Time Provider Department 12/01/24 TAMMI SETHI OBGYWCarter During your visit today, we recorded the following information about you: Vicky Marsh RN 12/01/2024 4:34 PM Signed [facility] ([facility])-[phone] is who Pt is seeing. Pt will send copy of order via [employer] and bring original order with her to appointment. PSS's working on figuring out how to attach outside order to scheduled US appointment on 12/04/24. NILSON Uribe Trisha, RN 12/02/2024 9:19 AM Signed Patient had embryo transfer on 11/10/24. See 12/02 [employer] message. Will discuss with PSS for 12/04 appointment. Doe Gilmore RN Allergies As of Date: 12/01/2024 Noted Allergy Reaction AMOXICILLIN 03/02/2018 11 - Vomiting DERMABOND (2-OCTYL CYANOACRYLATE) 04/02/2023 7 - Swelling Date Reviewed: 09/11/2024 Reviewed by: Christen Eduardo MA - Fully Assessed Reason for Visit: Outside US order [Other] Prescriptions as of 12/02/2024 - metFORMIN ER (GLUCOPHAGE XR) 750 mg 24 hr tablet Take 750 mg by mouth daily with breakfast. - medroxyPROGESTERone (PROVERA) 10 mg tablet Take 1 tablet by mouth once daily for 10 days. 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] 04/10/2023 11/05/2023 History of hemorrhage, currently pre*04/10/2023 11/05/2023 Encounter for supervision of high risk pregnanc*08/21/2023 11/05/2023 Encounter Status:Closed by DOE GILMORE on 12/02/24 E2 Collected: 11/16/2024 9:16 AM Status: F [facility] TYPE CODE TESTS RESULT OUT OF RANGE REFERENCE UNITS LAB E2(LOINC) Estradiol Level 269.59 pg/mL Result Comment: Note - New Reference Range in effect 20 Adult Female E2 Reference Ranges: Follicular phase 19.5 - 144.2 pg/mL Midcycle 63.9 - 356.7 pg/mL Luteal phase 55.8 - 214.2 pg/mL Post menopausal 0 - 33.2 pg/mL Performed By: #### PROG, E2 #### [address] [address] PROG Collected: 11/16/2024 9:16 AM Status: F [facility] TYPE CODE TESTS RESULT OUT OF RANGE REFERENCE UNITS LAB PROG(LOINC) Progesterone Level 31.5 ng/mL Result Comment: Adult Female Progesterone Reference Ranges: Follicular phase <0.21 - 1.40 ng/mL Luteal phase 3.34 - 25.56 ng/mL Mid-Luteal phase 4.44 - 28.03 ng/mL Postmenopausal <0.21 - 0.73 ng/ml Female: First trimester 11.22 - 90.00 ng/ml Second trimester 25.55 - 89.40 ng/ml Third trimester 48.40 - 422.50 ng/ml Performed By: #### PROG, E2 #### [address] [address] CNOV Observed: 09/11/2024 3:40 PM Status: COMPLETED Source: [facility] Office Visit (OBGYWM) KACI TREJO ([id number]) 1995 F Date Time Provider Department 09/11/24 3:40 PM TAMMI SETHI OBGYWM During your visit today, we recorded the following information about you: Blood pressure Weight 108/68 118.8 kg Tammi Sethi MD 09/11/2024 5:28 PM Signed Kaci Trejo is a 29 year old female who presents for problem visit - amenorrhea since stopped . HPI: Known history of PCOS. Had workup completed with [facility] and Dr. Neymar Castellon. Stopped in the fall 2023. Planning on following up with [facility] office here soon. [facility] office started her on Metformin but this did not help with resumption of periods. OB History Gravida3 Para2 Term2 Preterm0 AB1 Living2 SAB1 IAB0 Ectopic0 Multiple0 Live Births2 Title Inspector History LMP: 01/27/2023, Age at Menarche: Age at First : Age at Menopause: Title Inspector History Comments: Sexual Activity: Yes; Male Contraception: No contraception data on record PAST MEDICAL HISTORY Diagnosis Date Anemia Bleeding in early 04/02/2023 Dysmenorrhea History of hemorrhage, currently 04/10/2023 Infertility counseling Infertility, female PCOS (polycystic ovarian syndrome) Seizure (HCC) Uterine polyp PAST SURGICAL HISTORY Procedure Laterality Date DANDC, DIAG AND/OR THERAPEUTIC 10/28/2020 missed ab EMBRYO FROZEN TRANSFER HYSTEROSCOPY, DIAGNOSTIC (SEPARATE Hysteroscopy, DANDC, uterine polypectomy Gm Chávez L'SCOPE DX W/WO BRUSHINGS/WASHINGS 05/19/2020 peritoneal biopsies, lysis of adhesions, ovarian drilling, Dr Davy Smith FAMILY HISTORY Problem Relation Age of Onset Hypertension Mother Heart Attack Father Asthma Father No Known Problems Sister No Known Problems Sister Cancer Maternal Grandmother Kidney failure Maternal Grandfather Stroke Maternal Grandfather No Known Problems Paternal Grandmother No Known Problems Paternal Grandfather No Known Problems Daughter Social History Tobacco Use Smoking status: Never Smokeless tobacco: Never Vaping Use Vaping status: Never Used Substance Use Topics Alcohol use: Not Currently Drug use: Never Current Outpatient Medications Medication Sig metFORMIN ER (GLUCOPHAGE XR) 750 mg 24 hr tablet Take 750 mg by mouth daily with breakfast. medroxyPROGESTERone (PROVERA) 10 mg tablet Take 1 tablet by mouth once daily for 10 days. No current facility-administered medications for this visit. Allergies As of Date: 09/11/2024 Allergen Noted Reaction AMOXICILLIN 03/02/2018 Vomiting DERMABOND [2-OCTYL CYANOACRYLATE] 04/02/2023 Swelling Fully Assessed 09/11/2024 REVIEW OF SYSTEMS Expanded ROS: N/A Allergies and current medication updated:Yes SENSITIVE EXAM: Sensitive exam not performed. EXAM: BP 108/68 Wt 262 lb (118.8kg) LMP 01/27/2023 GENERAL: pleasant, female in no apparent distress HEENT: Normocephalic and atraumatic NECK: full range of motion DERMATOLOGY: Normal, without lesions, non-icteric, and non-hirsute BREAST: deferred CHEST: Normal inspiratory effort ABDOMEN: Deferred PELVIC: deferred BIMANUAL: deferred NEURO: exam grossly non-focal EXTREMITIES: normal ASSESSMENT AND PLAN: Assessment AND Plan PCOS (polycystic ovarian syndrome) Secondary amenorrhea Discussed likely secondary to known PCOS. Plans on following up with [facility] office soon. Rx sent for Provera to induce period. Tammi Sethi, Medical Decision Making: Problems: Moderate: 1+ chronic illnesses with change Risk: Moderate: Drug management Medical Decision Making Level: 4 - Moderate Allergies As of Date: 09/11/2024 Noted Allergy Reaction AMOXICILLIN 03/02/2018 11 - Vomiting DERMABOND (2-OCTYL CYANOACRYLATE) 04/02/2023 7 - Swelling Date Reviewed: 09/11/2024 Reviewed by: Christen Eduardo MA - Fully Assessed Reason for Visit: Menstrual Problem [67] Primary Visit Diagnosis:PCOS (polycystic ovarian syndrome) [E28.2] Other Visit Diagnosis:Secondary amenorrhea [N91.1] Order(s):medroxyPROGESTERone (PROVERA) 10 mg tabletTake 1 tablet by mouth once daily for 10 days.Disp: 10 tabletRfl: 4 Prescriptions as of 09/11/2024 - metFORMIN ER (GLUCOPHAGE XR) 750 mg 24 hr tablet Take 750 mg by mouth daily with breakfast. - medroxyPROGESTERone (PROVERA) 10 mg tablet Take 1 tablet by mouth once daily for 10 days. 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 Medications Discontinued During This Encounter Prescriptions - dilTIAZem ointment 2% (CPD) (Discontinued) Reported on 09/11/2024 - albuterol HFA (PROVENTIL HFA) 90 mcg/actuation inhaler (Discontinued) Reported on 09/11/2024 - 25/iron fum/folic/dha (-1 ORAL) (Discontinued) Reported on 09/11/2024 Encounter Status:Closed by TAMMI SETHI on 09/11/24 PROGRESS Observed: 09/11/2024 3:29 PM Status: COMPLETED Source: [facility] ID: [id number] Author: TAMMI SETHI MD Service: ? Author Type: Physician Type: Progress Notes Filed: 09/11/2024 17:28 Note Text: Kaci Trejo is a 29 year old female who presents for problem visit - amenorrhea since stopped . HPI: Known history of PCOS. Had workup completed with [facility] and Dr. Neymar Castellon. Stopped in the fall 2023. Planning on following up with [facility] office here soon. [facility] office started her on Metformin but this did not help with resumption of periods. OB History Gravida3 Para2 Term2 Preterm0 AB1 Living2 SAB1 IAB0 Ectopic0 Multiple0 Live Births2 Title Inspector History LMP: 01/27/2023, Age at Menarche: Age at First : Age at Menopause: Title Inspector History Comments: Sexual Activity: Yes; Male Contraception: No contraception data on record PAST MEDICAL HISTORY Diagnosis Date Anemia Bleeding in early 04/02/2023 Dysmenorrhea History of hemorrhage, currently 04/10/2023 Infertility counseling Infertility, female PCOS (polycystic ovarian syndrome) Seizure (HCC) Uterine polyp PAST SURGICAL HISTORY Procedure Laterality Date DANDC, DIAG AND/OR THERAPEUTIC 10/28/2020 missed ab EMBRYO FROZEN TRANSFER HYSTEROSCOPY, DIAGNOSTIC (SEPARATE Hysteroscopy, DANDC, uterine polypectomy Gm Chávez L'SCOPE DX W/WO BRUSHINGS/WASHINGS 05/19/2020 peritoneal biopsies, lysis of adhesions, ovarian drilling, Dr Davy Smith FAMILY HISTORY Problem Relation Age of Onset Hypertension Mother Heart Attack Father Asthma Father No Known Problems Sister No Known Problems Sister Cancer Maternal Grandmother Kidney failure Maternal Grandfather Stroke Maternal Grandfather No Known Problems Paternal Grandmother No Known Problems Paternal Grandfather No Known Problems Daughter Social History Tobacco Use Smoking status: Never Smokeless tobacco: Never Vaping Use Vaping status: Never Used Substance Use Topics Alcohol use: Not Currently Drug use: Never Current Outpatient Medications Medication Sig metFORMIN ER (GLUCOPHAGE XR) 750 mg 24 hr tablet Take 750 mg by mouth daily with breakfast. medroxyPROGESTERone (PROVERA) 10 mg tablet Take 1 tablet by mouth once daily for 10 days. No current facility-administered medications for this visit. Allergies As of Date: 09/11/2024 Allergen Noted Reaction AMOXICILLIN 03/02/2018 Vomiting DERMABOND [2-OCTYL CYANOACRYLATE] 04/02/2023 Swelling Fully Assessed 09/11/2024 REVIEW OF SYSTEMS Expanded ROS: N/A Allergies and current medication updated:Yes SENSITIVE EXAM: Sensitive exam not performed. EXAM: BP 108/68 Wt 262 lb (118.8kg) LMP 01/27/2023 GENERAL: pleasant, female in no apparent distress HEENT: Normocephalic and atraumatic NECK: full range of motion DERMATOLOGY: Normal, without lesions, non-icteric, and non-hirsute BREAST: deferred CHEST: Normal inspiratory effort ABDOMEN: Deferred PELVIC: deferred BIMANUAL: deferred NEURO: exam grossly non-focal EXTREMITIES: normal ASSESSMENT AND PLAN: Assessment AND Plan PCOS (polycystic ovarian syndrome) Secondary amenorrhea Discussed likely secondary to known PCOS. Plans on following up with [facility] office soon. Rx sent for Provera to induce period. Tammi Sethi DO Medical Decision Making: Problems: Moderate: 1+ chronic illnesses with change Risk: Moderate: Drug management Medical Decision Making Level: 4 - Moderate ALLERGIES DATE TYPE / CODE NAME / CODE REACTION SEVERITY SOURCE 04/02/2023 DRUG INGREDI/[id number] 03(SNOMED CT) 2-OCTYL CYANOACRYLATE SWELLING [facility] 03/02/2018 DRUG INGREDI/[id number] 03(SNOMED CT) AMOXICILLIN Vomiting [facility] ENCOUNTERS ADMIT/DISCHARGE ACCOUNT NUMBER ADMITTING ENCOUNTER CLASS LOCATION SOURCE 03/19/2025/ 5 [id number] [facility] 03/17/2025/ 5 [id number] [facility] 03/15/2025/ 5 [id number] [facility] 03/12/2025/ 5 [id number] [facility] 03/05/2025/ 5 [id number] Amb[facility] 12/17/2024/ 5 [id number] Amb[facility] 12/14/2024/ 5 [id number] Ambulatory [facility] 12/04/2024/ 5 [id number] Ambulatory [facility] 11/16/2024/ 5 [id number] Ambulatory [facility]Building:[facility] 09/11/2024/ 5 [id number] Ambulatory [facility] ing:[facility] PAYERS ENCOUNTER GUARANTOR PAYER SUBSCRIBER SOURCE 03/19/2025 KACI ORRB: [address] [place] [email or web address]: (HP) Primary Insurance:[employer] BL[employer]OSS INSCOPolicy Number: [id number] e Date:0981-59-11Fbfa Name:[place] [address]GW: ASHLEY ORRB: [id number] [place], [place] [address]Tel: (HP) (WP) MONO TERRANCEEDILSON 03/17/2025 KACI ORRB: [id number] [address] [place] [email or web address]: (HP) Primary Insurance:[employer] BLUE CROSS INSCOPolicy Number: [id number] e Date:7418-01-41Uhks Name:[facility] KELLIE [place]9300[place] [address]RF: ASHLEY ORRB: [id number] STATE [address] [address]Vvz: (WP) MONOIRVING CARLOSILLORadha 03/15/2025 KACI ORRB: [id number] STATE [address] [email or web address]: (HP) Primary Insurance:[employer] BLUE CROSS INSCOPolicy Number: [id number] e Date:5812-75-35Jsjs Name:[place] [address]LQ: ASHLEY MURPHYPPDOB: [id number] [address] [place] [address]Jvt: (WP) [facility] 03/12/2025 KACI Ingrid TREJODOB: STATE [address] [email or web address]: (HP) Primary Insurance:[employer] BLUE CROSS INSCOPolicy Number: [id number] e Date:7777-49-35Ffgu Name:[place] [address]LA: ASHLEY ORRB: [id number] STATE [address] [address]Esq: (WP) [facility] 03/05/2025 KACI Ingrid TREJODOB: STATE [address] [email or web address]: (HP) Primary Insurance:[employer] BL[employer] CROSS INSCOPolicy Number: [id number] e Date:2942-35-54Rutl Name:[place] [address]YK: ASHLEY ORRB: [id number] STATE [address] [address]Kpb: (WP) [facility] 12/17/2024 KACI Ingrid MURPHYPPDOB: STATE [address] [email or web address]: (HP) Primary Insurance:[employer] BL[employer] CROSS INSCOPolicy Number: [id number] e Date:5651-72-81Pwsz Name:[place] [address]GS: ASHLEY RODRIGEZ: [id number] [address] [address]Mhn: (WP) [facility] 12/14/2024 KACI Ingrid ORRB: [address] [email or web address]: (HP) Primary Insurance:[employer] BL[employer] CROSS INSCOPolicy Number: [id number] e Date:0083-78-83Jybz Name:[place] [address]OI: ASHLEY ORRB: [id number] [place], [place] [address]Tel: (WP) [facility] 12/04/2024 Primary Insurance:BLUE ACCESS PPOPolicy Number: [id number] e Date:2385-67-85Xnvw Name:JORGEASHLEY RODRIGEZ: [id number] [address] [address] [facility] 11/16/2024 KACI Ingrid TREJODOB: [address] [email or web address]: (HP) Primary Insurance:[employer] BL[employer] CROSS INSCOPolicy Number: [id number] e Date:2930-04-82Kohn Name:[place] [address]RU: ASHLEY RODRIGEZ: [id number] [address] [address]Hph: (WP) [facility] 09/11/2024 Primary Insurance:BLUE ACCESS PPOPolicy Number: [id number] e Date:2127-89-08Rxwi Name:Yasmine RODRIGEZ: [id number] [id number] [place] [address]
[2025-03-30 04:07] LABS: PROGESTERONE 37.4 ng/mL (.)
== END | disposition home or self-care (01) ==
LOC: LAB 10:00
PROVIDERS: PCP Physician Assistant; Referring Provider Obstetrics & Gynecology Reproductive Endocrinology; Visit Provider Obstetrics & Gynecology Reproductive Endocrinology
DX: Z31.49 Encounter for other procreative investigation and testing (principal)
CPT/HCPCS: 36415; 82670; 84144

== ENCOUNTER → 2025-04-02 | Outpatient (CLI) | payer BC, SELFPAY ==
[2025-04-02 11:22] LABS: hCG Titer Quant., Serum 100 mIU/mL (<9 non-preg)
[2025-04-03 04:07] LABS: PROGESTERONE 19.8 ng/mL (.)
== END | disposition home or self-care (01) ==
PROVIDERS: PCP Physician Assistant; Referring Provider Obstetrics & Gynecology Reproductive Endocrinology; Visit Provider Obstetrics & Gynecology Reproductive Endocrinology
DX: Z32.00 Encounter for pregnancy test, result unknown (principal)
CPT/HCPCS: 36415; 84144; 84702

== ENCOUNTER → 2025-04-05 | Outpatient (CLI) | payer BC, SELFPAY ==
[2025-04-05 09:48] LABS: hCG Titer Quant., Serum 383 mIU/mL (<9 non-preg)
[2025-04-06 04:07] LABS: PROGESTERONE 36.2 ng/mL (.)
== END | disposition home or self-care (01) ==
LOC: LAB 08:16
PROVIDERS: PCP Physician Assistant; Referring Provider Obstetrics & Gynecology Reproductive Endocrinology; Visit Provider Obstetrics & Gynecology Reproductive Endocrinology
DX: Z32.01 Encounter for pregnancy test, result positive (principal)
CPT/HCPCS: 36415; 82670; 84144; 84443; 84702

== ENCOUNTER → 2025-04-15 | Outpatient (CLI) | payer BC, SELFPAY ==
[2025-04-15 13:00] LABS: hCG Titer Quant., Serum 17951 mIU/mL (<9 non-preg)
[2025-04-16 04:07] LABS: PROGESTERONE 26.1 ng/mL (.)
== END | disposition home or self-care (01) ==
LOC: LAB 10:41
PROVIDERS: PCP Physician Assistant; Referring Provider Obstetrics & Gynecology Reproductive Endocrinology; Visit Provider Obstetrics & Gynecology Reproductive Endocrinology
DX: O09.00 Supervision of pregnancy with history of infertility, unspecified trimester (principal); Z3A.00 Weeks of gestation of pregnancy not specified
CPT/HCPCS: 36415; 82670; 84144; 84702

== ENCOUNTER → 2025-04-22 | Outpatient (CLI) | payer BC, SELFPAY ==
[2025-04-22 11:35] LABS: hCG Titer Quant., Serum 65360 mIU/mL (<9 non-preg)
[2025-04-23 08:09] LABS: PROGESTERONE 35.7 ng/mL (.)
== END | disposition home or self-care (01) ==
LOC: LAB 10:01
PROVIDERS: PCP Physician Assistant; Referring Provider Obstetrics & Gynecology Reproductive Endocrinology; Visit Provider Obstetrics & Gynecology Reproductive Endocrinology
DX: O09.00 Supervision of pregnancy with history of infertility, unspecified trimester (principal); Z3A.00 Weeks of gestation of pregnancy not specified
CPT/HCPCS: 36415; 82670; 84144; 84702